=== PATIENT | female | born 2000 | race Caucasian/White ===

== ENCOUNTER 2024-10-01 16:51 | Outpatient (OUT) | payer OTHER, SELFPAY ==
--- NOTE | 2024-10-01 17:05 | US_ITS ---
The [address] [address] Patient Name: YEFRI CURRAN MRN: [id number] date: 2000 Sex: F Assigned Patient Location: Current Patient Location: Accession/Order Number: [id number] Exam Date: 10/01/2024 17:09 Report Date: 10/04/2024 08:05 At the request of: CHELO MYERS Procedure: US OB growth EXAMINATION: US OB growth HISTORY: O26.849 COMPARISON: No relevant comparison available. FINDINGS: Heart Rate: 139.18 bpm Amniotic Fluid Volume: 15.1 cm; normal range Number: 1 Position: BREECH BIOMETRY: BPD: 7.06 cm; 28 weeks 2 days; 3.30 % HC: 27.83 cm; 30 weeks 3 days; 23 % AC: 24.98 cm; 29 weeks 1 day; 18.80 % FL: 5.55 cm; 29 weeks 2 days; 13.90 % EFW: 1363.39 g; 13.50 % FL/AC: 22.21 FL/BPD: 78.58 HC/AC: 1.11 GESTATIONAL AGE: Age by EDC: 30 weeks 1 day MIHIR by EDC: 2024-12-09 Age by US: 29 weeks 2 days MIHIR by US: 2024-12-15 US/US OB growth IMPRESSION: 1. Single live intrauterine with growth detailed above. 2. Biparietal diameter is at the 3rd percentile. Electronically authenticated by: AMARJIT MARQUEZ Date: 10/04/2024 08:05
== END 2024-10-01 16:52 | disposition home or self-care (01) ==
PROVIDERS: PCP Family Medicine; Visit Provider Midwife
DX: O26.843 Uterine size-date discrepancy, third trimester (principal); Z3A.29 29 weeks gestation of pregnancy
CPT/HCPCS: 76816

== ENCOUNTER 2024-10-25 10:30 | Observation (INO) | payer OTHER, SELFPAY ==
[2024-10-25] VITALS (67 sets, daily range): BP systolic 116–142; BP diastolic 74–91; PULSE 73–134; TEMP 36.4
--- OUTSIDE RECORDS SUMMARY | 2024-10-25 10:39 | XMS_ITS | CCD ---
Author Organization [facility] Care Team Providers Care Subassembly Assembler Name Role Phone Johanne Meza MD Primary Care Provider Johanne Meza MD Unavailable HIWOT BRYANT Attending Unavailable JOHANNE MEZA Primary Care Unavailable Johanne Meza MD Unavailable JOHANNE MEZA Primary Care Unavailable CASANDRA KINCAID Attending Unavailable CASANDRA KINCAID Referring Unavailable CALLI OJHANNE A Primary Care Unavailable Johanne Meza MD Primary Care Provider [phone] Johanne Meza MD Primary Care Provider [phone] [place] Referring Unavailable CALLI JOHANNE A Primary Care Unavailable BESS GONZALEZ Attending Unavailable FLORO, CHELO Referring Unavailable MEZA, JOHANNE A Primary Care Unavailable FLORO, CHELO L Attending Unavailable TANYA ROCHE Attending Unavailable FLORO, CHELO L Attending Unavailable FLORO, CHELO L Attending Unavailable FLORO, CHELO L Referring Unavailable FLORO, CHELO L Attending Unavailable FLORO, CHELO L Attending Unavailable FLORO, CHELO L Attending Unavailable FLORO, CHELO L Attending Unavailable FLORO, CHELO L Attending Unavailable FELICIANO CHAPA Attending Unavailable FLORO, CHELO L Attending Unavailable Allergies Allergy Classification Reported Allergen(s) Allergy Type Date of Onset Reaction(s) Facility (4 sources) Wheat gluten extract; Translations: [GLUTEN] Drug Allergy 0 Other: See Comments [facility] (20 sources) Ketamine; Translations: [KETAMINE] Drug Allergy 1 Seizures [facility] Medications Current Medications Medication Drug Class(es) Dates Sig (Normalized) Sig (Original) acetaminophen 325 mg / butalbital 50 mg / caffeine 40 mg oral tablet (10 sources) Barbiturate, Central Nervous System Stimulant, Methylxanthine Start: 06-14-2024 End: 07-14-2024 take 1 tablet by mouth every six hours as needed for headache and headache and headache butalbital-aceta minophen-caffein e 50-325-40 MG tablet Indications: headache in second trimester Take 1 tablet by mouth every 6 (six) hours if needed for headaches 20 tablet 06/14/2024 07/14/2024 Active folic acid 0.8 mg oral tablet (20 sources) Start: 05-14-2024 End: 08-12-2024 take 1 tablet by mouth once daily folic acid (Folvite) 800 MCG tablet Indications: Seizure disorder (CMS/HCC) Take 1 tablet (0.8 mg) by mouth Daily 90 tablet 3 05/14/2024 08/12/2024 Active Start: 06-01-2023 End: 05-08-2025 take 1 tablet by mouth once daily folic acid (Folvite) 1 MG tablet Indications: 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 180 tablet 3 06/07/2022 Active Comment on above: Take 1 tablet by jacquelyn once daily. 24 hr levETIRAcetam 500 mg extended release oral tablet (20 sources) Start: 4 End: 4 take 4 tablets by mouth once daily at bedtime levETIRAcetam XR (Keppra XR) 500 MG 24 hr tablet Indications: Seizure disorder (CMS/HCC) TAKE FOUR TABLETS BY MOUTH EVERY NIGHT AT BEDTIME 120 tablet 3 09/13/2024 Active Start: 05-14-2024 End: 10-03-2024 take 1 tablet by mouth once daily levETIRAcetam XR (Keppra XR) 500 MG 24 hr tablet Indications: Seizure disorder (CMS/HCC) Take 1 tablet (500 mg) by mouth Daily 90 tablet 3 07/05/2024 07/05/2024 Discontinued (Reorder) Start: 07-29-2023 End: 05-14-2024 take 4 tablets by mouth every twenty-four hours at bedtime levETIRAcetam XR (Keppra XR) 500 MG 24 hr tablet Indications: Seizure disorder (CMS/HCC) Take 4 tablets (2,000 mg) by mouth at bedtime. 120 tablet 11 07/29/2023 05/14/2024 Discontinued Start: 10-08-2021 End: 06-06-2023 take 1 tablet by mouth once daily at bedtime levETIRAcetam XR (KEPPRA XR) 500 mg 24 hr tablet Indications: Generalized convulsive epilepsy without intractable epilepsy (HCC) Take (4) tablets by mouth once daily at bedtime (=2000mg/day). 360 tablet 3 06/07/2022 06/06/2023 Active take 1 tablet by jacquelyn th in the morning levETIRAcetam (KEPPRA) 250 mg tablet Take 1 tablet (250 mg total) by mouth in the morning. Active Comment on above: Take (4) tablets by mouth once daily at bedtime (=2000mg/day). Magnesium Oxide (5 sources) magnesium oxide (Mag-Ox) 400 mg tablet 400 mg Daily Active ondansetron 8 mg disintegrating oral tablet (10 sources) Serotonin-3 Receptor Antagonist Start: End: take 1 tablet by mouth every eight hours as needed for nausea and vomiting and headache and headache ondansetron ODT (Zofran-ODT) 8 MG disintegrating tablet Indications: headache in second trimester Take 1 tablet (8 mg) by mouth every 8 (eight) hours if needed for nausea or vomiting 20 tablet 1 06/14/2024 07/14/2024 Active es960-pcym-zblrk acid ( 19) 29 mg iron- 1 mg tablet,chewable (1 source) yp752-apkm-crfbs acid ( 19) 29 mg iron- 1 mg tablet,chewable Chew 1 tablet and swallow in the morning. Active sucralfate 1000 mg oral tablet (1 source) Aluminum Complex Start: End: take 1 tablet by mouth at bedtime sucralfate (CARAFATE) 1 gram tablet Take 1 tablet (1 g total) by mouth in the morning and 1 tablet (1 g total) at noon and 1 tablet (1 g total) in the evening and 1 tablet (1 g total) before bedtime. Do all this for 14 days. 56 tablet 0 12/20/2023 01/03/2024 Active terbinafine hydrochloride 10 mg/ml topical cream (10 sources) Allylamine Antifungal Start: terbinafine (LamISIL AT) 1 % cream Indications: Skin rash Apply topically 2 (two) times a day 28 g 1 09/04/2024 Active Problems Active Problems Problem Classification Problem Date Documented Da te Episodic/Chronic Abdominal pain (2 sources) Epigastric pain; Translations: [Abdominal pain] Onset: 12-20-2023 Episodic Epilepsy; convulsions (20 sources) Generalized convulsive epilepsy; Translations: [Generalized idiopathic epilepsy and epileptic syndromes, not intractable, without status epilepticus] Onset: 06-18-2015 Chronic Menstrual disorders (2 sources) Amenorrhea; Translations: [Amenorrhea, unspecified] 05-03-2024 Chronic Other complications of (2 sources) Seizure disorder; Translations: [Diseases of the nervous system complicating , second trimester] Onset: 07-25-2024 07-25-2024 Episodic Other complications of (1 source) Diseases of the nervous system complicating , second trimester; Translations: [Diseases of the nervous system complicating , second trimester] Onset: 07-25-2024 Episodic Other complications of (4 sources) Headache; Translations: [Other specified related conditions, second trimester] 08-07-2024 Episodic Other complications of (4 sources) Finding related to ; Translations: [ related conditions, unspecified, third trimester] 09-04-2024 Episodic Other connective tissue disease (2 sources) Pain in left foot; Translations: [Pain in left foot] 09-21-2024 Episodic Other and delivery including normal (12 sources) Second trimester ; Translations: [Encounter for supervision of normal first , second trimester] 08-07-2024 Episodic Other screening for suspected conditions (not mental disorders or infectious disease) (5 sources) Encounter for other specified screening; Translations: [Patient encounter status] Onset: 07-25-2024 09-04-2024 Episodic Other skin disorders (2 sources) Eruption; Translations: [Rash and other nonspecific skin eruption] 09-04-2024 Episodic Other skin disorders (2 sources) Ingrowing toenail; Translations: [Ingrowing nail] 09-21-2024 Episodic Unclassified (1 source) HIGH STOMACH PAINS, Onset: 12-20-2023 Unclassified (20 sources) OB Reminders Onset: 05-19-2024 05-19-2024 Unclassified (1 source) stable seizure disordor . Onset: 07-25-2024 Past or Other Problems Problem Classification Problem Date Documented Da te Episodic/Chronic Other complications of (2 sources) Hyperemesis gravidarum; Translations: [Vomiting of , unspecified] 06-14-2024 Episodic NEGATED: Highlighted row has been ruled out!Unclassified (1 source) No known active problems 02-06-2021 Results Test Name Value Interpretation Reference Range Facility Bacteria identified Cx Nom ( U)on 05-06-2024 Appearance (U) Adequate [facility] Internal identifier for Provider [id number] [facility] Specimen source Nom (Unsp spec) URINE [facility] STATUS FINAL formerly [facility] Laboratory - Drug toxicology on 05-06-2024 4-Ralarfowmg-4,5-Dimethy l-3,3-Diphenylpyrrolidin e (EDDP) Ql (U) Negative NINF - 100 ng/mL [facility] Amphetamines Ql (U) Negative NINF - 5 00 ng/mL [facility] Barbiturates Ql (U) Negative NINF - 3 00 ng/mL [facility] Benzodiazepines Ql (U) Negative NINF - 100 ng/mL [facility] Benzoylecgonine Ql (U) Negative NINF - 150 ng/mL [facility] Opiates Ql (U) Negative NINF - 100 ng/mL [facility] oxyCODONE Ql (U) Negative NINF - 100 ng/mL [facility] Phencyclidine Ql (U) Negative NINF - 25 ng/mL [facility] Tetrahydrocannabinol Screen method >20 ng/mL Ql (U) Negative NINF - 20 ng/mL [facility] Laboratory - Microbiology an d Antimicrobial susceptibilityon 05-06-2024 Bacteria identified Cx Nom (U) SEE NOTE [facility] Comment on above: Mixed genital oma isolated. These superficial bacteria are not indicative of a urinary tract infection. No further organism identification is warranted on this specimen. If clinically indicated, recollect clean-catch, mid-stream urine and transfer immediately to Urine Culture Transport Tube. Laboratory - Miscellaneous t estson 05-06-2024 Service comment (Unsp spec) [Interp] [facility] Comment on above: This urine was carol zed for the presence of WBC, RBC, bacteria, casts, and other formed elements. Only those elements seen were reported. Laboratory - Urinalysison Bacteria LM.HPF (Urine sed) [#/Area] FEW Abnormal NONE SEEN /HPF [facility] N. gonorrhoeae DNA SADIE+probe Ql (Cervical mucus)on 05-06-2024 C. trachomatis rRNA SADIE+probe Ql (Unsp spec) Not detected NOT DETECTED [facility] N. gonorrhoeae rRNA SADIE+probe Ql (Unsp spec) Not detected NOT DETECTED [facility] No Panel Informationon 05-06 (ALWAYS MESSAGE) [facility] Comment on above: See Note 1 Note 1 This drug testing is for medical treatment only. Analysis was performed as non-forensic testing and these results should be used only by healthcare providers to render diagnosis or treatment, or to monitor progress of medical conditions. For assistance with interpreting these drug results, please contact a [facility] Toxicology Specialist: [phone] ( ), M-F, 8am-6pm EST. The analytical perfo rmance characteristics of this assay, when used to test SurePath(TM) specimens have been determined by [facility]. The modifications have not been cleared or approved by the FDA. This assay has been validated pursuant to the CLIA regulations and is used for clinical purposes. For additional information, please refer to https://education.Toldo/faq/CJX465 (This link is being provided for information/ educational purposes only.) Interpretation and review of laboratory results Abnormal [facility] SPLIT 05/03/2024 FROM [id number] [employer] [facility] Organization Information Site ID: QPT Name: [facility] Address: [address] [place] [address], [address] [place] [id number] Director: Jd Crystal MD formerly [facility] Performing Organization Information Site ID: QTW Name: [facility] Address: [address] [place] [id number] Director: Verna Regan [facility] CBC panel Auto (Bld)on 05-04 Erythrocyte distribution width (RBC) [Ratio] 11.7 % 11.0 - 15.0 % [facility] Hematocrit (Bld) [Volume fraction] 40.2 % 35.0 - 45.0 % [facility] Hemoglobin (Bld) [Mass/Vol] 14.0 g/dL 11.7 - 15.5 g/dL [facility] MCH (RBC) [Entitic mass] 32.0 pg 27. 0 - 33.0 pg [facility] MCHC (RBC) [Mass/Vol] 34.8 g/dL 32.0 - 36.0 g/dL [facility] MCV (RBC) [Entitic vol] 92.0 fL 80.0 - 100.0 fL [facility] Platelet mean volume (Bld) [Entitic vol] 10.8 fL 7.5 - 12.5 fL [facility] Platelets (Bld) [#/Vol] 255 10*3/uL [facility] RBC (Bld) [#/Vol] 4.37 10*6/uL [facility] WBC (Bld) [#/Vol] 9.6 10*3/uL [facility] Laboratory - Blood bankon ABO group Nom (Bld) AB [facility] Blood group antibody screen Ql Detected [facility] Comment on above: Reference range No antibodies detected This assay is a screening test for the detection of red blood cell antibodies. The test is not to be used for pretransfusion screening or for the medical management of an alloimmunized . Rh Nom (Bld) Positive [facility] Comment on above: For additional information, please refer to http://education.Stadius/faq/KZP930 (This link is being provided for informational/ educational purposes only.) Laboratory - Chemistry and C hemistry - challengeon 05-04-2024 TSH Qn 1.33 m[IU]/L mIU/L [facility] Comment on above: Reference Range > or = 20 Years 0.40-4.50 Ranges First trimester 0.26-2.66 Second trimester 0.55-2.73 Third trimester 0.43-2.91 Laboratory - Hematology and Cell countson 05-04-2024 HbA1c (Bld) [Mass fraction] 5.1 % [facility] Comment on above: For the purpose of s creening for the presence of diabetes: <5.7% Consistent with the absence of diabetes 5.7-6.4% Consistent with increased risk for diabetes (prediabetes) > or =6.5% Consistent with diabetes This assay result is consistent with a decreased risk of diabetes. Currently, no consensus exists regarding use of hemoglobin A1c for diagnosis of diabetes in children. According to [place] Diabetes Association (ADA) guidelines, hemoglobin A1c <7.0% represents optimal control in non- diabetic patients. Different metrics may apply to specific patient populations. Standards of Medical Care in Diabetes(ADA). This test was performed on the Jason lani c503 platform. Effective 09/26/23, a change in test platforms from the Cerna Dryer Operator to the Jason lani c503 may have shifted HbA1c results compared to historical results. Based on laboratory validation testing conducted at [facility], the Jason platform relative to the Cerna platform had an average increase in HbA1c value of < or = 0.3%. This difference is within accepted variability established by the National Glycohemoglobin Standardization Program. Note that not all individuals will have had a shift in their results and direct comparisons between historical and current results for testing conducted on different platforms is not recommended. Laboratory - Microbiology an d Antimicrobial susceptibilityon 05-04-2024 HBV surface Ag IA Ql Non-Reactive NON-REACTIVE [facility] Comment on above: For additional information, please refer to http://[employer].Toldo/faq/NMU299 (This link is being provided for informational/ educational purposes only.) HCV Ab IA Ql Non-Reactive NON-REACTIVE [facility] Comment on above: HCV antibody was non-reactive. There is no laboratory evidence of HCV infection. In most cases, no further action is required. However, if recent HCV exposure is suspected, a test for HCV RNA (test code 95893) is suggested. For additional information please refer to http://education.Toldo/faq/YHN65h6 (This link is being provided for informational/ educational purposes only.) HIV 1+2 Ab+HIV1 p24 Ag IA Ql Non-Reactive NON-REACTIVE [facility] Comment on above: HIV-1 antigen and HI V-1/HIV-2 antibodies were not detected. There is no laboratory evidence of HIV infection. PLEASE NOTE: This information has been disclosed to you from records whose confidentiality may be protected by state law. If your state requires such protection, then the state law prohibits you from making any further disclosure of the information without the specific written consent of the person to whom it pertains, or as otherwise permitted by law. A general authorization for the release of medical or other information is NOT sufficient for this purpose. For additional information please refer to http://education.Toldo/faq/UTW033 (This link is being provided for informational/ educational purposes only.) The performance of this assay has not been clinically validated in patients less than 2 years old. Reagin Ab RPR Ql (S) Non-Reactive NON-REACTIVE [facility] Rubella virus IgG Qn (S) 1.80 [IU]/mL Index [facility] Comment on above: Index Interpretation ----- <0.90 Not consistent with immunity 0.90-0.99 Equivocal > or = 1.00 Consistent with immunity The presence of rubella IgG antibody suggests immunization or past or current infection with rubella virus. No Panel Informationon 05-04 COLLECTION KIT GIVEN TO PATIENT. PATIENT ADVISED TO RETURN. [employer] Organization Information Site ID: QPT Name: [facility] Address: [address] [place] [address], [address] [place] [phone] Director: Jd Crystal MD formerly [facility] HCG ( test) Ql (U)o n 05-03-2024 Interpretation and review of laboratory results Abnormal [facility] Preg Test, Ur Positive formerly [facility] US OB < 14 WEEKS EARLYon US OB < 14 WEEKS EARLY TITLE OF EXAM: OB Ultrasound: REASON FOR EXAM: Dating TECHNIQUE: Grayscale imaging is performed. Measurements: heart rate: 163 bpm Sac: 3.0 cm CRL: 1.7 cm GA for sonogram: 8.1 wk (07.5-08.8) MIHIR: 12/09/2024 Clinical Summary: Early intrauterine is seen with positive cardiac activity. Yolk sac is identified and within normal limits. heart is observed with a heart rate of 163 bpm. Uterus and adnexae: No abnormalities seen. Dictated and transcribed 05/04/24/dpd This report has been electronically signed and approved by the interpreting radiologist. Electronically Signed Vijay Jasmine M.D. 2024-05-04 15:47:45 Normal Not Available CBC AND AUTO DIFFon 12-20-19 24 ABSOLUTE BASOPHIL 0.1 X10E9/L Normal 0.0-0.[address] [facility] Comment on above: Performed By: #### C QAMAR CMP, 3040-3 #### [facility] ([id number]) [address] [place] [address] ABSOLUTE NEUTROPHIL 5.8 X10E9/L Normal 1.5-6.6 [facility] Comment on above: Performed By: #### C BCA, CMP, 3040-3 #### [facility] ([id number]) [address] [place] [address] Basophils/100 WBC (Bld) 0.6 % Normal [facility] Comment on above: Performed By: #### C BCA, CMP, 3040-3 #### [facility] ([id number]) [address] [place] [address]661 Eosinophils (Bld) [#/Vol] 1.1 10*3/uL High 0.0-0.4 [facility] Comment on above: Performed By: #### C BCA, CMP, 3040-3 #### [facility] ([id number]) [address] [place] [address] 20384 Eosinophils/100 WBC (Bld) 11.4 % Normal [facility] Comment on above: Performed By: #### C BCA, CMP, 3040-3 #### [facility] ([id number]) [address] [place] [address] Erythrocyte distribution width (RBC) [Ratio] 12.3 % Normal 11.5-15.0 [facility] Comment on above: Performed By: #### C QAMAR [facility], 3039-12 #### [facility] ([id number]) [address] [place] [address] 89300 Hematocrit (Bld) [Volume fraction] 42.4 % Normal 35-47 [facility] Comment on above: Performed By: #### Lang FOOTE [facility], 3039-12 #### [facility] ([id number]) [address] [place] [address] 09611 Hemoglobin (Bld) [Mass/Vol] 14.9 g/dL Normal 11.7-15.5 [facility] Comment on above: Performed By: #### Lang FOOTE [facility], 3039-12 #### [facility] ([id number]) [address] [place] [address] 15883 Lymphocytes (Bld) [#/Vol] 1.8 10*3/uL Normal 1.0-3.5 [facility] Comment on above: Performed By: #### Lang FOOTE [facility], 3039-12 #### [facility] ([id number]) [address] [place] [address] 30296 Lymphocytes/100 WBC (Bld) 19.0 % Normal [facility] Comment on above: Performed By: #### Lang FOOTE [facility], 3039-12 #### [facility] ([id number]) [address] [place] [address] 99631 MCH (RBC) [Entitic mass] 31.3 pg Normal 27-34 [facility] Comment on above: Performed By: #### Lang FOOTE CMP, 3039-12 #### [facility] ([id number]) [address] [place] [address] 65856 MCHC (RBC) [Mass/Vol] 35.2 g/dL Normal 32-36 [facility] Comment on above: Performed By: #### Lang FOOTE CMP, 3039-12 #### [facility] ([id number]) [address] [place] [address] 24252 MCV (RBC) [Entitic vol] 89 fL Normal 80-100 [facility] Comment on above: Performed By: #### Lang FOOTE CMP, 3039-12 #### [facility] ([id number]) [address] [place] [address] 26809 Monocytes (Bld) [#/Vol] 0.8 10*3/uL Normal 0-0.9 [facility] Comment on above: Performed By: #### Lang FOOTE CMP, 3039-12 #### [facility] ([id number]) [address] [place] [address] 77538 Monocytes/100 WBC (Bld) 8.7 % Normal [facility] Comment on above: Performed By: #### Lang FOOTE CMP, 3039-12 #### [facility] ([id number]) [address] [place] [address] 86188 Neutrophils/100 WBC (Bld) 60.3 % Normal [facility] Comment on above: Performed By: #### Lang FOOTE CMP, 3039-12 #### [facility] ([id number]) [address] [place] [address] 42276 Platelet mean volume (Bld) [Entitic vol] 8.3 fL Normal 7-12 [facility] Comment on above: Performed By: #### Lang FOOTE CMP, 3039-12 #### [facility] ([id number]) [address] [place] [address] 71047 Platelets (Bld) [#/Vol] 231 10*3/uL Normal 150-450 [facility] Comment on above: Performed By: #### C BCA, CMP, 3040-3 #### [facility] ([id number]) [address] [place] [address] 39568 RBC COUNT 4.76 X10E12/L Normal 3.80-5.20 [facility] Comment on above: Performed By: #### C BCA, CMP, 0-3 #### [facility] ([id number]) [address] [place] [address] 83300 WBC (Bld) [#/Vol] 9.7 10*3/uL Normal 4.0-11.[address] [facility] Comment on above: Performed By: #### C BCA, CMP, 3039-3 #### [facility] ([id number]) [address] [place] [address] 33011 COMPREHENSIVE METABOLIC PANE Manny 12-20-2023 Albumin [Mass/Vol] 4.6 g/dL Normal 3.2-5.[address] [facility] Comment on above: Performed By: #### C BCA, CMP, 3039-3 #### [facility] ([id number]) [address] [place] [address] 52565 ALP [Catalytic activity/Vol] 61 U/L Normal 39-130 [facility] Comment on above: Performed By: #### C BCA, CMP, 3039-3 #### [facility] ([id number]) [address] [place] [address] 52185 ALT [Catalytic activity/Vol] 18 U/L Normal 0-31 [facility] Comment on above: Performed By: #### C BCA, CMP, 0-3 #### [facility] ([id number]) [address] [place] [address] 68178 Anion gap [Moles/Vol] 11 mmol/L Normal 5-15 [facility] Comment on above: Performed By: #### C BCA, CMP, 0-3 #### [facility] ([id number]) [address] [place] [address] 75432 AST [Catalytic activity/Vol] 18 U/L Normal 0-41 [facility] Comment on above: Performed By: #### C SIDDHARTHA FOOET, 3039-3 #### [facility] ([id number]) [address] [place] [address]20 Bilirubin [Mass/Vol] 0.5 mg/dL Normal 0.3-1.2 [facility] Comment on above: Performed By: #### C QAMAR CMP, 3 #### [facility] ([id number]) [address] [place] [address] 80221 Calcium [Mass/Vol] 9.7 mg/dL Normal 8.5-10.[address] [facility] Comment on above: Performed By: #### C QAMAR CMP, 3 #### [facility] ([id number]) [address] [place] [address] 22657 Chloride [Moles/Vol] 101 mmol/L Normal 98-109 [facility] Comment on above: Performed By: #### C QAMAR, [facility], 3 #### [facility] ([id number]) [address] [place] [address] 49403 CO2 [Moles/Vol] 26 mmol/L Normal 22-32 [facility] Comment on above: Performed By: #### C BCA, CMP, 3 #### [facility] ([id number]) [address] [place] [address] 11671 Creatinine [Mass/Vol] 0.89 mg/dL Normal 0.40-1.00 [facility] Comment on above: Result Comment: METH OD TRACEABLE TO IDMS STANDARD Performed By: #### C QAMAR CMP, 3039-3 #### [facility] ([id number]) [address] [place] [address] 60526 eGFR (CKD-EPI) NON-RACE DEPENDENT >90 Normal >59 [facility] Comment on above: Result Comment: Reported eGFR is based on the CKD-EPI 2020 equation that does not use a race coefficient. Performed By: #### C SDIDHARTHA FOOTE, 3040-3 #### [facility] ([id number]) [address] [place] [address] 87687 Glucose [Mass/Vol] 97 mg/dL Normal 65-[address] [facility] Comment on above: Performed By: #### Lang FOOTE CMP, 3040-3 #### [facility] ([id number]) [address] [place] [address] 69207 Potassium [Moles/Vol] 3.7 mmol/L Normal 3.5-5.0 [facility] Comment on above: Performed By: #### Lang FOOTE CMP, 3040-3 #### [facility] ([id number]) [address] [place] [address] 82706 Protein [Mass/Vol] 7.8 g/dL Normal 6.0-8.[address] [facility] Comment on above: Performed By: #### Lang FOOTE CMP, 3040-3 #### [facility] ([id number]) [address] [place] [address] 59243 Sodium [Moles/Vol] 138 mmol/L Normal 134-[address] [facility] Comment on above: Performed By: #### Lang FOOTE CMP, 3040-3 #### [facility] ([id number]) [address] [place] [address] 81317 Urea nitrogen [Mass/Vol] 22 mg/dL Normal 5-23 [facility] Comment on above: Performed By: #### Lang FOOTE CMP, 3040-3 #### [facility] ([id number]) [address] [place] [address] ABDOMEN AND PELVIS W CONT on 12-20-2023 CT ABDOMEN AND PELVIS W CONT CT ABDOMEN AND PELVIS W CONT CLINICAL INFORMATION: Epigastric pain TECHNIQUE: CT ABDOMEN AND PELVIS W CONT CT images of the abdomen and pelvis are obtained. Intravenous contrast was administered. Images are reformatted in the sagittal and coronal planes. Trace free pelvic fluid is likely physiologic. No pneumoperitoneum. Bowel is nondistended. Moderate colonic stool noted. What appears to be retrocecal appendix is normal in caliber, although difficult to visualize. Kidneys enhance homogeneously without hydronephrosis. Liver and spleen are unremarkable. No CT evidence of gallstones or gallbladder distention. No obvious biliary dilatation. Portal and mesenteric vessels enhance normally. Osseous structures are intact. No gastric distention. IMPRESSION: No acute abdominal findings. Moderate colonic stool burden. All CT scans at this facility use dose modulation, iterative reconstruction, and/or weight based dosing when appropriate to reduce radiation dose to as low as reasonably achievable. 4 Finalized by Beck Dodd MD on 12/20/2023 6:36 PM Normal [facility] HCG ( test) Ql (U)o n 12-20-2023 Beta HCG ( test) Ql (U) Negative Normal NEG [facility] Comment on above: Performed By: #### 2 106-3 #### [facility] ([id number]) [address] [place] [address] 57155 LIPASEon 12-20-2023 Lipase [Catalytic activity/Vol] 28 U/L Normal 17-40 [facility] Comment on above: Performed By: #### C BCA, CMP, 3040-3 #### [facility] ([id number]) [address] [place] [address] 16171 URN MACROSCOPIC NURon 2023 BILIRUBIN ALISON Negative Normal NEG [facility] Comment on above: Performed By: #### N UM #### [facility] ([id number]) [address] [place] [address] 59008 BLOOD/HGB ALISON Negative Normal NEG [facility] Comment on above: Performed By: #### N UM #### [facility] ([id number]) [address] [place] [address] 08740 GLUCOSE ALISON Negative Normal NEG [facility] Comment on above: Performed By: #### N UM #### [facility] ([id number]) [address] [place] [address] 42701 KETONES ALISON Negative Normal NEG [facility] Comment on above: Performed By: #### N UM #### [facility] ([id number]) [address] [place] [address] 22298 LEUKOCYTE ESTERASE ALISON Negative Normal NEG [facility] Comment on above: Performed By: #### N UM #### [facility] ([id number]) [address] [place] [address] 19801 NITRITE ALISON Negative Normal NEG [facility] Comment on above: Performed By: #### N UM #### [facility] ([id number]) [address] [place] [address] 80898 PH ALISON 7.0 Normal 5.0-8.5 [facility] Comment on above: Performed By: #### N UM #### [facility] ([id number]) [address] [place] [address] 67485 PROTEIN ALISON Negative Normal NEG [facility] Comment on above: Performed By: #### N UM #### [facility] ([id number]) [address] [place] [address] [place] [address] SPECIFIC GRAVITY ALISON 1.020 Normal 1.003-1.035 [facility] Comment on above: Performed By: #### N UM #### [facility] ([id number]) [address] [place] [address] 11330 UROBILINOGEN ALISON 0.2 eu/dL Normal <1.1 [facility] Comment on above: Performed By: #### N UM #### [facility] ([id number]) [address] [place] [address], [place] [address] TONIAYari 06-23[birth year]2022 CNPN Telephone (NE50MN) ---- YEFRI XIONG ([id number]) 4 F Date Time Provider Department 06/23/22 HIWOT BRYANT NE50MN During your visit today, we recorded the following information about you: Gi Ndiaye Sec 06/23/2022 10:42 AM Signed General call : Full name of person calling: eNhal Xiong Relationship to patient: mom Phone # : [phone] Reason for call: Please mail another copy of lab order to family. Mom has not received it. Patient of Dr. Annette Mckeon RN 06/23/2022 10:48 AM Signed Lab order mailed. Liz Mckeon RN Allergies As of Date: 06/23/2022 Noted Allergy Reaction GLUTEN 2019 14 - Other: See Comments Comments: Headaches Date Reviewed: 2019 Reviewed by: Sharmaine Jackson Ma - Fully Assessed Reason for Visit: Other [Other] Cmt: Please mail another copy of lab order to family. Prescriptions as of 06/23/2022 - levETIRAcetam XR (KEPPRA XR) 500 mg 24 hr tablet Take (4) tablets by mouth once daily at bedtime (=2000mg/day). - folic acid 1 mg tablet Take 1 tablet by mouth once daily. 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 No worrisome mass lesions are seen. Endometrium appears unremarkable. No fluid is seen within the cul-de-sac. Both ovaries appear normal for this age. 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 Last seen by Dr. Bryant on 05/05/[address] Bryant from telephone encounter on 06/01/21. Yefri has had no seizures since 12/2019 on levetiracetam 1500 mg/d - but level on this dose in 05/2021 was lower - 13.6 mg/l (usual range 12-45 mg/l) - than at the time of the prior seizure on a lower dose (1000 mg/d). ? I recommend to again discuss adherence, increase the levetiracetam dose to 2000 mg/d, and recheck a level in 1 month. To maintain driving privileges, we will look for a protective serum level Received outside lab results Yes Current AEDs ( mg/kg/d/) / recent drug levels : Levetiracetam 2000 mg/day / Level on 07/08/21was 20.9 mg/L (range 12-46 mg/L) Results routed to HOLLEY Li MD 07/15/2021 4:29 PM Signed Result is normal. Plan remains as discussed previously. I agree to maintaining driving privileges. MD Liz Hill RN 07/15/2021 4:34 PM Signed Results shared via [employer] message. Liz Mckeon RN Allergies As of Date: 07/13/2021 Noted Allergy Reaction GLUTEN 2019 14 - Other: See Comments Comments: Headaches Date Reviewed: 2019 Reviewed by: Sharmaine Jackson Ma - Fully Assessed Reason for Visit: Outside Lab Results [753] Cmt: [facility] Prescriptions as of 07/15/2021 - levETIRAcetam XR (KEPPRA XR) 500 mg 24 hr tablet Take (4) tablets by mouth once daily at bedtime (=2000mg/day). - folic acid 1 mg tablet Take 1 tablet by mouth once daily. 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 Encounter Status:Closed by LIZ MCKEON on 07/15/21 Normal [facility] Vital Signs Date Time Vital Sign Value Performing Clinician Faci lity 10-08-2024 16:05-0500 Body mass index (BMI) [Ratio] 27.73 kg/m2 Chelo Briscoe CNM Work Phone: [facility] 10-08-2024 16:05-0500 Body weight 64.41 kg Chelo Floro CNM Work Phone: [facility] 10-08-2024 16:05-0500 Diastolic blood pressure 78 mm[Hg] Chelo Floro CNM Work Phone: [facility] 10-08-2024 16:05-0500 Systolic blood pressure 120 mm[Hg] Chelo Floro CNM Work Phone: [facility] 09-21-2024 08:52-0500 Body height 152.4 cm Feliciano Chapa DPM Work Phone: [facility] 09-21-2024 08:52-0500 Body mass index (BMI) [Ratio] 27.15 kg/m2 Feliciano Chapa DPM Work Phone: [facility] 09-21-2024 08:52-0500 Body weight 63.05 kg Feliciano Chapa DPM Work Phone: [facility] 09-04-2024 14:25-0500 Body mass index (BMI) [Ratio] 27.15 kg/m2 Chelo Floro CNM Work Phone: [facility] 09-04-2024 14:25-0500 Body weight 63.05 kg Chelo Floro CNM Work Phone: [facility] 09-04-2024 14:25-0500 Diastolic blood pressure 80 mm[Hg] Chelo Floro CNM Work Phone: [facility] 09-04-2024 14:25-0500 Systolic blood pressure 118 mm[Hg] Chelo Floro CNM Work Phone: [facility] 08-07-2024 14:33-0400 Body mass index (BMI) [Ratio] 26.95 kg/m2 Chelo Floro CNM Work Phone: [facility] 08-07-2024 14:33-0400 Body weight 62.6 kg Chelo Floro CNM Work Phone: [facility] 08-07-2024 14:33-0400 Diastolic blood pressure 74 mm[Hg] Chelo Floro CNM Work Phone: [facility] 08-07-2024 14:33-0400 Systolic blood pressure 118 mm[Hg] Chelo Floro CNM Work Phone: [facility] 07-25-2024 11:40-0400 Body height 152.4 cm Bess Gonzalez MD Work Phone: [facility] 07-25-2024 11:40-0400 Body mass index (BMI) [Ratio] 25.62 kg/m2 Bess Gonzalez MD Work Phone: [facility] 07-25-2024 11:40-0400 Body weight 59.51 kg Bess Gonzalez MD Work Phone: [facility] 07-25-2024 11:40-0400 Diastolic blood pressure 77 mm[Hg] Bess Gonzalez MD Work Phone: [facility] 07-25-2024 11:40-0400 Heart rate 78 /min Bess Gonzalez MD Work Phone: [facility] 07-25-2024 11:40-0400 Systolic blood pressure 132 mm[Hg] Bess Gonzalez MD Work Phone: [facility] 07-02-2024 16:35-0400 Body mass index (BMI) [Ratio] 24.8 kg/m2 Chelo Floro CNM Work Phone: [facility] 07-02-2024 16:35-0400 Body weight 57.61 kg Chelo Floro CNM Work Phone: [facility] 07-02-2024 16:35-0400 Diastolic blood pressure 70 mm[Hg] Chelo Floro CNM Work Phone: [facility] 07-02-2024 16:35-0400 Systolic blood pressure 120 mm[Hg] Chelo Floro CNM Work Phone: [facility] 06-14-2024 09:42-0400 Body mass index (BMI) [Ratio] 24.22 kg/m2 Chelo Floro CNM Work Phone: [facility] 06-14-2024 09:42-0400 Body weight 56.25 kg Chelo Floro CNM Work Phone: [facility] 06-14-2024 09:42-0400 Diastolic blood pressure 70 mm[Hg] Chelo Floro CNM Work Phone: [facility] 06-14-2024 09:42-0400 Systolic blood pressure 120 mm[Hg] Chelo Floro CNM Work Phone: [facility] 06-04-2024 15:43-0400 Body mass index (BMI) [Ratio] 23.83 kg/m2 Chelo Floro CNM Work Phone: [facility] 06-04-2024 15:43-0400 Body weight 55.34 kg Chelo Floro CNM Work Phone: [facility] 06-04-2024 15:43-0400 Diastolic blood pressure 80 mm[Hg] Chelo Floro CNM Work Phone: [facility] 06-04-2024 15:43-0400 Systolic blood pressure 118 mm[Hg] Chelo Floro CNM Work Phone: [facility] 05-03-2024 15:10-0400 Body mass index (BMI) [Ratio] 24.22 kg/m2 Chelo Floro CNM Work Phone: [facility] 05-03-2024 15:10-0400 Body weight 56.25 kg Chelo Floro CNM Work Phone: [facility] 11-18-2023 10:47-0500 Body height 152.4 cm Tanya Roche MD Work Phone: [facility] 11-18-2023 10:47-0500 Body mass index (BMI) [Ratio] 24.8 kg/m2 Tanya Roche MD Work Phone: [facility] 11-18-2023 10:47-0500 Body weight 57.61 kg Tanya Roche MD Work Phone: [facility] 11-18-2023 10:47-0500 Diastolic blood pressure 78 mm[Hg] Tanya Roche MD Work Phone: [facility] 11-18-2023 10:47-0500 Heart rate 68 /min Tanya Roche MD Work Phone: [facility] 11-18-2023 10:47-0500 Systolic blood pressure 122 mm[Hg] Tanya Roche MD Work Phone: [facility] Encounters Encounter Date Encounter Type Care Provider Facility Start: 10-08-2024 End: 10-08-2024 Subsequent care visit Chelo L Sheriarnaud CNM Work Phone: [facility] Comment on above: Encounter for prenat al care of first , third trimester (Primary Dx); Other epilepsy with status epilepticus, not intractable ([facility]) Start: 10-08-2024 End: 10-08-2024 ambulatory CHELO Arthur CARBAJALO Not Available Start: 10-08-2024 End: 10-08-2024 Bamboo flowsheet Chelo Arthur Carbajalo CNM Work Phone: [facility] Start: 10-08-2024 End: 10-08-2024 Bamboo flowsheet Chelo Arthur Carbajalo CNM Work Phone: [facility] Start: 09-21-2024 End: 09-21-2024 Bamboo flowsheet Feliciano Chapa DPM Work Phone: [facility] Start: 09-21-2024 End: 09-21-2024 Bamboo flowsheet Feliciano Chapa DPM Work Phone: [facility] Start: 09-21-2024 End: 09-21-2024 Office outpatient visit 15 minutes Feliciano Chapa DPM Work Phone: [facility] Comment on above: Ingrown toenail (Akila aster Dx); Left foot pain Start: 09-21-2024 End: 09-21-2024 ambulatory FELICIANO CHAPA Not Available Start: 09-10-2024 End: 09-10-2024 Telephone encounter Chelo Carbajalo CNM Work Phone: [facility] Start: 09-05-2024 End: 09-05-2024 Telephone encounter Chelo Arthur Floro CNM Work Phone: [facility] Start: 09-04-2024 End: 09-04-2024 Subsequent care visit Chelo Arthur Floro CNM Work Phone: [facility] Comment on above: Skin rash (Primary D x); Screening for diabetes mellitus (DM); Screening for iron deficiency anemia; related condition in third trimester Start: 09-04-2024 End: 09-04-2024 ambulatory CHELO L FLORO Not Available Start: 09-04-2024 End: 09-04-2024 Bamboo flowsheet Chelo L Floro CNM Work Phone: [facility] Start: 09-04-2024 End: 09-04-2024 Bamboo flowsheet Chelo L Floro CNM Work Phone: [facility] Start: 08-07-2024 End: 08-07-2024 ambulatory CHELO L FLORO Not Available Start: 08-07-2024 End: 08-07-2024 Subsequent care visit Chelo Arthur Floro CNM Work Phone: [facility] Comment on above: Encounter for prenat al care of first , second trimester (Primary Dx); headache in second trimester; Other epilepsy with status epilepticus, not intractable ([facility]) Start: 08-07-2024 End: 08-07-2024 Bamboo flowsheet Chelo L Floro CNM Work Phone: [facility] Start: 08-07-2024 End: 08-07-2024 Bamboo flowsheet Chelo Briscoe CNM Work Phone: [facility] Start: 07-30-2024 End: 07-30-2024 Orders Only Tanya Roche MD Work Phone: [facility] Start: 07-25-2024 End: 07-25-2024 Telephone encounter Chelo Briscoe CNM Work Phone: [facility] Start: 07-25-2024 End: 07-25-2024 Office consultation new/estab patient 60 min Bess Gonzalez MD Work Phone: [facility] Comment on above: Seizure disorder dur ing in second trimester ([facility]) (Primary Dx) Start: 07-25-2024 End: 07-25-2024 ambulatory [facility] Start: 07-10-2024 End: 07-10-2024 Chart abstracting Bess Gonzalez MD Work Phone: [facility] Start: 07-10-2024 End: 07-10-2024 Telephone encounter Chelo Briscoe CNM Work Phone: [facility] Start: 07-06-2024 End: 07-06-2024 Refill Tanya Roche MD Work Phone: [facility] Comment on above: Seizure disorder (CM S/HCC) Start: 07-05-2024 End: 07-05-2024 Refill Tanya Roche MD Work Phone: [facility] Comment on above: Seizure disorder (CM S/HCC) Start: 07-05-2024 End: 07-05-2024 Telephone encounter Tanya Roche MD Work Phone: [facility] Comment on above: Seizure disorder (CM S/HCC) Start: 07-02-2024 End: 07-02-2024 Subsequent care visit Chelo L Floro CNM Work Phone: [facility] Comment on above: Encounter for prenat al care of first , second trimester (Primary Dx); related condition in second trimester Start: 07-02-2024 End: 07-02-2024 ambulatory CHELO L FLORO Not Available Start: 07-02-2024 End: 07-02-2024 Bamboo flowsheet Chelo L Floro CNM Work Phone: [facility] Start: 07-02-2024 End: 07-02-2024 Bamboo flowsheet Chelo L Floro CNM Work Phone: [facility] Start: 06-14-2024 End: 06-14-2024 Telephone encounter Johanne Meza MD Work Phone: [facility] Start: 06-14-2024 End: 06-14-2024 Office outpatient visit 15 minutes Chelo L Floro CNM Work Phone: [facility] Comment on above: headache i n second trimester (Primary Dx); Excessive vomiting in Start: 06-14-2024 End: 06-14-2024 ambulatory CHELO L FLORO Not Available Start: 06-04-2024 End: 06-04-2024 Subsequent care visit Chelo L Floro CNM Work Phone: [facility] Comment on above: Encounter for prenat al care of first , first trimester (Primary Dx) Start: 06-04-2024 End: 06-04-2024 ambulatory CHELO L FLORO Not Available Start: 06-04-2024 End: 06-04-2024 Bamboo flowsheet Chelo L Floro CNM Work Phone: [facility] Start: 06-04-2024 End: 06-04-2024 Bamboo flowsheet Chelo L Floro CNM Work Phone: [facility] Start: 05-29-2024 End: 06-22-2024 Telephone encounter Chelo L Floro CNM Work Phone: [facility] Start: 05-03-2024 End: 05-03-2024 Initial care visit Chelo Briscoe CNM Work Phone: [facility] Comment on above: GA: 8w4d Start: 05-03-2024 End: 05-03-2024 ambulatory CHELO BRISCOE Not Available Start: 12-27-2023 End: 12-27-2023 ambulatory CHELO BRISCOE Not Available Start: 12-26-2023 Refill Casandra Jordin Abisai sarah 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 Work Phone: [facility] Start: 12-20-2023 End: 12-21-2023 Emergency department patient visit CASANDRA KINCAID [facility] Start: 11-18-2023 End: 11-18-2023 Office outpatient visit 15 minutes Tanya Roche MD Work Phone: [facility] Comment on above: 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 Start: 06-07-2022 End: 06-07-2022 ambulatory Hiwot Bryant MD Work Phone: Neurology Comment on above: Generalized convulsi ve epilepsy without intractable epilepsy (HCC) (Primary Dx) Start: 06-07-2022 End: 06-07-2022 Telemedicine consultation with patient Hiwot Bryant MD Work Phone: [facility] Start: 05-05-2022 Refill Hiwot Bryant MD Work Phone: Neurology Comment on above: Refill Request Procedures Date Procedure Procedure Detail Performing Clinician Start: 05-04-2024 Culture bacterial quanttative colony count urine Chelo L Floro CNM Work Phone: Start: 05-04-2024 DRUG TOX MONITORIGN 6 W/ CONF,URINE Chelo L Floro CNM Work Phone: Start: 05-04-2024 URINALYSIS MICROSCOPIC Chelo L Floro CNM Work Phone: Start: 05-03-2024 Antibody screen rbc each serum technique Chelo L Floro CNM Work Phone: Start: 05-03-2024 Hemoglobin glycosyla orly a1c Chelo L Floro CNM Work Phone: Start: 05-03-2024 Iaad ia hepatitis b surface antigen Chelo L Floro CNM Work Phone: Start: 05-03-2024 TSH W/REFLEX TO FT4 Lana april L Floro CNM Work Phone: Start: 05-03-2024 Urine test visual color cmprsn meths Cehlo L Floro CNM Work Phone: Start: 04-23-2021 Adult depression scr eening assessment Hiwot Bryant MD Work Phone: Plan of Treatment Date Care Activity Detail Author Start: 07-25-2025 Adult BMI Screening Adult BMI Screen ing [facility] Start: 07-25-2025 Tobacco Screening Tobacco Screening [facility] Start: 01-01-2025 DTaP,Tdap and Td Vaccines (7 - Td or Tdap) DTaP,Tdap and Td Vaccines (7 - Td or Tdap) [facility] Start: 12-27-2024 End: 12-27-2024 Patient encounter procedure 12/27/2024 2:00 PM EDT Office Visit [facility] [address] [facility] [place] [id number] Chelo Briscoe, CNM [address] [place] [address] [facility] Start: 12-19-2024 Adult BMI Screening Adult BMI Screen ing [facility] Start: 12-19-2024 Tobacco Screening Tobacco Screening [facility] Start: 10-23-2024 End: 10-23-2024 Patient encounter procedure 10/23/2024 3:30 PM EST Routine [facility] [address] [place] [id number] Chelo Briscoe, YESSENIAM [address] [place] [address] [facility] Start: 10-08-2024 End: 10-08-2024 Patient encounter procedure [facility] Comment on above: Arrived Start: 09-21-2024 End: 09-21-2024 Patient encounter procedure 09/21/2024 9:00 AM EST Office Visit [facility] [address] [facility] [id number] Feliciano Chapa, DPM [address] [place] [address] Arrived [facility] Comment on above: Arrived Start: 09-04-2024 End: 09-04-2024 Patient encounter procedure 09/04/2024 2:30 PM EST Routine [facility] [address] [place] [phone] Chelo Briscoe, CNM [address] [place] [address] [facility] Start: 09-04-2024 End: 09-04-2025 CBC panel - Blood by Automated count CBC Lab Routine Screening for iron deficiency anemia Expected: 09/04/2024 (Approximate), Expires: 09/04/2025 [facility] Comment on above: Expected: 09/04/2024 (Approximate), Expires: 09/04/2025 Start: 09-04-2024 End: 09-04-2025 GLUCOSE, GESTATIONAL SCREEN (50G)-135 CUTOFF GLUCOSE, GESTATIONAL SCREEN (50G)-135 CUTOFF Lab Routine Screening for diabetes mellitus (DM) Expected: 09/04/2024 (Approximate), Expires: 09/04/2025 [facility] Work Phone: Comment on above: Expected: 09/04/2024 (Approximate), Expires: 09/04/2025 Start: 09-04-2024 End: 09-04-2025 US for US OB follow up transabdominal approach Imaging Routine related condition in third trimester Expected: 09/04/2024, Expires: 09/04/2025 [facility] Comment on above: Expected: 09/04/2024 , Expires: 09/04/2025 Start: 08-07-2024 End: 08-07-2024 Patient encounter procedure 08/07/2024 2:30 PM EDT Routine [facility] [address] [place] [phone] Chelo Briscoe, YESSENIAM [address] [place] [address] [facility] Start: 07-30-2024 End: 07-30-2024 Professional / ancillary services management 07/30/2024 5:00 PM EDT Ancillary Procedure [facility] [address] [phone] [facility] Start: 07-30-2024 End: 07-30-2024 Patient encounter procedure 07/30/2024 4:30 PM EDT Routine [facility] [address] [place] [phone] Chelo Briscoe CNM [address] [place] [address] [facility] Start: 07-25-2024 End: 07-25-2024 Patient encounter procedure [facility] Start: 07-02-2024 End: 07-02-2024 Patient encounter procedure [facility] Comment on above: Arrived Start: 07-02-2024 End: 07-02-2025 US for US OB 14+ weeks anatomy scan Imaging Routine related condition in second trimester Expected: 07/02/2024, Expires: 07/02/2025 [facility] Work Phone: Comment on above: Expected: 07/02/2024 , Expires: 07/02/2025 Start: 06-10-2024 Influenza vaccination Influenza Vacc ine [facility] Start: 06-04-2024 End: 06-04-2024 Patient encounter procedure 06/04/2024 3:45 PM EDT Routine [facility] [address] [place] [phone] Chelo Briscoe, CNM [address] [place] [address] Arrived [facility] Comment on above: Arrived Start: 05-31-2024 End: 05-31-2024 Patient encounter procedure 05/31/2024 4:30 PM EDT Routine [facility] [address] [place] [phone] Chelo Briscoe, CNM [address] [place] [address] [facility] Start: 12-13-2023 End: 12-13-2023 Patient encounter procedure 12/13/2023 2:00 PM EST Office Visit [facility] [address] [place] [phone] Chelo Briscoe, CNM [address] [place] [address] [facility] Start: 11-18-2023 End: 11-18-2023 Patient encounter procedure 11/18/2023 10:50 AM EST Office Visit [facility] [address] [place] [address] Tanya Roche MD [address] [facility] [address] [place] [address] [facility] Start: 2023 Screening for malign ant neoplasm of cervix Pap Smear [facility] Start: 06-10-2023 Influenza vaccination Influenza Vacc ine [facility] Start: 06-10-2022 Influenza vaccination INFLUENZA (#1) [facility] Start: 06-07-2022 End: 08-07-2022 levETIRAcetam [Mass/volume] in Serum or Plasma LEVETIRACETAM Lab Routine Generalized convulsive epilepsy without intractable epilepsy (HCC) Expected: 06/07/2022, Expires: 08/07/2022 [facility] Work Phone: Comment on above: Expected: 06/07/2022 , Expires: 08/07/2022 Start: 04-23-2022 Adult depression screening assessment DEPRESSION SCREENING [facility] Start: 2021 Urine microalbumin profile DTAP,TDAP,TD (1 - Tdap) [facility] Start: 2020 Adult BMI Follow Up Plan Adult BMI Follow Up Plan [facility] Start: 2020 CHLAMYDIA SCREENING (18-24) CHLAMYDIA SCREENING (18-24) [facility] Start: 2020 GC (GONORRHEA) SCREENING (18-24) GC (GONORRHEA) SCREENING (18-24) [facility] Start: 2020 HEPATITIS C SCREENING HEPATITIS C SC REENING [facility] Start: 2020 HIV SCREENING HIV SCREENING [facility] Start: 2016 PEDS TO ADULT TRANSITION ANNUAL ASSESSMENT PEDS TO ADULT TRANSITION ANNUAL ASSESSMENT [facility] Start: 2014 Depression Screening Depression Scre ening [facility] Start: 2014 PEDS TO ADULT TRANSITION INITIAL DISCUSSION PEDS TO ADULT TRANSITION INITIAL DISCUSSION [facility] Start: 2013 HPV VACCINE (1 - 2-d ose series) HPV VACCINE (1 - 2-dose series) [facility] Start: 2012 MENINGOCOCCAL B: Consider based on risk (1 of 2 - Risk Bexsero 2-dose series) MENINGOCOCCAL B: Consider based on risk (1 of 2 - Risk Bexsero 2-dose series) [facility] Start: 05-09-2003 COVID-19 VACCINE (#1) COVID-19 VACCI NE (#1) [facility] Start: 2002 HEPATITIS B (1 of 3 - 3-dose series) HEPATITIS B (1 of 3 - 3-dose series) [facility] Immunizations Immunization Date Immunization Notes Care Provider Fa kacie 10-31-2020 influenza virus vaccine, unspecified formulation Casandra Kincaid APRN-[employer] Work Phone: [employer] Payers Date Payer Category Payer Commercial Managed C [facility] [employer] [place] [employer] [id number] 2023 Unknown [id number] 2023 Unknown [id number] 2022 Private Health Insurance [id number] 2022 Unknown [id number] 2018 Unknown [employer] [id number] 2018-Present [phone] [address] [address] [place] [address] PPO [id number] 2002 Unknown [id number] 2.16.840.1.092184.3.579.2 .1285 2002 Unknown [id number] 2.16.840.1.770836.3.579.2 .1285 2002 Unknown [id number] 2.16.840.1.608832.3.579.2 .1285 2002 Unknown [id number] 2.16.840.1.058419.3.579.2 .1285 2002 Unknown [id number] 2.16.840.1.291242.3.579.2 .1258 2002 Unknown [id number] 2.16.840.1.802015.3.579.2 .1258 2002 Unknown [id number] 2.16.840.1.181336.3.579.2 .1258 2002 Unknown [id number] 2.16.840.1.285416.3.579.2 .9 2002 Unknown [id number] 2.16.840.1.068096.3.579.2 .1258 2002 Unknown [id number] 2.16.840.1.200977.3.579.2 .1258 2002 Unknown [id number] 2.16.840.1.754185.3.579.2 .1258 2002 Unknown [id number] 2.16.840.1.186697.3.579.2 .1258 2002 Unknown [id number] 2.16.840.1.745872.3.579.2 .1258 2002 Unknown [id number] 2.16.840.1.884683.3.579.2 .1259 2002 Unknown [id number] 2.16.840.1.067598.3.579.2 .1259 2002 Unknown [id number] 2.16.840.1.511385.3.579.2 .1259 Social History Date Type Detail Facility Start: 10-09-2018 End: 11-08-2023 Tobacco smoking status NHIS Never smoked tobacco [facility] Start: 2019 [facility] Start: 2002 [facility] Start: 10-09-2018 End: 11-08-2023 Tobacco use and exposure Smokeless tobacco non-user [facility] Start: 05-21-2022 End: 05-31-2022 Exposure to SARS-CoV-2 (event) Unable to assess [facility] Work Phone: Start: 11-08-2023 End: 09-21-2024 Alcohol intake Lifetime non-drinker (finding) [facility] Start: 11-08-2023 End: 09-21-2024 History of Social function [facility] Start: 11-08-2023 End: 09-21-2024 Tobacco use panel [facility] Start: 2002 Sex Assigned At Not on file [facility] Childcare Unknown [facility] Start: 03-18-2024 [facility] Start: 05-24-2024 Gender identity Identifies as female gender (finding) [facility] Start: 05-13-2015 Sex Female (finding) [facility] Goals Date Patient Goal Desired Activity /State Personal health goal Clinical Notes 05-01-2014 to 10-08-2024 Chelo Briscoe CNM - 10/08/2024 4:15 PM Dottie Chapa DPM - 09/21/2024 9:00 AM ESTTelephone Encounter - Cheo Ying - 09/10/2024 10:16 AM Michelle Briscoe CNM - 09/04/2024 2:30 PM EST Note Date & Type Note Facility 10-08-2024 History of Present illness Narrative Subjective No chief complaint on file. Janki Persaud is a 23 y.o. at 31w1d with a working estimated date of delivery of 12/09/2024, by Last Menstrual Period who presents for a routine visit. She denies vaginal bleeding, leakage of fluid, decreased movements, or contractions. OB History Para Term AB Living 1 0 0 0 0 0 SAB IAB Ectopic Multiple Live Births 0 0 0 0 0 # Outcome Date GA Lbr Meliton/2nd Weight Sex Type Anes PTL Lv 1 Current Her is complicated by: seizure disorder/ epilepsy last seizure was 2019 almost 5 years ago. She sees neurology and did see MFM also Objective Physical Exam weight: 142 lb Expected Total Weight Gain: 25 lb-35 lb Pregravid BMI: 24.22 BP: 120/78 Urine protein-negative Urine glucose-negative Assessment/Plan Continue vitamin. Labs reviewed. GBS taken. Expected mode of delivery Follow up in 1 week for a routine visit. documented in this encounter [facility] 09-21-2024 History of Present illness Narrative Images from the original note were not included. Subjective Patient ID: Yefri Persaud is a 23 y.o. female who presents for Ingrown Toenail (23 yo OP presents today with possible ingrown on left 3rd digit, pt states she thinks all her nails are ingrown and would like looked over, pt denies infection.). HPI Established patient presents to clinic with concern of ingrowing toenails. Patient states that all of her lesser toenails feel like they are rubbing against her skin. She has noticed this for a couple of years. No treatment tried. She does try and trim her toenails regularly. Review of Systems Constitutional: Negative for activity change and fatigue. Respiratory: Negative for chest tightness and shortness of breath. Cardiovascular: Negative for chest pain and leg swelling. Musculoskeletal: Negative for arthralgias and joint swelling. Skin: Negative for color change and wound. Neurological: Negative for weakness and numbness. Psychiatric/Behavioral: Negative for agitation and behavioral problems. Hematological: Does not bruise/bleed easily. Allergic/Immunologic: Negative for immunocompromised state. Past medical History Past Medical History: Diagnosis Date Epilepsy ([facility]) 11/21/2023 ETD (eustachian tube dysfunction) History of being hospitalized 2009 Strep Seizure disorder ([facility]) Medications Current Outpatient Medications: folic acid (Folvite) 1 MG tablet, Take 1 tablet (1 mg) by mouth Daily, Disp: 30 tablet, Rfl: 11 levETIRAcetam XR (Keppra XR) 500 MG 24 hr tablet, TAKE FOUR TABLETS BY MOUTH EVERY NIGHT AT BEDTIME, Disp: 120 tablet, Rfl: 3 magnesium oxide (Mag-Ox) 400 mg tablet, 400 mg Daily, Disp: , Rfl: folic acid (Folvite) 1 MG tablet, Take 1,000 mcg by mouth in the morning. (Patient not taking: Reported on 09/21/2024), Disp: , Rfl: terbinafine (LamISIL AT) 1 % cream, Apply topically 2 (two) times a day (Patient not taking: Reported on 09/21/2024), Disp: 28 g, Rfl: 1 Allergies Ketamine Past Surgical History Past Surgical History: Procedure Laterality Date MOUTH SURGERY 08/2020 [place] teeth implant OTHER SURGICAL HISTORY 2002 Pyloric stenosis TONSILECTOMY, ADENOIDECTOMY, BILATERAL MYRINGOTOMY AND TUBES BMT and r/o retained L tube 06/21/2006; Tonsillectomy 11/18/2009 Family History Family History Problem Relation Name Age of Onset Hypertension Father Breast cancer Maternal Grandmother Hypertension Maternal Grandfather ALS Paternal Grandfather Objective Physical Exam Constitutional: General: She is not in acute distress. HENT: Head: Atraumatic. Cardiovascular: Pulses: Normal pulses. Musculoskeletal: Cervical back: No tenderness. Skin: Capillary Refill: Capillary refill takes less than 2 seconds. Comments: Left foot: There is some mild tenderness along the medial border of the 3rd toe. Mild impingement without drainage or cellulitis. No other tenderness to palpation. No drainage or cellulitis from any toe currently. Neurological: General: No focal deficit present. Mental Status: She is alert. Psychiatric: Mood and Affect: Mood normal. Behavior: Behavior normal. Assessment/Plan ICD-10-CM 1. Ingrown toenail L60.0 2. Left foot pain M79.672 Patient examined and evaluated. Left 3rd toe debrided in length to reduce impingement along the medial border of the toe. Patient noted mild improvement in symptoms after debridement. Discussed treatment options including temporary versus permanent nail avulsion. Recommend against temporary nail avulsion due to possibility of thickened toenail growing back. She has no infection currently and so I do not see the need for incision and drainage procedure. Discussed trimming the toenails short to reduce rubbing and impingement when wearing shoes and socks. Follow up as needed. If symptoms persist we could consider phenol matricectomy. This note was created with the assistance of a speech recognition program. While intending to generate a timely document that accurately reflects the content of the visit, no guarantee can be provided that every grammatical or spelling mistake has been or will be identified or corrected. Thank you for your understanding. Feliciano Chapa DPM documented in this encounter [facility] 09-10-2024 Telephone encounter Note Pt called again regarding message concerning discontinue of her cream [facility] 09-10-2024 Miscellaneous Notes Pt called again regarding message concerning discontinue of her cream documented in this encounter [facility] 09-05-2024 Telephone encounter Note Patient called in today stating the terbinafine cream you prescribed her yesterday is discontinued and she needs something else called in. Ty [facility] 09-05-2024 Miscellaneous Notes Patient called in today stating the terbinafine cream you prescribed her yesterday is discontinued and she needs something else called in. Ty documented in this encounter [facility] 09-04-2024 History of Present illness Narrative Subjective No chief complaint on file. Yefri Persaud is a 23 y.o. at 26w2d with a working estimated date of delivery of 12/09/2024, by Last Menstrual Period who presents for a routine visit. She denies vaginal bleeding, leakage of fluid, decreased movements, or contractions. OB History Para Term AB Living 1 0 0 0 0 0 SAB IAB Ectopic Multiple Live Births 0 0 0 0 0 # Outcome Date GA Lbr Meliton/2nd Weight Sex Type Anes PTL Lv 1 Current Her is complicated by: The following portions of the chart were reviewed this encounter and updated as appropriate: Objective Physical Exam weight: 139 lb Expected Total Weight Gain: 25 lb-35 lb Pregravid BMI: 24.22 BP: 118/80 Urine protein-negative Urine glucose-negative Labs: reviewed Imaging Assessment/Plan Patient has a rash between her legs on bilateral inner thighs in perfect ring shaped. Dry and itchy. Patient states its been there since April and not going away. Spots are about the size of a nickel and a few of them quarter size. There are about 5-6 of them noted bilaterally. She has been using OTC athletes foot cream. New Rx sent to pharmacy and if no help she can have a referral to dermatology. Continue vitamin. Labs reviewed. Rhogam GTT at 28 weeks Follow up in 2 weeks for glucose testing and then 4 weeks for a a routine visit. documented in this encounter [facility] 08-07-2024 History of Present illness Narrative Subjective No chief complaint on file. Yefri Persaud is a 23 y.o. at 22w2d with a working estimated date of delivery of 12/09/2024, by Last Menstrual Period who presents for a routine visit. She denies vaginal bleeding, leakage of fluid, decreased movements, or contractions. OB History Para Term AB Living 1 0 0 0 0 0 SAB IAB Ectopic Multiple Live Births 0 0 0 0 0 # Outcome Date GA Lbr Meliton/2nd Weight Sex Type Anes PTL Lv 1 Current Her is complicated by: epilepsy, saw MFM The following portions of the chart were reviewed this encounter and updated as appropriate: Objective Physical Exam weight: 138 lb Expected Total Weight Gain: 25 lb-35 lb Pregravid BMI: 24.22 BP: 118/74 Urine protein-negative Urine glucose-negative Labs: reviewed Imaging Assessment/Plan Diagnoses and all orders for this visit: Encounter for care of first , second trimester headache in second trimester Other epilepsy with status epilepticus, not intractable (CMS/HCC) Continue vitamin. Labs reviewed Rhogam not needed GTT at 28 weeks Follow up in 2 weeks for a routine visit. documented in this encounter [facility] 07-25-2024 Telephone encounter Note Patient called and wants to know if she can reschedule her appt to 24 weeks, instead of coming in on Tuesday. Please call her at [phone]. Ty [facility] 07-25-2024 Miscellaneous Notes Patient called and wants to know if she can reschedule her appt to 24 weeks, instead of coming in on Tuesday. Please call her at [phone]. Ty documented in this encounter [facility] 07-25-2024 History of Present illness Narrative Headache/epigastric pain/blurry vision/swelling? Headaches Cramping/contractions? No Abnormal vaginal discharge? No Spotting/vaginal bleeding? No Loss or gush of fluid like your water may have broken? No Do you have cats at home? No Do you change the litter box (reason: risk of toxoplasmosis)? N/a Genetic testing done this here or other office? not yet Have you been seen here at [facility] in a previous ? No Recent ER visits or hospitalizations? No Bring blood sugar log or meter with you today? (Please bring them with you for every visit at [facility]) n/a Flu vaccine (Aug-December)? No Any concerns that you would like me to mention to the provider today? Ast seizure about 5 years ago . REASON FOR CONSULTATION: Maternal seizure disorder. HISTORY OF PRESENT ILLNESS: Yefri Persaud is a pleasant 23 y.o. G one P0. at 20w3d due on Estimated Date of Delivery: 12/09/24 . Patient was seen today due to the following 1. Maternal seizure disorder since . Patient has febrile seizures along with generalized epilepsy. Patient has been seizure-free for past 5 years. Patient taking 2000 mg of Keppra every day. Currently the patient has no complaints. The patient denies nausea, vomiting, abdominal pain, vaginal bleeding, SOB or chest pain. Patient's PMH/PSH,SH,PSYCH Hx, MEDs, ALLERGIES, and ROS were all reviewed and updated in the appropriate sections. Patient Active Problem List Diagnosis Seizure disorder during ([facility]) Past Medical History: Diagnosis Date Eustachian tube dysfunction Seizures ([facility]) Visual impairment glasses PAST OBSTETRICAL HISTORY: OB History 1 Para Term AB Living SAB IAB Ectopic Multiple Live Births SURGICAL HISTORY: Past Surgical History: Procedure Laterality Date DENTAL SURGERY wisdom teeth EXCISION LESION LOWER EXTREMITY Left 02/06/2021 Performed by Feliciano Chapa DPM at [facility] TONSILLECTOMY ALLERGIES: Allergies Allergen Reactions Ketamine Strange behavior waking up, not sure if it was the Ketamine CURRENT MEDICATIONS: Current Outpatient Medications: folic acid (FOLVITE) 1 mg tablet, Take 1 tablet (1 mg total) by mouth in the morning., Disp: , Rfl: levETIRAcetam (KEPPRA) 250 mg tablet, Take 1 tablet (250 mg total) by mouth in the morning., Disp: , Rfl: ox023-fmfh-flsmo acid ( 19) 29 mg iron- 1 mg tablet,chewable, Chew 1 tablet and swallow in the morning., Disp: , Rfl: FAMILY/GENETIC HISTORY: No family history of VTE, cardiac defects and mental retardation . SOCIAL HISTORY:Patient denies tobacco use, alcohol use, or drug use. RECENT HOSPITALIZATION: none I did review all the labs results available in addition to labs which were ordered by the primary care physician, and the other consultants, we search on [employer] and all the available care everywhere epic I did review all the imaging studies of the patient available on EMR, ordered by the primary care physician and the other construction consultant HABITS: Patient activity no restrictions, diet no restrictions REVIEW OF SYSTEM: Head and Neck: Negative for any dizziness and headaches. Cardiovascular and Respiratory System: Denies any chest pain, shortness of breath, and coughing. Abdominal and System: Denies any abdominal pain, nausea, vomiting, vaginal bleeding, and vaginal discharge Social Determinants of Health Financial Resource Strain: n Food Insecurity: n Transportation Needs: n Physical Activity: y Social Connections: y Intimate Partner Violence: n Housing Stability: y PHYSICAL EXAMINATION: BP 132/77 Pulse 78 Ht 152.4 cm (5') Wt 59.5 kg (131 lb 3.2 oz) LMP 03/04/2024 BMI 25.62 kg/m . Gravid abdomen, Respirations not labored. Well oriented time place person, normal gait MEDICAL DECISION MAKING DISCUSSION: I informed the patient that she should continue her Keppra therapy for the remainder of the and . Serial Keppra levels every trimester need to be obtained to make sure the patient is in therapeutic levels. should be continue with serial growth ultrasounds every 4 weeks at her OB office. Term spontaneous vaginal delivery at [facility] is anticipated with C section reserve for routine obstetrical indications. Patient already has an established neurologist and therefore we will suggest that Keppra levels are drawn through her neurology office so that appropriate changes can be made at her local office. Patient understands that due to physiological changes in Keppra levels can be sub therapeutic. RECOMMENDATION: 1. Normal targeted anatomy seen on today's ultrasound. 2. Serial Keppra levels at least every trimester to be kept in therapeutic levels 3. Term spontaneous vaginal delivery at [facility] is anticipated with C section reserve for routine obstetrical indications. DISPOSITION: At this point the patient is in complete care of her measuring clerk. Patient does have ultrasound office visit scheduled with us. Thank you for allowing me to participate in Yefri Silvaroxanne . If there any questions please do not hesitate to contact us. Sincerely, BESS GONZALEZ MD [facility] Telephone encounter Note Patient called lvm @ 10:55am saying she had received a call last wk from Lana's nurse Jazmine saying she would be receiving a call from maternal medicine. Pt would like to know why she was referred to them and she has not received a call yet from maternal medicine yet. [facility] 07-10-2024 Miscellaneous Notes Patient called lvm @ 10:55am saying she had received a call last wk from Lana's nurse Jazmine saying she would be receiving a call from maternal medicine. Pt would like to know why she was referred to them and she has not received a call yet from maternal medicine yet. documented in this encounter [facility] 07-05-2024 Telephone encounter Note Pt left message questioning dosage of her medication, as well as saying the specialty pharmacy sent a request and they have yet to receive anything back from us. Please advise. [facility] 07-05-2024 Miscellaneous Notes Pt left message questioning dosage of her medication, as well as saying the specialty pharmacy sent a request and they have yet to receive anything back from us. Please advise. documented in this encounter [facility] 07-02-2024 History of Present illness Narrative Subjective No chief complaint on file. Yefri Persaud is a 23 y.o. at 17w1d with a working estimated date of delivery of 12/09/2024, by Last Menstrual Period who presents for a routine visit. She denies vaginal bleeding, leakage of fluid, decreased movements, or contractions. OB History Para Term AB Living 1 0 0 0 0 0 SAB IAB Ectopic Multiple Live Births 0 0 0 0 0 # Outcome Date GA Lbr Meliton/2nd Weight Sex Type Anes PTL Lv 1 Current Her is complicated by: epilepsy The following portions of the chart were reviewed this encounter and updated as appropriate: Objective Physical Exam weight: 127 lb Expected Total Weight Gain: 25 lb-35 lb Pregravid BMI: 24.22 BP: 120/70 Urine protein-negative Urine glucose-negative Labs: reviewed Imaging Assessment/Plan Diagnoses and all orders for this visit: Encounter for care of first , second trimester related condition in second trimester - US OB 14+ weeks anatomy scan; Future Continue vitamin. Labs reviewed. Rhogam not needed GTT at 28 weeks Will refer to M for consultation related to epilepsy/seizure disorder Follow up in 2 weeks for a routine visit. documented in this encounter [facility] 06-14-2024 History of Present illness Narrative Subjective No chief complaint on file. Yefri Persaud is a 23 y.o. at 14w4d with a working estimated date of delivery of 12/09/2024, by Last Menstrual Period who presents for a routine visit. She denies vaginal bleeding, leakage of fluid, decreased movements, or contractions. OB History Para Term AB Living 1 0 0 0 0 0 SAB IAB Ectopic Multiple Live Births 0 0 0 0 0 # Outcome Date GA Lbr Meliton/2nd Weight Sex Type Anes PTL Lv 1 Current Her is complicated by: headache x1 week. Pt states she doesn't typically get headaches. She has been taking tylenol and it dulls it. She has vomited a few times due to the pain The following portions of the chart were reviewed this encounter and updated as appropriate: Objective Physical Exam weight: 124 lb Expected Total Weight Gain: 25 lb-35 lb Pregravid BMI: 24.22 Urine protein-negative Urine glucose-negative Labs: reviewed Imaging Assessment/Plan Diagnoses and all orders for this visit: headache in second trimester - nnolrqwvko-rsuaxhcohfmyu-xsiejvg e 50-325-40 MG tablet; Take 1 tablet by mouth every 6 (six) hours if needed for headaches - ondansetron ODT (Zofran-ODT) 8 MG disintegrating tablet; Take 1 tablet (8 mg) by mouth every 8 (eight) hours if needed for nausea or vomiting Patient states she has had a headache for several days and has taken Tylenol and it does help but I don't like taking stuff while I'm . We did discuss what is safe in and that we like tylenol for headaches so we know if it relieves the headache. She calls them Migraines but she has never been diagnosed with migraines. She sees her neurologist for epilepsy and he did increase her medication during . She states she vomited 8 times this morning, but that she has no nausea. If the headaches continue with the vomiting I want her to follow up and get an appt with her neurologist. PVU We did discuss her headaches and vomiting and that in we like to treat the symptoms so she doesn't become dehydrated and lose weight. As of today patient has not lost any weight. Continue vitamin. Follow up in 2 weeks for a routine visit. documented in this encounter [facility] 06-14-2024 Telephone encounter Note Patient left a voicemail- she has had a consistent migraine x 1 week all day long. She is staying hydrated and eating well. Tylenol is not helping. She vomited 8 times this morning. She was tearful on the voicemail. Thank you. [facility] 06-14-2024 Miscellaneous Notes Patient left a voicemail- she has had a consistent migraine x 1 week all day long. She is staying hydrated and eating well. Tylenol is not helping. She vomited 8 times this morning. She was tearful on the voicemail. Thank you. documented in this encounter [facility] 06-04-2024 History of Present illness Narrative Subjective No chief complaint on file. Hung Persaud is a 23 y.o. at 13w1d with a working estimated date of delivery of 12/09/2024, by Last Menstrual Period who presents for a routine visit. She denies vaginal bleeding, leakage of fluid, decreased movements, or contractions. OB History Para Term AB Living 1 0 0 0 0 0 SAB IAB Ectopic Multiple Live Births 0 0 0 0 0 # Outcome Date GA Lbr Meliton/2nd Weight Sex Type Anes PTL Lv 1 Current Her is complicated by: epilepsy and seizure disorder The following portions of the chart were reviewed this encounter and updated as appropriate: Objective Physical Exam weight: 122 lb Expected Total Weight Gain: 25 lb-35 lb Pregravid BMI: 24.22 BP: 118/80 Urine protein Urine glucose Labs: reviewed Imaging Assessment/Plan Continue vitamin. Labs reviewed. Rhogam GTT . Follow up in 2 weeks for a routine visit. documented in this encounter [facility] 05-31-2024 Telephone encounter Note My MA called and spoke with patient and went over the safe meds list. Patient does not want anything for headaches at this time [facility] 05-31-2024 Miscellaneous Notes My MA called and spoke with patient and went over the safe meds list. Patient does not want anything for headaches at this time Pt cb to see if someone had read her my chart message. She still isnt feeling well and doesn't know what to do documented in this encounter [facility] 05-29-2024 Telephone encounter Note Pt cb to see if someone had read her my chart message. She still isnt feeling well and doesn't know what to do [facility] 05-03-2024 History of Present illness Narrative Subjective Yefri Persaud is a 23 y.o. at 8w4d with a working estimated date of delivery of 12/09/2024, by Last Menstrual Period who presents for an initial visit. This is planned. Patient Care Team: Johanne Meza MD as PCP - External PCP (Family Medicine) OB History Para Term AB Living 1 0 0 0 0 0 SAB IAB Ectopic Multiple Live Births 0 0 0 0 0 # Outcome Date GA Lbr Meliton/2nd Weight Sex Type Anes PTL Lv 1 Current Her is complicated by: epilepsy and seizure disorder Patient referred by Gynecology History Last Pap 12/27/23 The following portions of the chart were reviewed this encounter and updated as appropriate: Review of Systems Objective Physical Exam weight: 124 lb Expected Total Weight Gain: 25 lb-35 lb Pregravid BMI: 24.22 Urine protein-negative Urine glucose-negative Labs Assessment/Plan Diagnoses and all orders for this visit: Encounter for care of first , first trimester - Hepatitis B surface antigen - Rubella antibody, IgG - CBC - Antibody screen - RPR - Hemoglobin A1c - TSH W/REFLEX TO FT4; Future - HIV-1 and HIV-2 antibodies - ABO/Rh - DRUG TOX MONITORIGN 6 W/ CONF,URINE; Future - Hepatitis C antibody - Urine culture; Future - URINALYSIS MICROSCOPIC; Future - C. trachomatis / N. gonorrhoeae, DNA probe; Future Amenorrhea - POCT , urine - Hepatitis B surface antigen - Rubella antibody, IgG - CBC - Antibody screen - RPR - Hemoglobin A1c - TSH W/REFLEX TO FT4; Future - HIV-1 and HIV-2 antibodies - ABO/Rh - DRUG TOX MONITORIGN 6 W/ CONF,URINE; Future - Hepatitis C antibody - Urine culture; Future - URINALYSIS MICROSCOPIC; Future - C. trachomatis / N. gonorrhoeae, DNA probe; Future examination or test, positive result - Hepatitis B surface antigen - Rubella antibody, IgG - CBC - Antibody screen - RPR - Hemoglobin A1c - TSH W/REFLEX TO FT4; Future - HIV-1 and HIV-2 antibodies - ABO/Rh - DRUG TOX MONITORIGN 6 W/ CONF,URINE; Future - Hepatitis C antibody - Urine culture; Future - URINALYSIS MICROSCOPIC; Future - C. trachomatis / N. gonorrhoeae, DNA probe; Future Patient states she has a history of epilepsy and seizure disorder. She needs to have follow up with her neurologist and I will also refer her to [facility] for baseline consultation., Blue education folder given. Patient educated on safe medication list. Genetic testing information given. Discussed the do's and don'ts in the blue folder. We discussed labs and what we draw and what we are testing for. Patient is also informed that we do a urine drug test. Patient also given office phone number and [facility] number to call in case of an emergency or after hours needs. PVU and all questions answered. We did discuss place of delivery. Patient should plan to go to [facility] for all services unless an emergency and they need to go to the closest ER. We can make other arrangements possibly if patient would like to deliver at another facility but I did explain I am now at [place] 100% of the time and would like to do all deliveries there. documented in this encounter [facility] 11-18-2023 History of Present illness Narrative Subjective Yefri Persaud is a 23 y.o. female. HPI The patient is here for yearly follow up for epilepsy. The patient denies any seizure activity. Last one almost 4 years ago. BP 122/78 (BP Location: Left arm) Pulse 68 Ht 5' Wt 127 lb LMP 10/26/2023 (Exact Date) BMI 24.80 kg/m Allergies Allergen Reactions Ketamine Seizures Current Outpatient Medications: folic acid (Folvite) 1 MG tablet, Take 1,000 mcg by mouth in the morning., Disp: , Rfl: levETIRAcetam XR (Keppra XR) 500 MG 24 hr tablet, Take 4 tablets (2,000 mg) by mouth at bedtime., Disp: 120 tablet, Rfl: 11 Past Medical History: Diagnosis Date Epilepsy (CMS/HCC) ETD (eustachian tube dysfunction) History of being hospitalized 2009 Strep Seizure disorder (CMS/HCC) Past Surgical History: Procedure Laterality Date MOUTH SURGERY 08/2020 [place] teeth implant OTHER SURGICAL HISTORY 2002 Pyloric stenosis TONSILECTOMY, ADENOIDECTOMY, BILATERAL MYRINGOTOMY AND TUBES BMT and r/o retained L tube 06/21/2006; Tonsillectomy 11/18/2009 Family History Problem Relation Name Age of Onset Hypertension Father Breast cancer Maternal Grandmother Hypertension Maternal Grandfather ALS Paternal Grandfather reports that she has never smoked. She has never used smokeless tobacco. She reports that she does not drink alcohol and does not use drugs. Review of Systems Constitutional: Negative for chills, diaphoresis, fatigue and fever. HENT: Negative for ear pain, tinnitus and trouble swallowing. Eyes: Negative for photophobia and visual disturbance. Respiratory: Negative for cough and shortness of breath. Cardiovascular: Negative for palpitations and leg swelling. Gastrointestinal: Negative for abdominal pain and nausea. Genitourinary: Negative for difficulty urinating and urgency. Musculoskeletal: Negative for arthralgias, back pain, myalgias, neck pain and neck stiffness. Neurological: Negative for tremors, weakness, light-headedness and numbness. Psychiatric/Behavioral: Negative for agitation, confusion and suicidal ideas. Objective Neurological Exam Mental Status Awake, alert and oriented to person, place and time. Oriented to person, place and time. Recent and remote memory are intact. Speech is normal. Language is fluent with no aphasia. Attention and concentration are normal. Cranial Nerves CN II: Visual acuity is normal. Visual hernández full to confrontation. CN III, IV, : Extraocular movements intact bilaterally. Normal lids and orbits bilaterally. Pupils equal round and reactive to light bilaterally. CN V: Facial sensation is normal. CN VII: Full and symmetric facial movement. CN VIII: Hearing is normal. CN XII: Tongue midline without atrophy or fasciculations. Motor Normal muscle bulk throughout. Normal muscle tone. Right Left Wrist flexion 5 5 Wrist extension 5 5 Right Left Deltoid 5 5 Biceps 5 5 Triceps 5 5 Wrist flexor 5 5 Wrist extensor 5 5 Glutei 5 5 Iliopsoas 5 5 Quadriceps 5 5 Gastrocnemius 5 5 Anterior tibialis 5 5 Posterior tibialis 5 5 Sensory Light touch is normal in upper and lower extremities. Pinprick is normal in upper and lower extremities. Vibration is normal in upper and lower extremities. Reflexes Right Left Brachioradialis 2+ 2+ Biceps 2+ 2+ Patellar 2+ 2+ Achilles 2+ 2+ Right Plantar: downgoing Left Plantar: downgoing Right pathological reflexes: Paolo's absent. Ankle clonus absent. Left pathological reflexes: Paolo's absent. Ankle clonus absent. Coordination Rzahdr-ml-poda, rapid alternating movements and xeht-mx-aeyl normal bilaterally without dysmetria. Gait Normal casual, toe, heel and tandem gait. Romberg is absent. 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 year old female who presents with episodes of altered levels of consciousness possibly due to seizure, syncope or cerebral hypoperfusion secondary to intracranial or extracranial stenosis. I will obtain an EEG to assess for seizure or epileptiform activity which may explain the patient episodes and symptoms. documented in this encounter [facility] 06-23-2022 Miscellaneous Notes Lab order mailed. Liz Mckeon RN General call : Full name of person calling: Nehal Xiong Relationship to patient: mom Phone # : [phone] Reason for call: Please mail another copy of lab order to family. Mom has not received it. Patient of Dr. Bryant documented in this encounter [facility] 06-07-2022 Note HNO ID: [id number] Author: Hiwot Bryant MD Service: ? Author Type: Physician Type: Progress Notes Filed: 06/07/2022 1:42 PM Note Text: Neurological Echo, Epilepsy Center Pediatric Epilepsy Date of Service: 06/07/2022 EPILEPSY CENTER - RETURN VISIT Last Epilepsy Visit: 04/30/2021 AGE: Yefri is now 21 year old. The patient was accompanied during the visit by the: mother We had a visit using: Hittahem I received consent from the patient/parent/guardian to perform the visit using this platform. REASON(S) FOR VISIT: Follow up HISTORY AND CLINICAL COURSE Handedness: right-handed Age at onset of symptoms / seizures: 10 months EPILEPSY CLASSIFICATION: Febrile seizures and generalized epilepsy SEIZURES: Generalized motor seizures MRI: Normal ETIOLOGY: Presumed genetic EEG: Normal ASSOCIATED CONDITIONS: Positive family history for febrile (not afebrile) seizures (mother and sister). Weight by report: 54 kg Yefri has generalized epilepsy as well as history of febrile seizures (onset at 10 months of age). She has a positive family history for febrile (not afebrile) seizures (mother and sister). EEGs were normal in 2004, 2005, and 2013. Levetiracetam was started at 7 years of age (2007), and at 11 years of age (2011), after 4 years with no seizures, the medication was discontinued. After another seizure-free interval, she had 2 brief nocturnal generalized tonic clonic seizures in 09/2013 and 04/2014. Levetiracetam was restarted with no further seizures for 2.5 years. At 16 years of age (10/2016), Yefri had a brief generalized tonic clonic seizure while awake, after missing a day's dose of levetiracetam XR 750 mg/d (36 hours after the previous nightly dose). Medication was restarted at 1000 mg/d with an adherence plan in place. At 19 years of age (12/2019), Yefri had a brief generalized tonic seizure during a febrile illness. Levetiracetam level on the day of the seizure was 19.1 mg/l (usual range 12-45 mg/l) on 1000 mg/d. Dose was increased to 1500 mg/d. IN SUMMARY Yefri has generalized epilepsy as well as history of febrile seizures (onset at 10 months of age). She has a positive family history for febrile (not afebrile) seizures (mother and sister). EEGs were normal in 2004, 2005, and 2013. Yefri has had no seizures since 12/2019 on levetiracetam 1500 mg/d - but level on this dose in 05/2021 was lower - 13.6 mg/l (usual range 12-45 mg/l) - than at the time of the prior seizure on a lower dose (1000 mg/d). Dose was increased to 2000 mg/d with appropriate level (20.9 mg/l) in 06/2021. I recommend to continue the current regimen with good adherence. Maintaining a protective serum level will be important for maintaining driving privileges. REVIEW OF SYSTEMS: The patient / family did not report additional concerns. There were no symptoms suggestive of cardiac, gastrointestinal, or endocrinal dysfunction. No abnormal skin findings. No symptoms suggestive of respiratory, genitourinary or musculoskeletal dysfunction. SEIZURE / EPISODE TYPE(S) Seizure Type 1 Generalized motor seizures Description: She falls, shakes all over for about 20 seconds to 2 minutes, and then sleeps, with no memory for ictal events ASSOCIATED CONDITIONS, DEVELOPMENTAL HISTORY, AND SCHOOL She is on the honor roll in school. She enjoys track and band (flute). She is considering a career in occupational therapy. ANTISEIZURE THERAPIES CURRENT ANTISEIZURE THERAPIES - Levetiracetam 2000 mg/d (XR, once a day in pm) - level 20.9 mg/l in 06/2021 (usual range 12-45 mg/l) Also takes - Folic acid ANTISEIZURE MEDICATION LEVELS (LAST 3) Antiseizure Med Levels Latest Ref Rng AND Units 12/01/2016 LEVETIRACETAM 5.0 - 45.0 ug/mL 22.6 PRIOR/CURRENT ANTISEIZURE THERAPIES Levetiracetam ALLERGIES Allergen Reactions Gluten Other: See Comments Headaches PATIENT-ENTERED DATA: No Data Recorded No flowsheet data found. PREVIOUS EPILEPSY EVALUATIONS: MRI - performed at 4 or 5 years of age Normal per mother EEGs 2004, 2005, 2013 Normal Objective PHYSICAL EXAMINATION The examination during the virtual visit was observational. The following features were noted. GENERAL EXAMINATION: Yefri was alert and in no apparent distress. Respiration was regular and unlabored. NEUROLOGICAL EXAMINATION: Mental status: Alert and interactive, conversational, friendly, and cooperative Cranial nerves: Eye movements appear full and no facial asymmetry Motor: Movements of all four limbs appear symmetrical. Cerebellar: No nystagmus, dysmetria, or tremor IMPRESSION Yefri has generalized epilepsy as well as history of febrile seizures (onset at 10 months of age). She has a positive family history for febrile (not afebrile) seizures (mother and sister). EEGs were normal in 2004, 2005, and 2013. Yefri has had no seizures since 12/2019 on levetiracetam 1500 mg/d - but level on this dose in 05/2021 (more content not included)... [facility] 06-07-2022 History of Present illness Narrative Images from the original note were not included. Neurological Echo, Epilepsy Center Pediatric Epilepsy Date of Service: 06/07/2022 EPILEPSY CENTER - RETURN VISIT Last Epilepsy Visit: 04/30/2021 AGE: Yefri is now 21 year old. The patient was accompanied during the visit by the: mother We had a visit using: Hittahem I received consent from the patient/parent/guardian to perform the visit using this platform. REASON(S) FOR VISIT: Follow up HISTORY AND CLINICAL COURSE Handedness: right-handed Age at onset of symptoms / seizures: 10 months EPILEPSY CLASSIFICATION: Febrile seizures and generalized epilepsy SEIZURES: Generalized motor seizures MRI: Normal ETIOLOGY: Presumed genetic EEG: Normal ASSOCIATED CONDITIONS: Positive family history for febrile (not afebrile) seizures (mother and sister). Weight by report: 54 kg Yefri has generalized epilepsy as well as history of febrile seizures (onset at 10 months of age). She has a positive family history for febrile (not afebrile) seizures (mother and sister). EEGs were normal in 2004, 2005, and 2013. Levetiracetam was started at 7 years of age (2007), and at 11 years of age (2011), after 4 years with no seizures, the medication was discontinued. After another seizure-free interval, she had 2 brief nocturnal generalized tonic clonic seizures in 09/2013 and 04/2014. Levetiracetam was restarted with no further seizures for 2.5 years. At 16 years of age (10/2016), Yefri had a brief generalized tonic clonic seizure while awake, after missing a day's dose of levetiracetam XR 750 mg/d (36 hours after the previous nightly dose). Medication was restarted at 1000 mg/d with an adherence plan in place. At 19 years of age (12/2019), Yefri had a brief generalized tonic seizure during a febrile illness. Levetiracetam level on the day of the seizure was 19.1 mg/l (usual range 12-45 mg/l) on 1000 mg/d. Dose was increased to 1500 mg/d. IN SUMMARY Yefri has generalized epilepsy as well as history of febrile seizures (onset at 10 months of age). She has a positive family history for febrile (not afebrile) seizures (mother and sister). EEGs were normal in 2004, 2005, and 2013. Yefri has had no seizures since 12/2019 on levetiracetam 1500 mg/d - but level on this dose in 05/2021 was lower - 13.6 mg/l (usual range 12-45 mg/l) - than at the time of the prior seizure on a lower dose (1000 mg/d). Dose was increased to 2000 mg/d with appropriate level (20.9 mg/l) in 06/2021. I recommend to continue the current regimen with good adherence. Maintaining a protective serum level will be important for maintaining driving privileges. REVIEW OF SYSTEMS: The patient / family did not report additional concerns. There were no symptoms suggestive of cardiac, gastrointestinal, or endocrinal dysfunction. No abnormal skin findings. No symptoms suggestive of respiratory, genitourinary or musculoskeletal dysfunction. SEIZURE / EPISODE TYPE(S) Seizure Type 1 Generalized motor seizures Description: She falls, shakes all over for about 20 seconds to 2 minutes, and then sleeps, with no memory for ictal events ASSOCIATED CONDITIONS, DEVELOPMENTAL HISTORY, AND SCHOOL She is on the [employer] roll in school. She enjoys track and [employer] She is considering a career in occupational therapy. ANTISEIZURE THERAPIES CURRENT ANTISEIZURE THERAPIES - Levetiracetam 2000 mg/d (XR, once a day in pm) - level 20.9 mg/l in 06/2021 (usual range 12-45 mg/l) Also takes - Folic acid ANTISEIZURE MEDICATION LEVELS (LAST 3) Antiseizure Med Levels Latest Ref Rng & Units 12/01/2016 LEVETIRACETAM 5.0 - 45.0 ug/mL 22.6 PRIOR/CURRENT ANTISEIZURE THERAPIES Levetiracetam ALLERGIES Allergen Reactions Gluten Other: See Comments Headaches PATIENT-ENTERED DATA: No Data Recorded No flowsheet data found. PREVIOUS EPILEPSY EVALUATIONS: MRI - performed at 4 or 5 years of age Normal per mother EEGs 2004, 2005, 2013 Normal Objective PHYSICAL EXAMINATION The examination during the virtual visit was observational. The following features were noted. GENERAL EXAMINATION: Yefri was alert and in no apparent distress. Respiration was regular and unlabored. NEUROLOGICAL EXAMINATION: Mental status: Alert and interactive, conversational, friendly, and cooperative Cranial nerves: Eye movements appear full and no facial asymmetry Motor: Movements of all four limbs appear symmetrical. Cerebellar: No nystagmus, dysmetria, or tremor IMPRESSION Yefri has generalized epilepsy as well as history of febrile seizures (onset at 10 months of age). She has a positive family history for febrile (not afebrile) seizures (mother and sister). EEGs were normal in 2004, 2005, and 2013. Yefri has had no seizures since 12/2019 on levetiracetam 1500 mg/d - but level on this dose in 05/2021 was lower - 13.6 mg/l (usual range 12-45 mg/l) - than at the time of the prior seizure on a lower dose (1000 mg/d). Dose was increased to 2000 mg/d with appropriate level (20.9 mg/l) in 06/2021. I recommend to continue the current regimen with good adherence. Maintaining a protective serum level will be important for maintaining driving privileges. RECOMMENDATIONS - Continue the current dose of levetiracetam with good adherence - Main continue with driving privileges - Yearly follow up The possible risks, benefits, and alternatives to this plan were discussed. I again went over general epilepsy education points and seizure precautions with the family. Ongoing virtual visits are recommended for this patient, as travel is not advisable due to the COVID-19 pandemic. I spent a total of 25 minutes on the date of the service which included preparing to see the patient, [id number] patient care, completing clinical documentation, counseling and educating the patient/family/caregiver, and ordering medications, tests, or procedures. Hiwot Bryant M.D. Professor of Neurology, [facility] Staff Physician, [facility] Epilepsy Center Neurological Echo [place] [id number] CC: Neurological Echo Referring Team Johanne Meza MD Referring Team, [facility] [phone] [id number] [facility] [id number] Johanne Meza ([facility]) [address] [place] [address] The family of: Yefri Xiong [address] [facility] [address] documented in this encounter [facility] 05-06-2022 Miscellaneous Notes The following approved medication requests have been transmitted electronically. Pending Prescriptions: Disp Refills levETIRAcetam XR (KEPPRA XR) 500 mg 24 hr 360 tablet0 tablet Sig: Take (4) tablets by mouth once daily at bedtime (=2000mg/day). JEROD: No Hiwot Bryant MD Date of service: May 06, 2022 Yefri Xiong is a 21 year old. Last seen by Dr. Bryant on 04/2021 Now requesting levetiracetam refill -Prescription appropriate, please file and document electronically. Thank you. -Routed to Dr. Annette Mckeon RN Prescription Refill: Requested by: pharmacy Please Fax Caller Contact Number: [phone] (home) [facility] Pharmacy Number: [id number] Generic/ brand: generic 30 or 90 day supply requested: 90 Last appointment: 04/30/21 Next Appointment: none Patient of Dr. miller documented in this encounter [facility] 07-15-2021 Note HNO ID: [id number] Author: Hiwot Bryant MD Service: ? Author Type: Physician Type: Progress Notes Filed: 07/15/2021 4:28 PM Note Text: Neurological Echo, Epilepsy Center Pediatric Epilepsy Date of Service: 07/15/2021 EPILEPSY CENTER - CLINICAL UPDATE Last Epilepsy Visit: 04/30/2021 AGE: Yefri is now 20 year old. HISTORY AND CLINICAL COURSE Handedness: right-handed Age at onset of symptoms / seizures: 10 months EPILEPSY CLASSIFICATION: Febrile seizures and generalized epilepsy SEIZURES: Generalized motor seizures MRI: Normal ETIOLOGY: Presumed genetic EEG: Normal ASSOCIATED CONDITIONS: Positive family history for febrile (not afebrile) seizures (mother and sister). Weight by report: 46.7 kg in 10/2019 Yefri has generalized epilepsy as well as history of febrile seizures (onset at 10 months of age). She has a positive family history for febrile (not afebrile) seizures (mother and sister). EEGs were normal in 2004, 2005, and 2013. ? Levetiracetam was started at 7 years of age (2007), and at 11 years of age (2011), after 4 years with no seizures, the medication was discontinued. ? After another seizure-free interval, she had 2 brief nocturnal generalized tonic clonic seizures in 09/2013 and 04/2014. Levetiracetam was restarted with no further seizures for 2.5 years. ? At 16 years of age (10/2016), Yefri had a brief generalized tonic clonic seizure while awake, after missing a day's dose of levetiracetam XR 750 mg/d (36 hours after the previous nightly dose). Medication was restarted at 1000 mg/d with an adherence plan in place. ? At 19 years of age (12/2019), Yefri had a brief generalized tonic seizure during a febrile illness. Levetiracetam level on the day of the seizure was 19.1 mg/l (usual range 12-45 mg/l) on 1000 mg/d. Dose was increased to 1500 mg/d. IN SUMMARY - Three previous EEGs and an MRI were normal. She has a strongly positive family history for febrile seizures. Yefri's most recent generalized tonic clonic seizure was at 19 years of age. INTERVAL HISTORY Yefri has had no seizures since 12/2019 on levetiracetam 1500 mg/d - but level on this dose in 05/2021 was lower - 13.6 mg/l (usual range 12-45 mg/l) - than at the time of the prior seizure on a lower dose (1000 mg/d). Dose was increased to 2000 mg/d with appropriate level (20.9 mg/l) in 06/2021. I recommend to continue the current regimen with good adherence. Maintaining a protective serum level will be important for driving privileges. SEIZURE / EPISODE TYPE(S) Seizure Type 1 Generalized motor seizures Description: She falls, shakes all over for about 20 seconds to 2 minutes, and then sleeps, with no memory for ictal events ASSOCIATED CONDITIONS, DEVELOPMENTAL HISTORY, AND SCHOOL She is on the honor roll in school. She enjoys track and band (flute). She is considering a career in occupational therapy. ANTISEIZURE THERAPIES CURRENT ANTISEIZURE THERAPIES - Levetiracetam 2000 mg/d (XR, once a day in pm) - level 20.9 mg/l in 06/2021 (usual range 12-45 mg/l) Also takes - Folic acid ANTISEIZURE MEDICATION LEVELS (LAST 3) Antiseizure Med Levels Latest Ref Rng AND Units 12/01/2016 LEVETIRACETAM 5.0 - 45.0 ug/mL 22.6 PRIOR/CURRENT ANTISEIZURE THERAPIES Levetiracetam ALLERGIES Allergen Reactions - Gluten Other: See Comments Headaches PREVIOUS EPILEPSY EVALUATIONS: MRI - performed at 4 or 5 years of age Normal per mother ? EEGs 2004, 2005, 2013 Normal IMPRESSION Yefri has had no seizures since 12/2019 on levetiracetam 1500 mg/d - but level on this dose in 05/2021 was lower - 13.6 mg/l (usual range 12-45 mg/l) - than at the time of the prior seizure on a lower dose (1000 mg/d). Dose was increased to 2000 mg/d with appropriate level (20.9 mg/l) in 06/2021. I recommend to continue the current regimen with good adherence. Maintaining a protective serum level will be important for driving privileges. RECOMMENDATIONS - Continue the current dose of levetiracetam with good adherence - Main continue with driving privileges - Yearly follow up Ongoing virtual visits are recommended for this patient, as travel is not advisable due to the COVID-19 pandemic. Hiwot Bryant M.D. 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 Diagnosis 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 Generalized convulsive 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 [facility] Diagnosis 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)- Primary [facility] Diagnosis Seizure disorder during in second trimester (CMS-HCC)- Primary [facility]* Diagnosis Encounter for care of first , second trimester- Primary headache in second trimester Other epilepsy with status epilepticus, not intractable (CMS/HCC) [facility]* Diagnosis Skin rash- Primary Rash and other nonspecific skin eruption Screening for diabetes mellitus (DM) Screening for diabetes mellitus Screening for iron deficiency anemia related condition in third trimester documented [facility]* Diagnosis Encounter for care of first , first trimester- Primary [facility]* Diagnosis Ingrown toenail- Primary Ingrowing nail Left foot pain Pain in soft tissues of limb [facility]* Diagnosis Encounter for care of first , first trimester- Primary Amenorrhea Absence of menstruation examination or test, positive result Other epilepsy with status epilepticus, not intractable (CMS/HCC) [facility]* Diagnosis headache in second trimester- Primary Excessive vomiting in [facility]* Diagnosis Encounter for care of first , second trimester- Primary related condition in second trimester [facility]* Diagnosis Seizure disorder (CMS/HCC) Unspecified 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 [facility]* Diagnosis Seizure disorder (CMS/HCC) Unspecified 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 [facility]* Diagnosis Seizure disorder (CMS/HCC) Unspecified 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 [facility]* Diagnosis Encounter for care of first , third trimester- Primary Other epilepsy with status epilepticus, not intractable (CMS/HCC) documented in this encounter [facility]ructionsNot on filedocumented in this encounterPro[facility]ica [facility] SystemInstructionsNot on filedocumented in this encounterProMedica Health SystemInstructionsNot on filedocumented in this encounterProMedica Health System Summary Purpose Family History No Family History Records FoundNo Family History Records FoundNo Family History Records FoundNo Family History Records FoundNo Family History Records Found Advance Directives No Advanced Directives Records FoundNo Advanced Directives Records FoundNo Advanced Directives Records FoundNo Advanced Directives Records FoundNo Advanced Directives Records Found Reason for Referral Specialty Diagnoses / Procedures Referred By Peter roberts Referred To Contact Obstetrics and Gynecology Diagnoses Encounter for care of first , first trimester Procedures [place] OFFICE/OUTPATIENT NEW HIGH MDM 60 MINUTES Chelo Briscoe CNM [address] [place] [address] Chelo Briscoe CNM [address] [place] [address] Referral ID Status Reason Start Date Expiration Date Visits Requested Visits Authorized [id number] Pending Review Specialty Services Required 05/29/2024 11/25/2024 1 1 Additional Source Comments INFORMATION SOURCE (unrecogn ized section and content) DATE CREATED AUTHOR 09/18/2021 [facility] dical Specialist DATE CREATED AUTHOR AUTHOR'S ORGANIZ ATION 07/07/2022 [facility] DATE CREATED AUTHOR AUTHOR'S ORGANIZ ATION 12/22/2023 [facility] DATE CREATED AUTHOR AUTHOR'S ORGANIZ ATION 07/27/2024 [facility] DATE CREATED AUTHOR AUTHOR'S ORGANIZ ATION 10/19/2024 [facility] dical Specialists EPIC Source Comments (unrecognize d section and content) In the event this informatio n is protected by the Federal Confidentiality of Alcohol and Drug Abuse Patient Records regulations: The Federal rules restrict any use of the information to criminally investigate or prosecute any alcohol or drug abuse patient.[facility] the event this information is protected by the Federal Confidentiality of Alcohol and Drug Abuse Patient Records regulations: The Federal rules restrict any use of the information to criminally investigate or prosecute any alcohol or drug abuse patient.[facility] Center[facility] the event this information is protected by the Federal Confidentiality of Alcohol and Drug Abuse Patient Records regulations: The Federal rules restrict any use of the information to criminally investigate or prosecute any alcohol or drug abuse patient.[facility] Reason for Visit (unrecogniz ed section and content) Reason Onset Date Comments Refill Request 05/05/2022 Reason Comments Follow Up Reason Comments Other Please mail another copy of lab order to family. Reason Comments Seizures Reason Comments Med Refill Reason Comments stable seizure disordor . Reason Comments Ingrown Toenail 23 yo OP presents to day with possible ingrown on left 3rd digit, pt states she thinks all her nails are ingrown and would like looked over, pt denies infection. Reason Comments New Med Request Reason Onset Date Comments Med Refill 07/06/2024 Care Teams (unrecognized sec tion and content) Subassembly Assembler Relationship Specialty Start Date End Date Johanne Meza MD [address] [place] [address] PCP - General Family Practice 04/29/14 Johanne Meza MD [address] [place] [address] [place] Referring Team Family Practice 04/29/21 Subassembly Assembler Relationship Specialty Start Date End Date Johanne Meza MD [address] [place] [address] PCP - General Family Practice 04/29/14 Johanne Meza MD [address] [place] [address] NI Referring Team Family Practice 04/29/21 Subassembly Assembler Relationship Specialty Start Date End Date Johanne Meza MD [address] [place] [address] PCP - General Family Practice 04/29/14 Johanne Meza MD [address] [place] [address] NI Referring Team Family Practice 04/29/21 Subassembly Assembler Relationship Specialty Start Date End Date Johanne Meza MD [address] [place] [address] PCP - External PCP Family Medicine 03/19/23 Subassembly Assembler Relationship Specialty Start Date End Date Johanne Meza MD [address] [place] [address] PCP - External PCP Family Medicine 03/19/23 Subassembly Assembler Relationship Specialty Start Date End Date Johanne Meza MD [address] [place] [address] PCP - General Family Medicine 10/21/17 Subassembly Assembler Relationship Specialty Start Date End Date Johanne Meza MD [address] [place] [address] PCP - External PCP Family Medicine 03/19/23 Subassembly Assembler Relationship Specialty Start Date End Date Johanne Meza MD [address] [place] [address] PCP - General Family Medicine 10/21/17 Subassembly Assembler Relationship Specialty Start Date End Date Johanne Meza MD [address] [place] [address] PCP - General Family Medicine 10/21/17 Subassembly Assembler Relationship Specialty Start Date End Date Johanne Meza MD [address] [place] [address] PCP - External PCP Family Medicine 03/19/23 Subassembly Assembler Relationship Specialty Start Date End Date Johanne Meza MD [address] [place] [address] PCP - External PCP Family Medicine 03/19/23 Subassembly Assembler Relationship Specialty Start Date End Date Johanne Meza MD [address] [place] [address] PCP - External PCP Family Medicine 03/19/23 Subassembly Assembler Relationship Specialty Start Date End Date Johanne Meza MD [address] [place] [address] PCP - External PCP Family Medicine 03/19/23 Subassembly Assembler Relationship Specialty Start Date End Date Johanne Meza MD [address] [place] [address] PCP - External PCP Family Medicine 03/19/23 Subassembly Assembler Relationship Specialty Start Date End Date Johanne Meza MD [address] [place] [address] PCP - External PCP Family Medicine 03/19/23 Subassembly Assembler Relationship Specialty Start Date End Date Johanne Meza MD [address] [place] [address] PCP - External PCP Family Medicine 03/19/23 Subassembly Assembler Relationship Specialty Start Date End Date Johanne Meza MD [address] [place] [address] PCP - External PCP Family Medicine 03/19/23 Subassembly Assembler Relationship Specialty Start Date End Date Johanne Meza MD [address] [place] [address] PCP - External PCP Family Medicine 03/19/23 Subassembly Assembler Relationship Specialty Start Date End Date Johanne Meza MD [address] [place] [address] PCP - External PCP Family Medicine 03/19/23 Subassembly Assembler Relationship Specialty Start Date End Date Johanne Meza MD [address] [place] [phone] PCP - External PCP Family Medicine 03/19/23 Subassembly Assembler Relationship Specialty Start Date End Date Johanne Meza MD [address] [place] [address] PCP - External PCP Family Medicine 03/19/23 FOR RECORDS PERTAINING TO PATIENTS WHO ARE OR HAVE BEEN ENROLLED IN A CHEMICAL DEPENDENCY/SUBSTANCEABUSE PROGRAM, SOME INFORMATION MAY BE OMITTED. This clinical summary was aggregated from multiple sources. Caution should be exercised in using it in the provision of clinical care. This summary normalizes information from multiple sources, and as a consequence, information in this document may materially change the coding, format and clinical context of patient data. In addition, data may be omitted in some cases. CLINICAL DECISIONS SHOULD BE BASED ON THE PRIMARY CLINICAL RECORDS. [facility] [employer] provides no warranty or guarantee of the accuracy or completeness of information in this document.
--- NOTE | 2024-10-25 11:28 | ECG_ITS ---
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
--- NOTE | 2024-10-25 11:31 | US_ITS ---
[address] [address] Patient Name: YEFRI CURRAN MRN: [id number] date: 2000 Sex: F Assigned Patient Location: [facility] Current Patient Location: [facility] Accession/Order Number: [id number] Exam Date: 10/25/2024 12:15 Report Date: 10/25/2024 12:52 At the request of: JULIO CÉSAR PRAKASH Procedure: US OB BPP w non-stress EXAMINATION: US OB BPP w non-stress HISTORY: maternal tachycardia COMPARISON: No relevant comparison available. TECHNIQUE: Ultrasound biophysical profile was performed in the radiology department. non-reactive stress testing was performed by nursing staff in the birthing center. FINDINGS: BREATHING MOVEMENTS: 2 GROSS BODY MOVEMENTS: 2 TONE: 2 QUALITATIVE AMNIOTIC FLUID VOLUME: 2 PRESENTATION: CEPHALIC HEART RATE: 137.06 bpm AMNIOTIC FLUID VOLUME: 11.7 cm GESTATIONAL AGE: 33w4d US/US OB BPP w non-stress IMPRESSION: Total biophysical profile score: 8 Electronically authenticated by: OBINNA PARRISH Date: 10/25/2024 12:52
--- NOTE | 2024-10-25 11:33 | US_ITS ---
[address] [address] Patient Name: YEFRI CURRAN MRN: [id number] date: 2000 Sex: F Assigned Patient Location: [facility] Current Patient Location: [facility] Accession/Order Number: [id number] Exam Date: 10/25/2024 12:15 Report Date: 10/25/2024 12:58 At the request of: JULIO CÉSAR PRAKASH Procedure: US OB growth EXAMINATION: US OB growth HISTORY: repeat for BPD in 3rd percentile on 10/04/24 COMPARISON: 10/01/2024 FINDINGS: Heart Rate: 137.06 bpm Amniotic Fluid Volume: 11.7 cm, largest fluid pocket 4.4 cm Number: 1 Position: Cephalic presentation, longitudinal lie BIOMETRY: BPD: 7.89 cm; 31w5d; 5.30 % HC: 30.17 cm; 33w3d; 13.90 % AC: 28.76 cm; 32w5d; 28.90 % FL: 6.09 cm; 31w4d; 4.80 % EFW: 1969.24 g; 13.90 %, 4lb 5 oz FL/AC: 21.19 FL/BPD: 77.20 HC/AC: 1.05 GESTATIONAL AGE: Age by EDC: 33w4d MIHIR by EDC: 2024-12-09 Age by US: 32w3d MIHIR by US: 2024-12-17 US/US OB growth IMPRESSION: BPD and femur length at the 5th percentile Electronically authenticated by: OBINNA PARRISH Date: 10/25/2024 12:58
[2024-10-25 11:56] LABS: Basophils Percent Auto 0.3 % (0.2-2.0); Eosinophils Absolute Auto 0.1 10^3/uL (0.0-0.7); Eosinophils Percent Auto 0.5 % (0.9-7.0); Hematocrit 31.3 % (36.0-48.0); Hemoglobin 10.9 g/dL (12.0-16.0); Immature Granulocytes Abs Auto 0.06 10^3/uL (0.00-0.03); Immature Granulocytes Pct Auto 0.6 % (0.0-0.5); Lymphocytes Absolute Auto 1.5 10^3/uL (1.2-3.8); Lymphocytes Percent Auto 16.1 % (20.5-60.0); Mean Corpuscular HGB Conc 34.8 g/dL (29.9-35.2); Mean Corpuscular Hemoglobin 30.8 pg (26.7-34.0); Mean Corpuscular Volume 88.4 fL (81.0-99.0); Mean Platelet Volume 10.2 fL (9.5-13.5); Monocytes Absolute Auto 1.1 10^3/uL (0.3-0.8); Monocytes Percent Auto 11.2 % (1.7-12.0); Neutrophils Absolute Auto 6.8 10^3/uL (1.4-6.5); Neutrophils Percent Auto 71.3 % (43.0-75.0); Platelet Count 220 10^3/uL (150-450); Red Blood Count 3.54 10^6/uL (4.20-5.40); Red Cell Distribution Width 12.1 % (11.0-15.0); White Blood Count 9.6 10^3/uL (4.0-11.0)
[2024-10-25 12:04] LABS: Creatinine Urine Random 38.81 mg/dL (20.00-300.00); Protein Creatinine Ratio Urine 0.17; Total Protein Urine Random 6.5 mg/dL (<=11.9)
[2024-10-25 12:06] LABS: Alanine Aminotransferase 19 U/L (14-59); Aspartate Amino Transferase 13 U/L (15-37); Estimated GFR (African America >60 (>=60 mL/min/1.73m^2); Estimated GFR (Non-African Ame >60 (>=60 mL/min/1.73m^2); Uric Acid 3.8 mg/dL (2.6-6.0)
--- NOTE | 2024-10-25 12:12 | PC.NURSE ---
1050 pt presents from office to dept. Lana Briscoe CNM called over with pt hx prior. At office today had a spell of feeling lightheaded and having palpitations, shortness of breath and heart racing. bps in office were 140/90,160/100, and 140/84. Pt states feels better now but still a little chest pounding and a headache. States this has been happening throughout but more often and severe in third trimester. Appears pink with no resp distress, lungs clear, heart sounds s1 and s2. No swelling noted, reflexes 2+ upper and lower, denies visual disturbances or epigastric pain. Obtains urine sample and then into bed where EFM is applied. Resp rate 18, no acute distress noted.
[2024-10-25 12:24] LABS: Prothrombin Time 9.7 sec (9.0-11.6)
[2024-10-25 12:25] LABS: Fibrinogen 387 mg/dL (200-400); INR <0.93
--- NOTE | 2024-10-25 12:37 | PC.NURSE ---
us at bedside and does bpp and growth ultrasounds
--- NOTE | 2024-10-25 13:47 | CA_ITS ---
Patient Name: YEFRI UCRRAN MR#: [id number] : 2000 Exam Date: 10/25/2024 Ordering Doctor: JULIO CÉSAR PRAKASH ECHOCARDIOGRAM REPORT PROCEDURE: CA ECHO DOPPLER COMPLETE INDICATIONS: periods of tachycardia, palpitations, 33 weeks COMPARISON: None. DESCRIPTION: COMPLETE ECHOCARDIOGRAM Real-time transthoracic echocardiography with 2D, M-mode, spectral and color flow Doppler performed. QUALITY: Technical quality was good. LEFT VENTRICLE: Normal chamber size. Normal left ventricular wall thickness. Systolic function is normal. LV EF: Normal left ventricular ejection fraction, (>55%). DIASTOLIC: Normal diastolic function. ATRIAL SEPTUM: Visually appears intact. LEFT ATRIUM: Normal chamber size. RIGHT ATRIUM: Normal chamber size. RIGHT VENTRICLE: Normal chamber size. Normal right ventricular systolic function. TRICUSPID VALVE: Normal mobility and thickness. No stenosis with no regurgitation. MITRAL VALVE: Normal mobility and thickness. No evidence of mitral valve stenosis. Trivial mitral regurgitation. AORTIC VALVE: Normal trileaflet appearance. No visible sclerosis. Normal leaflet mobility. No evidence of aortic valve stenosis. No aortic regurgitation. AORTIC ROOT: Normal diameter and appearance. PULMONIC VALVE: Normal thickness and mobility. No stenosis. No regurgitation. PERICARDIUM: No evidence of pericardial effusion. IVC: Collapses with inspirations. IVC is normal in size. PLEURA: CONCLUSION: 1. Normal ventricular size and function. LVEF is estimated at 65%. 2. No significant valvular dysfunction. 3. No pericardial effusion. 4. Unable to assess right-sided pressures due to lack of measurable tricuspid regurgitation. Adult Echocardiography Procedure Report Left Ventricle LVEDD (3.7 - 5.6 cm): 3.97 cm LVESD (2.2 - 4.0 cm): 2.91 cm LVIVS thickness (0.6 - 1.2 cm): 0.82 cm LVPW thickness (0.5 - 1.0 cm): 0.81 cm e': 0.11 m/s E - e': 6.66 LVOT Max Gradient: 4.30 mm[Hg] LVOT Area (cm2): 1.04 m/s Peak Velocity (LVOT): 1.04 m/s Mean Velocity (LVOT): 0.69 m/s LVOT Diameter 1.89 cm Left Atrium LA Volume Index (2D A2C): 18.64 ml/m2 Left Atrium Systolic Dimension: 2.38 cm Mitral Valve MV E to A Ratio: 1.31 Mitral Valve A-Wave Peak Velocity: 0.55 m/s Mitral Valve E-Wave Peak Velocity: 0.72 m/s Right Ventricle Aorta AO Root Diam: 2.86 cm Aortic Valve AoV Area (Peak Bonifacio): 1.82 cm2, 1.82 cm2 AoV Area (VTI): 2.14 cm2, 2.14 cm2 Peak Velocity(Antegrade Flow): 1.60 m/s Peak Gradient(Antegrade Flow): 10.18 mm[Hg] Mean Velocity(Antegrade Flow): 0.99 m/s Mean Gradient(Antegrade Flow): 4.58 mm[Hg] Velocity Time Integral: 23.62 cm Tricuspid Valve Pulmonic Valve Mean Gradient: 2.89 mm[Hg] Mean Velocity: 0.79 m/s Peak Velocity: 1.20 m/s, 1.14 m/s Peak Gradient: 5.15 mm[Hg], 5.71 mm[Hg] Right Atrium Right Atrium Systolic Pressure: 21.02 ml, 21.02 ml Dictated by: Guicho Suresh M.D. on 10/26/2024 at 11:16 Approved by: Guicho Suresh M.D. on 10/26/2024 at 11:18
--- NOTE | 2024-10-25 14:21 | P.HP_ITS ---
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 HEART RATE AT THE TIME REPORTED 140 PER PATIENTS SMART WATCH. UPON QUESTIONING PATIENT STATES THESE EPISODES HAPPEN DAILY. EPISODES OCCUR WEATHER STANDING OR SITTING UPRIGHT. SHE BELIEVES EPISODES ARE DECREASED WHEN ON LEFT SIDE AND ARE MORE SEVERE WHEN LYING FLAT OR ON RIGHT SIDE. wHILE ON MATERNITY SHE IS OBSERVED TO REPETITIVELY GO INTO A SUPRAVENTRICULAR TACHYCARDIA WHICH ARE SELF LIMITING TYPICALLY WITHIN TEN SECONDS. P WAVES ARE VISIBLE BEFORE EACH QRS. SAO2 IS MAINTAINED AT OR ABOVE 95 PERCENT. TODAY THE BABY HAD A 10 OUT OF 10 ON A BIOPHYSICAL PROFILE AND THERE HAS BEEN INTERIM GROWTH SINCE LAST OBSTETRIC US. AMNIOTIC FLUID LEVEL IS NORMAL. THE HEART TRACING IS CATEGORY I. THERE IS NO HISTORY OF ILLICIT DRUG USE OR MARIJUANA USE OR CIGARETTE USE/VAPING. AT TWENTY WEEKS THE PATIENT STOPPED HER CARDIO- FIT AEROBICS PROGRAM. Opioid HPI Opioid Management Most Recent Pain and Opioid Data: No Data to Display Review of Systems ROS0 Status of ROS 10 or more systems reviewed and unremark able except as noted in history and below Cardiovascular Reports: palpitations (WHEN HEART RATE ABOVE 120, FEELS CHEST PRESSURE) [facility] Medical History (Updated 10/25/24 @ 15:06 by Angela Lindo MD) ?Z34.90 - Encounter for supervision of normal , unspecified, unspecified trimester (ICD-10) Epilepsy ?G40.909 - Epilepsy, unspecified, not intractable, without status epilepticus (ICD-10) Meds Home Medications and Allergies Home Medications ?Medication ?Instructions ?Recorded ?Confirmed ?Type folic acid 800 mcg tablet 10/25/24 History levetiracetam 500 mg mg PO 10/25/24 History tablet,extended release 24 hr Allergies Allergy/AdvReac Type Severity Reaction Status Date / Time No Known Drug Allergies Allergy Verified 10/25/24 11:57 Exam Narrative Exam Narrative: IN NO ACUTE DISTRESS, VISITING WITH MOM, ON TELEMETRY BUT ABLE TO EASILY MAINTAIN CONVERSATION WHEN HEART RATE ELEVATES TO 130'S TO 140'S. Constitutional Vital Signs, click to edit/add: Last Vital Signs Pulse 100 H 10/25/24 11:56 BP 116/74 10/25/24 11:56 Documenting provider has reviewed patient's vital signs: yes Common normals: no apparent distress, average body habitus, oriented x3, no limitations, healthy appearing, alert and well nourished General appearance: cooperative, comfortable, well kempt and well developed Nutritional appearance: thin Orientation/consciousness: Yes awake, Yes oriented to person, Yes oriented to place and Yes oriented to time HENMT Common normals: normocephalic, head/scalp atraumatic and hearing grossly normal bilaterally Eye Common normals: PERRL and conjunctivae normal Visual acuity: acuity normal Pupil: accommodation reflex normal Neck & C-Spine Common normals: full ROM, supple, no JVD and thyroid normal Respiratory Common normals: normal respiratory effort, no retractions, no use of accessory muscles and clear to auscultation bilaterally Effort & inspection: able to speak in complete sentences Auscultation: clear to auscultation bilaterally Cardio Common normals: no JVD, regular rate, regular rhythm and no murmurs Rate: other (RATE REGULAR WHETHER IN NORMAL SINUS RYTHM OR SVT) GI Common normals: Normal to inspection, nondistended, normoactive bowel sounds present, soft to palpation and non-tender Common normals: no CVA tenderness OB/external & speculum: deferred Back & Pelvis Common normals: no thoracic nor lumbar tenderness Extremity Common normals: normal to inspection, full ROM, normal capillary refill, no clubbing, cyanosis or edema and no calf tenderness Neuro Common normals: oriented x3, CN's II-XII intact bilaterally, moves all extremities, no focal motor deficits and no sensory deficits noted Motor exam: strength 5/5 throughout Psych Common normals: mental status grossly normal, thought process normal, cooperative, affect normal, speech normal and activity/motor behavior normal Results Labs Labs: Short CBC 10/25/24 Range/Units 11:45 WBC 9.6 (4.0-11.0) 10^3/uL Hgb 10.9 L (12.0-16.0) g/dL Hct 31.3 L (36.0-48.0) % Plt Count 220 (150-450) 10^3/uL BMP 10/25/24 11:45 BUN 5.0 L Creatinine 0.45 L Liver Function 10/25/24 Range/Units 11:45 AST 13 L (15-37) U/L ALT 19 (14-59) U/L Assessment and Plan Assessment and Plan (1) Supraventricular tachycardia: Assessment and Plan: DESCRIBED IN HPI. NOT SUSTAINED, IS SYMPTOMATIC FROM IN TERMS OF EXPERIENCING DIZZINESS AND SOB. OCCASIONALLY SHE FEELS CHEST PRESSURE (2) : Assessment and Plan: BPP 10/10, NO JEOPARDY. NO OBSTETRIC CONCERNS AT THIS POINT IN TIME. GOOD CARE. 33.5 WEEKS. NO OBSTETRIC INDICATORS PRESENTLY FOR EARLY DELIVERY. DISCUSSED POTENTIAL THOUGH NOT EXPECTING NEED FOR TRANSFER TO A [facility] WITH NICU ([facility]). Qualifiers: Weeks of gestation: 33 weeks Qualified Code(s): Z3A.33 - 33 weeks gestation of (3) Epilepsy: Assessment and Plan: WELL CONTROLLED ON KEPPRA Qualifiers: Epilepsy type: unspecified Intractability: not intractable Status epilepticus: without status epilepticus Qualified Code(s): G40.909 - Epilepsy, unspecified, not intractable, without status epilepticus Plan OBSERVATION ADMIT, ON TELEMETRY, ECHOCARDIOGRAM AND ECG DONE, CARDIOLOGY CONSULT ORDERED, BPP DONE AND NORMAL. EXPLAINED TO PATIENT AND HER MOM THE PURPOSE FOR HER ADMISSION AND NEED TO RULE OUT STRUCTURAL CARDIAC ANOMALIES CAUSE FOR PAROXYSMAL SVT. AT THIS POINT THERE ARE NO OBSTETRIC INDICATORS FOR EARLY DELIVERY OR TRANSFER TO NICU FACILITY FOR DELIVERY. IF HEART RATE INCREASES TO 130 TO 14O AND IS SUSTAINED, WILL TRANSFER TO [facility] TO [facility] PERFUSION OF PLACENTA AND EVALUATE FOR NEED FOR EARLY DELIVERY WHICH IS NOT ANTICIPATED AT THIS POINT. SPOKE WITH LAZARO IN CARDIOLOGY OFFICE AND HERE OFFICE CAN ACCESS THIS RECORD FOR REVIEW BY MASON LINER.
--- NOTE | 2024-10-25 14:52 | PC.NURSE ---
Dr Lindo at bedside and talks with pt and her mom at length, cardiac monitors applied and set up for telemetry observation through hospital. pt admits has interrmittent chest pressure and palpitations which increase if lying flat or on right side. Lungs remain clear, spo2 spot checked. Dr Lindo talks with Martiza Gurrola from cardiology and ascertains that cardiology consult is in and that he will be able to see pt tomorrow
--- NOTE | 2024-10-25 15:01 | PC.NURSE ---
echocardiogram ongoing
--- NOTE | 2024-10-25 17:10 | PC.NURSE ---
assessed as noted, lungs clear throughout, HR s1s2 apical strong, color pink, no swelling noted. States still has a slight headache and some intermittent discomfort to suprapubic area, nothing different from earlier. Encouraged to ivis if has a spell with palpitations and chest racing. States usually only had the spells once a day at home then would not feel that way throughout day. Telemetry continues, states does feel heart racing when it traces above 120 on the monitor
--- NOTE | 2024-10-25 19:01 | PC.NURSE ---
calls out with symptoms of chest pounding and sweating, maternal heart rate 130s-140s, HR returns to low 100s without intervention and while pt recovers from episode she says she feels sweaty and her chest has a dull ache in it
[2024-10-25 22:56] LABS: Alanine Aminotransferase 21 U/L (14-59); Albumin Globulin Ratio 0.7; Albumin Level 2.7 g/dL (3.4-5.0); Alkaline Phosphatase 120 U/L (46-116); Anion Gap 13.1; Aspartate Amino Transferase 11 U/L (15-37); Bilirubin Total 0.3 mg/dL (0.2-1.0); Calcium 9.2 mg/dL (8.5-10.1); Carbon Dioxide 23.8 mmol/L (21.0-32.0); Chloride 103 mmol/L (98-107); Estimated GFR (African America >60 (>=60 mL/min/1.73m^2); Estimated GFR (Non-African Ame >60 (>=60 mL/min/1.73m^2); Globulin 4.1 g/dL; Glucose 86 mg/dL (74-106); Potassium 3.9 mmol/L (3.5-5.1); Sodium 136 mmol/L (136-145); Total Protein 6.8 g/dL (6.4-8.2)
[2024-10-26] VITALS (106 sets, daily range): BP systolic 115–149; BP diastolic 72–94; PULSE 79–132; TEMP 36.2; O2SAT 95–97
--- NOTE | 2024-10-26 12:03 | PC.NURSE ---
Addendum entered by Mary Jane Motley 10/26/24 13:53: Consult for episodes of tachycardia. Original Note: 1145: Speech Therapist Early Intervention at bedside for consult of SVT. DR Lindo at bedside as well.
--- NOTE | 2024-10-26 12:09 | PC.NURSE ---
1200: Dr Lindo consults [facility]. 1210: Dr Lindo at patient bedside.
--- NOTE | 2024-10-26 12:19 | P.CACN_ITS ---
<Statement entered by DWAIN SURESH - 10/26/24 16:59> I saw and examined the patient with JOINERY MACHINIST Denton Hart. I also discussed with OB physician Dr iLndo. This documentation has been reviewed and approved. History of Present Illness History of Present Illness Consult date: 10/26/24 Requesting physician: Angela Lindo Chief complaint: SOB,33.5 dizzy a/w fast heart rate Narrative: This is a 23 yo female , 33.5 weeks gestation with PMH of epilepsy for which she is on Keppra for. States she hasn't had a seizure in 5 years. Otherwise, she has no other significant medical history. Denies family hx of heart disease. Rashaad illicit drug use. She developed symptoms of SOB and palpitations about 6 weeks ago, first noticing them while she was sitting down in mandaeism. She states it was difficult for her to catch her breath, she also felt chest pressure at the time. Endorses dizziness but denies LOC. The frequency of SOB and palpitations have increased over the last few weeks and occur daily now. She endorses her smart watch has b een alarming, which showed recent HR range from 56-136 over the last few days. She was at her office visit appt with her production estimator and then admitted to maternity for evaluation and observation of tachycardia, SOB, and dizziness. Today, our services are consulted for tachycardia. She is seen at the bedside today and appears in no acute distress. Of note, her heart rate did increase from 105 to 130-140 on the heart monitor as I began speaking with her and she admitted being anxious. All telemetry alarms were reviewed, and 12 lead ECG, which have all shown sinus tachycardia, no evidence of arrhythmia. Currently, she denies any chest pain or dizziness. Denies lower extremity swelling. Review of Systems ROS Status of ROS 10 or more systems reviewed and unremark able except as noted in history and below Cardiovascular Reports: palpitations Psychiatric Reports: anxiety [facility] Medical History (Updated 10/26/24 @ 13:34 by Denton Hart, OSCAR) ?Z34.90 - Encounter for supervision of normal , unspecified, unspecified trimester (ICD-10) Epilepsy ?G40.909 - Epilepsy, unspecified, not intractable, without status epilepticus (ICD-10) Meds Home Medications and Allergies Home Medications ?Medication ?Instructions ?Recorded ?Confirmed ?Type folic acid 800 mcg tablet 10/25/24 History levetiracetam 500 mg mg PO 10/25/24 History tablet,extended release 24 hr Allergies Allergy/AdvReac Type Severity Reaction Status Date / Time No Known Drug Allergies Allergy Verified 10/25/24 11:57 Exam Constitutional Vital Signs, click to edit/add: Last Vital Signs Temp 97.5 F L 10/25/24 16:55 Pulse 115 H 10/26/24 10:40 Resp 20 10/26/24 10:40 BP 115/86 10/26/24 09:10 Pulse Ox 95 10/26/24 09:10 Common normals: no apparent distress General appearance: cooperative, comfortable, well kempt, well developed and anxious Orientation/consciousness: Yes awake, Yes oriented to person, Yes oriented to place and Yes oriented to time HENMT Common normals: normocephalic Neck & C-Spine Common normals: full ROM, no lymphadenopathy, supple, no JVD, thyroid normal and no carotid bruits Thyroid: thyroid normal Chest Common normals: inspection of chest normal Respiratory Common normals: normal respiratory effort and no use of accessory muscles Effort & inspection: able to speak in complete sentences and symmetric chest movement Auscultation: clear to auscultation bilaterally Cardio Common normals: no JVD, regular rate, regular rhythm, S1 normal heart sound, S2 normal heart sound and peripheral pulses 2+ throughout Rate: tachycardic Rhythm: regular rhythm Heart sounds: S1 normal and S2 normal Peripheral pulses: pulses 2+ throughout Extremity Common normals: normal capillary refill, no clubbing, cyanosis or edema and no pedal edema Neuro Speech: speech normal Psych Mood and affect: anxious Thought process: normal thought process Results Labs and Meds Lab results: Cardiac Enzymes 10/25/24 10/25/24 Range/Units 11:45 11:45 AST 13 L 11 L (15-37) U/L Coagulation 10/25/24 Range/Units 11:45 PT 9.7 (9.0-11.6) sec APTT 23.0 (22.3-36.2) sec Comprehensive Metabolic Panel 10/25/24 10/25/24 10/25/24 Range/Units 11:45 11:45 11:45 Sodium 136 (136-145) mmol/L Potassium 3.9 (3.5-5.1) mmol/L Chloride 103 (98-107) mmol/L Carbon Dioxide 23.8 (21.0-32.0) mmol/L BUN 5.0 L 5.0 L (7.0-18.0) mg/dL Creatinine 0.45 L 0.50 L (0.55-1.02) mg/dL Glucose 86 (74-106) mg/dL Calcium 9.2 (8.5-10.1) mg/dL AST 13 L (15-37) U/L ALT (14-59) U/L Alkaline Phosphatase (46-116) U/L Total Protein (6.4-8.2) g/dL Albumin (3.4-5.0) g/dL 10/25/24 10/25/24 Range/Units 11:45 11:45 Sodium (136-145) mmol/L Potassium (3.5-5.1) mmol/L Chloride (98-107) mmol/L Carbon Dioxide (21.0-32.0) mmol/L BUN (7.0-18.0) mg/dL Creatinine (0.55-1.02) mg/dL Glucose (74-106) mg/dL Calcium (8.5-10.1) mg/dL AST 11 L (15-37) U/L ALT 19 21 (14-59) U/L Alkaline Phosphatase 120 H (46-116) U/L Total Protein 6.8 (6.4-8.2) g/dL Albumin 2.7 L (3.4-5.0) g/dL Imaging and Cardiology Echo: report reviewed and image reviewed EKG Interpretation EKG: normal ST/T ECG shows: tachycardia and sinus rhythm Assessment and Plan Assessment and Plan (1) Tachycardia: Assessment and Plan: 12 lead ECG reviewed, sinus tachycardia. TTE reviewed no abnormal findings; normal LVEF, no valvular abnormalities. No evidence of structural heard disease or arrhythmia. All telemetry strips and alarms reviewed and all show sinus tachycardia, no e vidence of any arrhythmias. Of note, her heart rate did increase from 105 to 130-140 as I started speaking with her. She stated she was feeling anxious. Denies SOB or dizziness currently. She is normotensive. Labs reviewed, electrolytes normal, no anemia. Tachycardia is likely secondary to her advanced , she is 33.5 weeks gestation. -In the absence of an arrhythmia, no interventions are needed at this time. -Recommend sending home with cardiac event monitor (2) Palpitations: Assessment and Plan: 12 lead ECG reviewed, sinus tachycardia, TTE reviewed no abnormal findings; normal LVEF, no valvular abnormalities. Denies palpitations during her hospitalization. -Recommend sending home with cardiac event monitor (3) : Assessment and Plan: , 33.5 weeks gestation. -Continue care per AUTOMOTIVE TECHNICIAN INSTRUCTOR Qualifiers: Weeks of gestation: 33 weeks Qualified Code(s): Z3A.33 - 33 weeks gestation of (4) Epilepsy: Assessment and Plan: Hx of Epilepsy, well controlled, last seizure pt reports was five years ago. She is on Keppra. -Continue Keppra Qualifiers: Epilepsy type: unspecified Intractability: not intractable Status epilepticus: without status epilepticus Qualified Code(s): G40.909 - Epilepsy, unspecified, not intractable, without status epilepticus Plan Plan: Dr. Suresh and I personally saw the patient together, and discussed the patient and plan in great detail with Dr. Angela Lindo, as well as with the patient. In the absence of an arrhythmia, no interventions are needed at this time. Pt can be sent home with a 30d cardiac event monitor at discharge. The rest of care regarding delivery and discharge per AUTOMOTIVE TECHNICIAN INSTRUCTOR. Denton Hart [facility] Cardiovascular Medicine
--- NOTE | 2024-10-26 13:26 | PC.NURSE ---
1313: Episode of SVT noted with symptoms. Patient sitting up in bed talking with mother and sister when episode occurred and resolved without intervention. RN at bedside. Color pink, lungs clear. Denies issues at present.
--- NOTE | 2024-10-26 13:50 | P.DS_ITS ---
DS: Providers Provider Date of admission: 10/25/24 10:30 Primary care physician: ESCOBAR MCCURDY Admitting clinician: Angela Lindo Consults: 10/25/24 13:55 Consult to Cardiology Routine Reason for consultation: SVT in 23YO 33wks, a/w SOB/dizziness, occurs qd Has provider been notified: Yes Attending physician on discharge: Angela Lindo Anticipated date of discharge: 10/26/24 DS: Diagnosis Discharge Diagnosis (1) Tachycardia: Assessment and plan: normal echo, sinus tachycardia, cardiology has seen, plan to have patient wear holter monitor to capture enough hours of heart rate to rule out ectopic foci of atrial contraction. patient has been monitored for two days on unit thus far and no arrythmia has been seen, it is sinus tachycardia. the [facility] will have the patient wear a holter monitore to confirm no arrythmia. then, if need be the heart rate can be controlled with medication. (2) : Assessment and plan: G1 33.6 weeks, 07/19 BPP yesterday, good care, history of epilipsy but well controlled on keppra Qualifiers: Weeks of gestation: 33 weeks Qualified Code(s): Z3A.33 - 33 weeks gestation of (3) Epilepsy: Assessment and plan: no seizure for 5 years on keppra Qualifiers: Epilepsy type: unspecified Intractability: not intractable Status epilepticus: without status epilepticus Qualified Code(s): G40.909 - Epilepsy, unspecified, not intractable, without status epilepticus OB - DS: Summary Hospital Course Hospital Course: uncomplicated Time spent discussing smoking cessation with patient: more than 10 minutes Status at Discharge Cognitive/behavioral status at discharge: wnl Functional status at discharge: independent ambulation Overall status at discharge: other (antepartum admission) Time Spent with Patient Time attestation: Total time spent providing and/or coordinating discharge services: Time spent: greater than 30 minutes Specific discharge activities: will wear holter monitor to record heart rate to confirm sinus tachycardia which can be controlled if need be with medication Exam Narrative Exam Narrative: voicing no complaints Constitutional Vital Signs, click to edit/add: Last Vital Signs Temp 97.5 F L 10/25/24 16:55 Pulse 115 H 10/26/24 10:40 Resp 20 10/26/24 10:40 BP 115/86 10/26/24 09:10 Pulse Ox 95 10/26/24 09:10 Documenting provider has reviewed patient's vital signs: yes Common normals: no apparent distress, oriented x3, no limitations, healthy appearing, alert and well nourished General appearance: cooperative and comfortable HENMT Common normals: normocephalic and head/scalp atraumatic Eye Common normals: PERRL Pupil: accommodation reflex normal Neck & C-Spine Common normals: full ROM and supple Respiratory Common normals: normal respiratory effort Auscultation: clear to auscultation bilaterally Cardio Common normals: regular rate and regular rhythm GI Common normals: Normal to inspection, nondistended, normoactive bowel sounds present, soft to palpation and non-tender Common normals: no CVA tenderness Back & Pelvis Common normals: no thoracic nor lumbar tenderness Extremity Common normals: normal to inspection, full ROM and no calf tenderness Neuro Common normals: CN's II-XII intact bilaterally, moves all extremities, no focal motor deficits and no sensory deficits noted Motor exam: strength 5/5 throughout Psych Common normals: mental status grossly normal, thought process normal, cooperative, affect normal and activity/motor behavior normal DS: Data Data Completed and Pending Labs on day of discharge: Labs from last 24 hours 10/25/24 11:45 Sodium 136 Potassium 3.9 Chloride 103 Carbon Dioxide 23.8 Anion Gap 13.1 BUN 5.0 L Creatinine 0.50 L Est GFR ( Amer) >60 Est GFR (Non-Af Amer) >60 BUN/Creatinine Ratio 10.0 Glucose 86 Calcium 9.2 Total Bilirubin 0.3 AST 11 L ALT 21 Alkaline Phosphatase 120 H Total Protein 6.8 Albumin 2.7 L Globulin 4.1 Albumin/Globulin Ratio 0.7 Discharge Plan Discharge Disposition: (FBC OBS) Home, Self-Care Condition: Good Assessment: hemodynamically stable with sinus tachycardia, being evaluated right now per [facility], after holter information gathered may consider medication, baby not pressently in jeopardy Discharge Medications: Continued folic acid 800 mcg tablet levetiracetam 500 mg tablet extended release 24 hr PO Activity: resume usual activities as tolerated Activity Detail: live normal life while being monitored Diet: regular diet Print Language: Portuguese Patient Instructions: Tachycardia (ED) Activity Restrictions/Additional Instructions: continue activities of normal daily living Follow Up Appointments: will follow up with [facility] per their direction, will follow up with OB provider weekly, will discuss case with Lana Briscoe
--- NOTE | 2024-10-26 13:50 | PC.NURSE ---
1313: Episode of tachycardia noted on monitor. Patient sitting up in bed talking with mother and sister. Resolves without intervention. Color pink, lungs clear and denies shortness of breath currently.
--- NOTE | 2024-10-26 17:16 | PC.NURSE ---
Addendum entered by Mary Jane Motley 10/26/24 17:21: 1535: Library Information Technician talks with Dr Lindo Original Note: 1530: Library Information Technician at bedside talking with patient. Physician to review cardiac monitoring. 1545: Library Information Technician at bedside and reviews plan of care with patient. 1620: Event monitor placed per cardiology.
--- NOTE | 2024-10-26 17:18 | PC.NURSE ---
1536: Dr Lindo calls and order received for discharge.
== END 2024-10-26 16:50 | disposition home or self-care (01) ==
PROVIDERS: Admitting Provider Midwife; PCP Family Medicine; Visit Provider Obstetrics & Gynecology
DX: O99.891 Other specified diseases and conditions complicating pregnancy (principal); R00.0 Tachycardia, unspecified; Z3A.33 33 weeks gestation of pregnancy; R00.2 Palpitations; O99.353 Diseases of the nervous system complicating pregnancy, third trimester; G40.909 Epilepsy, unspecified, not intractable, without status epilepticus; Z79.899 Other long term (current) drug therapy
CPT/HCPCS: 36415; 59050; 76816; 76818; 80053; 82565; 82570; 84156; 84450; 84460; 84520; 84550; 85025; 85384; 85610; 85730; 93005; 93306; G0378; G0379

== ENCOUNTER 2024-10-29 11:53 | Observation (INO) | payer OTHER, SELFPAY ==
--- OUTSIDE RECORDS SUMMARY | 2024-10-29 12:10 | XMS_ITS | CCD ---
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 Name Role Phone Johanne Meza MD Primary Care Provider [phone] Johanne Meza MD Unavailable HIWOT BRYANT Attending Unavailable JOHANNE MEZA Primary Care Unavailable Johanne Meza MD Unavailable JOHANNE MEZA Primary Care Unavailable CASANDRA KINCAID Attending Unavailable CASANDRA KINCAID Referring Unavailable JOHANNE MEZA Primary Care Unavailable Johanne Meza MD Primary Care Provider Johanne Meza MD Primary Care Provider [phone] AMBER BRISCOEERIE Referring Unavailable MEZA, JOHANNE A Primary Care Unavailable BESS GONZALEZ Attending Unavailable FLORO, CHELO Referring Unavailable MEZA, JOHANNE A Primary Care Unavailable SHERIO, CHELO L Attending Unavailable TANYA ROCHE Attending Unavailable FLORO, CHELO L Attending Unavailable FLORO, CHELO L Attending Unavailable FLORO, CHELO L Referring Unavailable FLORO, CHELO L Attending Unavailable FLORO, CHELO L Attending Unavailable FLORO, CHELO L Attending Unavailable FLORO, CHELO L Attending Unavailable FLORO, CHELO L Attending Unavailable FELICIANO CHAPA Attending Unavailable FLORO, CHELO L Attending Unavailable FLORO, HCELO L Attending Unavailable Allergies Allergy Classification Reported Allergen(s) Allergy Type Date of Onset Reaction(s) Facility (4 sources) Wheat gluten extract; Translations: [GLUTEN] Drug Allergy 0 Other: See Comments [facility] (20 sources) Ketamine; Translations: [KETAMINE] Drug Allergy [...] extended release oral tablet (20 sources) Start: End: take 4 tablets by mouth once daily [...] once daily at bedtime (=2000mg/day). Magnesium Oxide (8 sources) magnesium oxide (Mag-Ox) 400 mg tablet [...] vomiting 20 tablet 1 06/14/2024 07/14/2024 Active qs646-jmab-tccyl acid ( 19) 29 mg iron- 1 mg tablet,chewable (1 source) hz820-svoh-kisgy acid ( 19) 29 mg iron- 1 mg tablet,chewable Chew 1 tablet and swallow in the morning. Active sucralfate 1000 mg oral tablet (1 source) Aluminum Complex Start: End: 03-26-2 024 take 1 tablet by mouth at bedtime [...] Active terbinafine hydrochloride 10 mg/ml topical cream (13 sources) Allylamine Antifungal Start: 024 terbinafine (LamISIL AT) 1 % cream Indications: [...] intractable, without status epilepticus] Onset: 06-18-2015 Chronic Hypertension complicating ; childbirth and the puerperium (2 sources) Elevated blood pressure; Translations: [Unspecified maternal hypertension, third trimester] 10-25-2024 Chronic Menstrual disorders (2 sources) Amenorrhea; Translations: [...] 09-21-2024 Episodic Other and delivery including normal (14 sources) Second trimester ; Translations: [Encounter for [...] Nom ( U)on 05-06-2024 Appearance (U) Adequate [facility] Healthcare Internal identifier for Provider [id number] [facility] Healthcare Specimen source Nom (Unsp spec) URINE NOM Healthcare STATUS FINAL [facility] Laboratory - Drug toxicology on 05-06-2024 4-Xdowrnxxvm-0,5-Dimethy l-3,3-Diphenylpyrrolidin e (EDDP) Ql (U) Negative NINF - 100 ng/mL [facility] Healthcare Amphetamines Ql (U) Negative NINF - 5 00 ng/mL [facility] Barbiturates Ql (U) Negative NINF - 3 00 ng/mL [facility] Benzodiazepines Ql (U) Negative NINF - 100 ng/mL [facility] Healthcare Benzoylecgonine Ql (U) Negative NINF - 150 ng/mL [facility] Opiates Ql (U) Negative NINF - 100 ng/mL [facility] oxyCODONE Ql (U) Negative NINF - 100 ng/mL [facility] Phencyclidine Ql (U) Negative NINF - 25 ng/mL [facility] Tetrahydrocannabinol Screen method >20 ng/mL Ql (U) Negative NINF - 20 ng/mL [facility] Laboratory - Microbiology an d Antimicrobial susceptibilityon 05-06-2024 Bacteria identified Cx Nom (U) SEE NOTE [facility] Comment on above: Mixed genital oma isolated. These superficial bacteria are not indicative of a urinary tract infection. No further organism identification is warranted on this specimen. If clinically indicated, recollect clean-catch, mid-stream urine and transfer immediately to Urine Culture Transport Tube. Laboratory - Miscellaneous t estson 05-06-2024 Service comment (Unsp spec) [Interp] [facility] Comment on above: This urine was carol zed for the presence of WBC, RBC, bacteria, casts, and other formed elements. Only those elements seen were reported. Laboratory - Urinalysison Bacteria LM.HPF (Urine sed) [#/Area] FEW Abnormal NONE SEEN /HPF [facility] N. gonorrhoeae DNA SADIE+probe Ql (Cervical mucus)on 05-06-2024 C. trachomatis rRNA SADIE+probe Ql (Unsp spec) Not detected NOT DETECTED [facility] N. gonorrhoeae rRNA SADIE+probe Ql (Unsp spec) Not detected NOT DETECTED [facility] No Panel Informationon 05-06 (ALWAYS MESSAGE) [facility] Comment on above: See Note 1 Note 1 This drug testing is for medical treatment only. Analysis was performed as non-forensic testing and these results should be used only by healthcare providers to render diagnosis or treatment, or to monitor progress of medical conditions. For assistance with interpreting these drug results, please contact a [facility] Toxicology Specialist: [phone] ( ), M-F, 8am-6pm EST. The analytical perfo rmance characteristics of this assay, when used to test SurePath(TM) specimens have been determined by [facility]. The modifications have not been cleared or approved by the FDA. This assay has been validated pursuant to the CLIA regulations and is used for clinical purposes. For additional information, please refer to https://education.InEdge/faq/MPX313 (This link is being provided for information/ educational purposes only.) Interpretation and review of laboratory results Abnormal [facility] SPLIT 05/03/2024 FROM [id number] QUEST Performing Organization Information Site ID: QPT Name: [facility] Address: [address] [facility], [address] [place] [phone] Director: Jd Crystal MD [facility] Information Site ID: QTW Name: [facility] Address: [address] [place] [phone] Director: Verna Regan [facility] CBC panel Auto (Bld)on 05-04 Erythrocyte distribution width (RBC) [Ratio] 11.7 % 11.0 - 15.0 % [facility] Hematocrit (Bld) [Volume fraction] 40.2 % 35.0 - 45.0 % [facility] Hemoglobin (Bld) [Mass/Vol] 14.0 g/dL 11.7 - 15.5 g/dL [facility] MCH (RBC) [Entitic mass] 32.0 pg 27. 0 - 33.0 pg [facility] MCHC (RBC) [Mass/Vol] 34.8 g/dL 32.0 - 36.0 g/dL [facility] MCV (RBC) [Entitic vol] 92.0 fL 80.0 - 100.0 fL [facility] Platelet mean volume (Bld) [Entitic vol] 10.8 fL 7.5 - 12.5 fL [facility] Platelets (Bld) [#/Vol] 255 10*3/uL [facility] RBC (Bld) [#/Vol] 4.37 10*6/uL [facility] WBC (Bld) [#/Vol] 9.6 10*3/uL [facility] Laboratory - Blood bankon ABO group Nom (Bld) AB [facility] Blood group antibody screen Ql Detected [facility] Comment on above: Reference range No antibodies detected This assay is a screening test for the detection of red blood cell antibodies. The test is not to be used for pretransfusion screening or for the medical management of an alloimmunized . Rh Nom (Bld) Positive [facility] Comment on above: For additional information, please refer to http://education.[employer]/faq/MBB382 (This link is being provided for informational/ educational purposes only.) Laboratory - Chemistry and C hemistry - challengeon 05-04-2024 TSH Qn 1.33 m[IU]/L mIU/L [facility] Comment on above: Reference Range > or = 20 Years 0.40-4.50 Ranges First trimester 0.26-2.66 Second trimester 0.55-2.73 Third trimester 0.43-2.91 Laboratory - Hematology and Cell countson 05-04-2024 HbA1c (Bld) [Mass fraction] 5.1 % NINF [facility] Comment on above: For the purpose of s creening for the presence of diabetes: <5.7% Consistent with the absence of diabetes 5.7-6.4% Consistent with increased risk for diabetes (prediabetes) > or =6.5% Consistent with diabetes This assay result is consistent with a decreased risk of diabetes. Currently, no consensus exists regarding use of hemoglobin A1c for diagnosis of diabetes in children. According to [place] Diabetes Association (ADA) guidelines, hemoglobin A1c <7.0% represents optimal control in non- diabetic patients. Different metrics may apply to specific patient populations. Standards of Medical Care in Diabetes(ADA). This test was performed on the Jason lani c503 platform. Effective 09/26/23, a change in test platforms from the [employer] to the Jason lani c503 may have shifted HbA1c results compared to historical results. Based on laboratory validation testing conducted at [facility], the Jason platform relative to the Cerna [...] HBV surface Ag IA Ql Non-Reactive NON-REACTIVE [facility] Comment on above: For additional information, please refer to http://education.3 [employer].DeepField/faq/MNL363 (This link is being provided for informational/ educational purposes only.) HCV Ab IA Ql Non-Reactive NON-REACTIVE [facility] Comment on above: HCV antibody was non-reactive. There is no laboratory evidence of HCV infection. In most cases, no further action is required. However, if recent HCV exposure is suspected, a test for HCV RNA (test code 67041) is suggested. For additional information please refer to http://education.InEdge/faq/MVI34m7 (This link is being provided for informational/ educational purposes only.) HIV 1+2 Ab+HIV1 p24 Ag IA Ql Non-Reactive NON-REACTIVE [facility] Comment on above: HIV-1 antigen and HI [...] purpose. For additional information please refer to http://LATTO.InEdge/faq/BXF369 (This link is being provided for informational/ educational purposes only.) The performance of this assay has not been clinically validated in patients less than 2 years old. Reagin Ab RPR Ql (S) Non-Reactive NON-REACTIVE [facility] Rubella virus IgG Qn (S) 1.80 [IU]/mL Index [facility] Comment on above: Index Interpretation ----- <0.90 Not consistent with immunity 0.90-0.99 Equivocal > or = 1.00 Consistent with immunity The presence of rubella IgG antibody suggests immunization or past or current infection with rubella virus. No Panel Informationon 05-04 COLLECTION KIT GIVEN TO PATIENT. PATIENT ADVISED TO RETURN. Insportant Organization Information Site ID: QPT Name: [facility] Address: [address] [place] [address], [address] [place] [phone] Director: Jd Crystal MD [facility] HCG ( test) Ql (U)o n 05-03-2024 Interpretation and review of laboratory results Abnormal [facility] Preg Test, Ur Positive [facility] US OB < 14 WEEKS EARLYon US [...] 24 ABSOLUTE BASOPHIL 0.1 X10E9/L Normal 0.0-0.2 [facility] Comment on above: Performed By: #### C QAMAR CMP, 3040-3 #### [facility] ([id number]) [address] [place] [address] ABSOLUTE NEUTROPHIL 5.8 X10E9/L Normal 1.5-6.6 [facility] Comment on above: Performed By: #### Lang FOOTE CMP, 3040-3 #### [facility] ([id number]) [address] [place] [address]3593 Basophils/100 WBC (Bld) 0.6 % Normal [facility] Comment on above: Performed By: #### Lang FOOTE CMP, 3040-3 #### [facility] ([id number]) [address] [place] [address] 21138 Eosinophils (Bld) [#/Vol] 1.1 10*3/uL High 0.0-0.[address] [facility] Comment on above: Performed By: #### Lang FOOTE CMP, 3040-3 #### [facility] ([id number]) [address] [place] [address] 18397 Eosinophils/100 WBC (Bld) 11.4 % Normal [facility] Comment on above: Performed By: #### C BCA CMP, 3039-3 #### [facility] ([id number]) [address] [place] [address] Erythrocyte distribution width (RBC) [Ratio] 12.3 % Normal 11.5-15.[address] [facility] Comment on above: Performed By: #### Lang FOOTE CMP, 3039-3 #### [facility] ([id number]) [address] [place] [address] 11770 Hematocrit (Bld) [Volume fraction] 42.4 % Normal 35-[address] [facility] Comment on above: Performed By: #### Lang FOOTE CMP, 3039-12 #### [facility] ([id number]) [address] [place] [address] 86001 Hemoglobin (Bld) [Mass/Vol] 14.9 g/dL Normal 11.7-15.[address] [facility] Comment on above: Performed By: #### Lang FOOTE CMP, 3 #### [facility] ([id number]) [address] [place] [address] 88466 Lymphocytes (Bld) [#/Vol] 1.8 10*3/uL Normal 1.0-3.[address] [facility] Comment on above: Performed By: #### Lang FOOTE CMP, 3039-12 #### [facility] ([id number]) [address] [place] [address]000 Lymphocytes/100 WBC (Bld) 19.0 % Normal [facility] Comment on above: Performed By: #### Lang FOOTE, CMP, 3 #### [facility] ([id number]) [address] [place] [address]31 MCH (RBC) [Entitic mass] 31.3 pg Normal 27-[address] [facility] Comment on above: Performed By: #### Lang FOOTE, CMP, 3 #### [facility] ([id number]) [address] [place] [address]642 MCHC (RBC) [Mass/Vol] 35.2 g/dL Normal 32-36 [facility] Comment on above: Performed By: #### Lang FOOTE CMP, 0-3 #### [facility] ([id number]) [address] [place] [address] 02756 MCV (RBC) [Entitic vol] 89 fL Normal 80-100 [facility] Comment on above: Performed By: #### Lang FOOTE CMP, 3 #### [facility] ([id number]) [address] [place] [address] 22175 Monocytes (Bld) [#/Vol] 0.8 10*3/uL Normal 0-0.[address] [facility] Comment on above: Performed By: #### Lang FOOTE CMP, 3 #### [facility] ([id number]) [address] [place] [address] 78469 Monocytes/100 WBC (Bld) 8.7 % Normal [facility] Comment on above: Performed By: #### Lang FOOTE [facility], 3 #### [facility] ([id number]) [address] [place] [address] 55334 Neutrophils/100 WBC (Bld) 60.3 % Normal [facility] Comment on above: Performed By: #### Lang FOOTE CMP, 3 #### [facility] ([id number]) [address] [place] [address] 92476 Platelet mean volume (Bld) [Entitic vol] 8.3 fL Normal 7-[address] [facility] Comment on above: Performed By: #### Lang FOOTE CMP, 3039-3 #### [facility] ([id number]) [address] [place] [address] 07002 Platelets (Bld) [#/Vol] 231 10*3/uL Normal 150-[address] [facility] Comment on above: Performed By: #### C BCA, CMP, 3039-3 #### [facility] ([id number]) [address] [place] [address] 85736 RBC COUNT 4.76 X10E12/L Normal 3.80-5.[address] [facility] Comment on above: Performed By: #### C BCA, CMP, 3039-3 #### [facility] ([id number]) [address] [place] [address] 18348 WBC (Bld) [#/Vol] 9.7 10*3/uL Normal 4.0-11.0 [facility] Comment on above: Performed By: #### C BCA, CMP, 3 #### [facility] ([id number]) [address] [place] [address] 56377 COMPREHENSIVE METABOLIC PANE Manny 12-20-2023 Albumin [Mass/Vol] 4.6 g/dL Normal 3.2-5.3 [facility] Comment on above: Performed By: #### C QAMAR, CMP, 3039-3 #### [facility] ([id number]) [address] [place] [address] 33409 ALP [Catalytic activity/Vol] 61 U/L Normal 39-[address] [facility] Comment on above: Performed By: #### C BCA, CMP, 3039-3 #### [facility] ([id number]) [address] [place] [address] 11306 ALT [Catalytic activity/Vol] 18 U/L Normal 0-[address] [facility] Comment on above: Performed By: #### C BCA, CMP, 3039-3 #### [facility] ([id number]) [address] [place] [address] 85824 Anion gap [Moles/Vol] 11 mmol/L Normal 5-15 [facility] Comment on above: Performed By: #### C BCA, CMP, 3039-3 #### [facility] ([id number]) [address] [place] [address] 29410 AST [Catalytic activity/Vol] 18 U/L Normal 0-[address] [facility] Comment on above: Performed By: #### C BCA, CMP, 3039-3 #### [facility] ([id number]) [address] [place] [address] 40803 Bilirubin [Mass/Vol] 0.5 mg/dL Normal 0.3-1.2 [facility] Comment on above: Performed By: #### C BCA, CMP, 3039-3 #### [facility] ([id number]) [address] [place] [address] 06112 Calcium [Mass/Vol] 9.7 mg/dL Normal 8.5-10.5 [facility] Comment on above: Performed By: #### C BCA, CMP, 3039-3 #### [facility] ([id number]) [address] [place] [address] 90345 Chloride [Moles/Vol] 101 mmol/L Normal 98-109 [facility] Comment on above: Performed By: #### C BCA, CMP, 3039-3 #### [facility] ([id number]) [address] [place] [address] 54639 CO2 [Moles/Vol] 26 mmol/L Normal 22-[address] [facility] Comment on above: Performed By: #### C BCA, CMP, 3039-3 #### [facility] ([id number]) [address] [place] [address] 79064 Creatinine [Mass/Vol] 0.89 mg/dL Normal 0.40-1.00 [facility] Comment on above: Result Comment: METH OD TRACEABLE TO IDMS STANDARD Performed By: #### C BCA, CMP, 3039-3 #### [facility] ([id number]) [address] [place] [address] 14971 eGFR (CKD-EPI) NON-RACE DEPENDENT >90 Normal >[address] [facility] Comment on above: Result Comment: Reported eGFR is based on the CKD-EPI 2020 equation that does not use a race coefficient. Performed By: #### C SIDDHARTHA FOOTE, 3040-3 #### [facility] ([id number]) [address] [place] [address] 21778 Glucose [Mass/Vol] 97 mg/dL Normal 65-99 [facility] Comment on above: Performed By: #### Lang FOOTE CMP, 3040-3 #### [facility] ([id number]) [address] [place] [address] 82066 Potassium [Moles/Vol] 3.7 mmol/L Normal 3.5-5.0 [facility] Comment on above: Performed By: #### Lang FOOTE CMP, 3039-3 #### [facility] ([id number]) [address] [place] [address] 20015 Protein [Mass/Vol] 7.8 g/dL Normal 6.0-8.0 [facility] Comment on above: Performed By: #### Lang FOOTE CMP, 3040-3 #### [facility] ([id number]) [address] [place] [address] 51659 Sodium [Moles/Vol] 138 mmol/L Normal 134-146 [facility] Comment on above: Performed By: #### C QAMAR CMP, 3040-3 #### [facility] ([id number]) [address] [place] [address] 29469 Urea nitrogen [Mass/Vol] 22 mg/dL Normal 5-[address] [facility] Comment on above: Performed By: #### Lang FOOTE CMP, 3040-3 #### [facility] ([id number]) [address] [place] [address] [place] [address] [address] ABDOMEN AND PELVIS W CONT on [...] Dodd MD on 12/20/2023 6:36 PM Normal [facility] HCG ( test) Ql (U)o n 12-20-2023 Beta HCG ( test) Ql (U) Negative Normal NEG [facility] Comment on above: Performed By: #### 2 106-3 #### [facility] ([id number]) [address] [place] [address] 12104 LIPASEon 12-20-2023 Lipase [Catalytic activity/Vol] 28 U/L Normal 17-[address] [facility] Comment on above: Performed By: #### C BCA, CMP, 3040-3 #### [facility] ([id number]) [address] [place] [address] 30226 URN MACROSCOPIC NURon 2023 BILIRUBIN ALISON Negative Normal NEG [facility] Comment on above: Performed By: #### N UM #### [facility] ([id number]) [address] [place] [address] 46417 BLOOD/HGB ALISON Negative Normal NEG [facility] Comment on above: Performed By: #### N UM #### [facility] ([id number]) [address] [place] [address] 57497 GLUCOSE ALISON Negative Normal NEG [facility] Comment on above: Performed By: #### N UM #### [facility] ([id number]) [address] [place] [address] 63457 KETONES ALISON Negative Normal NEG [facility] Comment on above: Performed By: #### N UM #### [facility] ([id number]) [address] [place] [address] 64826 LEUKOCYTE ESTERASE ALISON Negative Normal NEG [facility] Comment on above: Performed By: #### N UM #### [facility] ([id number]) [address] [place] [address] 80615 NITRITE ALISON Negative Normal NEG [facility] Comment on above: Performed By: #### N UM #### [facility] ([id number]) [address] [place] [address]3843 PH ALISON 7.0 Normal 5.0-8.[address] [facility] Comment on above: Performed By: #### N UM #### [facility] ([id number]) [address] [place] [address] 01329 PROTEIN ALISON Negative Normal NEG [facility] Comment on above: Performed By: #### N UM #### [facility] ([id number]) [address] [place] [address] [place] [address] SPECIFIC GRAVITY ALISON 1.020 Normal 1.003-1.035 [facility] Comment on above: Performed By: #### N UM #### [facility] ([id number]) [address] [place] [address] [place] [address] UROBILINOGEN ALISON 0.2 eu/dL Normal <1.1 [facility] Comment on above: Performed By: #### N UM #### [facility] ([id number]) [address] [place] [address], [place] [address] Veena 06-23-2022 CNPN Telephone (NE50MN) ---- YEFRI XIONG ([id number]) 4 F Date Time Provider Department 06/23/22 HIWOT BRYANT NE50MN During your visit today, we recorded the following information about you: Gi Ndiaye Sec 06/23/2022 10:42 AM Signed General call : Full name of person calling: Nehal Xiong Relationship to patient: mom Phone # : [phone] Reason for call: Please mail another copy [...] Status:Closed by LIZ MCKEON on 06/23/22 Normal [facility] US Pelvic, Transabdominalon 09-17-2021 US Pelvic, [...] by Danilo Wren on 09/17/2021 1435 Normal [facility] Lasting Room Supervisor CNPNon 07-13-2021 CNPN Telephone (NE50MN) ---- YEFRI XIONG ([id number]) 4 F Date Time Provider Department 07/13/21 HIWOT BRYANT NE50MN During your visit today, we recorded the following information about you: ANASTACIA Baltazar 07/13/2021 10:25 AM Signed OUTSIDE LAB REPORT FACILITY NAME [facility] PHONE/FAX [phone] / [phone] COLLECTION DATE AND TIME: 07/08/21 4:12pm Uploaded to [facility] Liz Mckeon RN 07/15/2021 4:06 PM Signed [...] 07/15/2021 4:34 PM Signed Results shared via [employer] message. Liz Mckeon RN Allergies As of [...] Status:Closed by LIZ MCKEON on 07/15/21 Normal [facility] Vital Signs Date Time Vital Sign Value Performing Clinician Faci lity 10-25-2024 08:59-0500 Body mass index (BMI) [Ratio] 28.32 kg/m2 Chelo Floro CNM Work Phone: [facility] 10-25-2024 08:59-0500 Body weight 65.77 kg Chelo Floro CNM Work Phone: [facility] 10-25-2024 08:59-0500 Diastolic blood pressure 90 mm[Hg] Chelo Floro CNM Work Phone: [facility] 10-25-2024 08:59-0500 Systolic blood pressure 140 mm[Hg] Chelo Floro CNM Work Phone: [facility] 10-08-2024 16:05-0500 Body mass index (BMI) [Ratio] 27.73 kg/m2 Chelo Floro CNM Work Phone: [facility] 10-08-2024 16:05-0500 Body weight 64.41 kg Chelo Sherio CNM Work Phone: [facility] 10-08-2024 16:05-0500 Diastolic blood pressure 78 mm[Hg] Chelo Floro CNM Work Phone: [facility] 10-08-2024 16:05-0500 Systolic blood pressure 120 mm[Hg] Chelo Floro CNM Work Phone: [facility] 09-21-2024 08:52-0500 Body height 152.4 cm Feliciano Rusher DPM Work Phone: [facility] 09-21-2024 08:52-0500 Body mass index (BMI) [Ratio] 27.15 kg/m2 Feliciano Rusher DPM Work Phone: [facility] 09-21-2024 08:52-0500 Body weight 63.05 kg Feliciano Rusher DPM Work Phone: [facility] 09-04-2024 14:25-0500 Body mass index (BMI) [Ratio] 27.15 kg/m2 Chelo Floro CNM Work Phone: [facility] 09-04-2024 14:25-0500 Body weight 63.05 kg Chelo Floro CNM Work Phone: [facility] 09-04-2024 14:25-0500 Diastolic blood pressure 80 mm[Hg] Chelo Floro CNM Work Phone: [facility] 09-04-2024 14:25-0500 Systolic blood pressure 118 mm[Hg] Chelo Floro CNM Work Phone: [facility] 08-07-2024 14:33-0400 Body mass index (BMI) [Ratio] 26.95 kg/m2 Chelo Floro CNM Work Phone: [facility] 08-07-2024 14:33-0400 Body weight 62.6 kg Chelo Floro CNM Work Phone: [facility] 08-07-2024 14:33-0400 Diastolic blood pressure 74 mm[Hg] Chelo Floro CNM Work Phone: [facility] 08-07-2024 14:33-0400 Systolic blood pressure 118 mm[Hg] Chelo Floro CNM Work Phone: [facility] 07-25-2024 11:40-0400 Body height 152.4 cm Bess Gonzalez MD Work Phone: [facility] 07-25-2024 11:40-0400 Body mass index (BMI) [Ratio] 25.62 kg/m2 Bess Gonzalez MD Work Phone: [facility] 07-25-2024 11:40-0400 Body weight 59.51 kg Bess Gonzalez MD Work Phone: [facility] 07-25-2024 11:40-0400 Diastolic blood pressure 77 mm[Hg] Bess Gonzalez MD Work Phone: [facility] 07-25-2024 11:40-0400 Heart rate 78 /min Bess Gonzalez MD Work Phone: [facility] 07-25-2024 11:40-0400 Systolic blood pressure 132 mm[Hg] Bess Gonzalez MD Work Phone: [facility] 07-02-2024 16:35-0400 Body mass index (BMI) [Ratio] 24.8 kg/m2 Chelo Floro CNM Work Phone: [facility] 07-02-2024 16:35-0400 Body weight 57.61 kg Chelo Floro CNM Work Phone: [facility] 07-02-2024 16:35-0400 Diastolic blood pressure 70 mm[Hg] Chelo Floro CNM Work Phone: [facility] 07-02-2024 16:35-0400 Systolic blood pressure 120 mm[Hg] Chelo Floro CNM Work Phone: [facility] 06-14-2024 09:42-0400 Body mass index (BMI) [Ratio] 24.22 kg/m2 Chelo Floro CNM Work Phone: [facility] 06-14-2024 09:42-0400 Body weight 56.25 kg Chelo Floro CNM Work Phone: [facility] 06-14-2024 09:42-0400 Diastolic blood pressure 70 mm[Hg] Chelo Floro CNM Work Phone: [facility] 06-14-2024 09:42-0400 Systolic blood pressure 120 mm[Hg] Chelo Floro CNM Work Phone: [facility] 06-04-2024 15:43-0400 Body mass index (BMI) [Ratio] 23.83 kg/m2 Chelo Floro CNM Work Phone: [facility] 06-04-2024 15:43-0400 Body weight 55.34 kg Chelo Floro CNM Work Phone: [facility] 06-04-2024 15:43-0400 Diastolic blood pressure 80 mm[Hg] Chelo Floro CNM Work Phone: [facility] 06-04-2024 15:43-0400 Systolic blood pressure 118 mm[Hg] Chelo Briscoe CNM Work Phone: [facility] 05-03-2024 15:10-0400 Body mass index (BMI) [Ratio] 24.22 kg/m2 Chelo Briscoe CNM Work Phone: [facility] 05-03-2024 15:10-0400 Body weight 56.25 kg Chelo Briscoe CNM Work Phone: [facility] 11-18-2023 10:47-0500 Body height 152.4 cm Tanya Roche MD Work Phone: [facility] 11-18-2023 10:47-0500 Body mass index (BMI) [Ratio] 24.8 kg/m2 Tanya Roche MD Work Phone: [facility] 11-18-2023 10:47-0500 Body weight 57.61 kg Tanya Roche MD Work Phone: [facility] 11-18-2023 10:47-0500 Diastolic blood pressure 78 mm[Hg] Tanya Roche MD Work Phone: [facility] 11-18-2023 10:47-0500 Heart rate 68 /min Tanya Roche MD Work Phone: [facility] 11-18-2023 10:47-0500 Systolic blood pressure 122 mm[Hg] Tanya Roche MD Work Phone: [facility] Healthcare Encounters Encounter Date Encounter Type Care Provider Facility Start: 10-29-2024 End: 10-29-2024 Telephone encounter Chelo Briscoe CNM Work Phone: [facility] Start: 10-25-2024 End: 10-25-2024 Subsequent care visit Chelo Briscoe CNM Work Phone: [facility] Comment on above: Encounter for prenat al care of first , third trimester (Primary Dx); Elevated blood pressure affecting in third trimester, antepartum Start: 10-25-2024 ambulatory CHELO L FLORO Not Cammie ilable Start: 10-08-2024 End: 10-08-2024 Subsequent care visit Chelo Arthur Floro CNM Work Phone: [facility] Comment on above: Encounter for prenat al care of first , third trimester (Primary Dx); Other epilepsy with status epilepticus, not intractable ([facility]) Start: 10-08-2024 End: 10-08-2024 ambulatory CHELO L FLORO Not Available Start: 10-08-2024 End: 10-08-2024 Bamboo flowsheet Chelo L Floro CNM Work Phone: [facility] Start: 10-08-2024 End: 10-08-2024 Bamboo flowsheet Chelo L Floro CNM Work Phone: [facility] Start: 09-21-2024 End: 09-21-2024 Bamboo flowsheet Feliciano S Rusher DPM Work Phone: [facility] Start: 09-21-2024 End: 09-21-2024 Bamboo flowsheet Feliciano S Rusher DPM Work Phone: [facility] Start: 09-21-2024 End: 09-21-2024 Office outpatient visit 15 minutes Feliciano S Rusher DPM Work Phone: [facility] Comment on above: Ingrown toenail (Akila aster Dx); Left foot pain Start: 09-21-2024 End: 09-21-2024 ambulatory FELICIANO S RUSHER Not Available Start: 09-10-2024 End: 09-10-2024 Telephone encounter Chelo L Floro CNM Work Phone: [facility] Start: 09-05-2024 End: 09-05-2024 Telephone encounter Chelo L Floro CNM Work Phone: [facility] Start: 09-04-2024 End: 09-04-2024 Subsequent care visit Chelo Carbajalo CNM Work Phone: [facility] Comment [...] 08-07-2024 End: 08-07-2024 Subsequent care visit Chelo Carbajalo CNM Work Phone: [facility] Comment on above: Encounter for prenat al care of first , second trimester (Primary Dx); headache in second trimester; Other epilepsy with status epilepticus, not intractable ([facility]) Start: 08-07-2024 End: 08-07-2024 Bamboo flowsheet Chelo L Floro CNM Work Phone: [facility] Start: 08-07-2024 End: 08-07-2024 Bamboo flowsheet Chelo Arthur Floro CNM Work Phone: [facility] Start: 07-30-2024 End: 07-30-2024 Orders Only Tanya Roche MD Work Phone: [facility] Start: 07-25-2024 End: 07-25-2024 Telephone encounter Chelo Carbajalo CNM Work Phone: [facility] Start: 07-25-2024 End: 07-25-2024 Office consultation new/estab patient 60 min Bess Gonzalez MD Work Phone: [facility] Comment on above: Seizure disorder dur ing in second trimester (CMS- HCC) (Primary Dx) Start: 07-25-2024 End: 07-25-2024 ambulatory CHELO [facility] Start: 07-10-2024 End: 07-10-2024 Chart abstracting Bess Gonzalez MD Work Phone: [facility] Start: 07-10-2024 End: 07-10-2024 Telephone encounter Chelo Carbajalo CNM Work Phone: [facility] Start: 07-06-2024 End: 07-06-2024 Refill Tanya Roche MD Work Phone: [facility] Comment on above: Seizure disorder (CM S/HCC) Start: 07-05-2024 End: 07-05-2024 Refill Tanya Roche MD Work Phone: [facility] Comment on above: Seizure disorder (CM S/HCC) Start: 07-05-2024 End: 07-05-2024 Telephone encounter Tanya Roche MD Work Phone: [facility] Comment on above: Seizure disorder (CM S/HCC) Start: 07-02-2024 End: 07-02-2024 Subsequent care visit Chelo Briscoe CNM Work Phone: [facility] Comment on above: Encounter for prenat al care of first , second trimester (Primary Dx); related condition in second trimester Start: 07-02-2024 End: 07-02-2024 ambulatory CHELO CARBAJALO Not Available Start: 07-02-2024 End: 07-02-2024 Bamboo flowsheet Chelo Arthur Carbajalo CNM Work Phone: [facility] Start: 07-02-2024 End: 07-02-2024 Bamboo flowsheet Chelo Atrhur Carbajalo CNM Work Phone: [facility] [...] 05-03-2024 End: 05-03-2024 Initial care visit Chelo L Floro CNM Work Phone: [facility] Comment on above: GA: 8w4d Start: 05-03-2024 End: 05-03-2024 ambulatory CHELO L FLORO Not Available Start: 12-27-2023 End: 12-27-2023 ambulatory CHELO L FLORO Not Available Start: 12-26-2023 Refill Casandra smith THUMB SEWER-GUEST RELATIONS ASSOCIATE Work Phone: [facility] Start: 12-20-2023 End: 12-21-2023 Emergency department patient visit CASANDRA KINCAID 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/HCC) (Primary Dx) Start: 11-18-2023 End: 11-18-2023 ambulatory TANYA ROCHE Not Available Start: 11-17-2023 Chart abstracting Tanya graff MD Work Phone: [facility] Start: 11-08-2023 End: 11-08-2023 ambulatory CHELO L FLORO Not Available Start: 06-23-2022 Telephone encounter Hiwot tracy MD Work Phone: Neurology Comment on above: Other (Please mail a nother copy of lab order to family.) Start: 06-07-2022 End: 06-07-2022 ambulatory HIWOT BRYANT Facility:[facility] Start: 06-07-2022 End: 06-07-2022 ambulatory Hiwot Bryant MD Work Phone: Neurology Comment on above: 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 Start: 05-05-2022 Refill Hiwot Bryant MD [...] Antibody screen rbc each serum technique Chelo Briscoe CN Work Phone: Start: 05-03-2024 Hemoglobin glycosyla orly a1c Chelo Briscoe CN Work Phone: Start: 05-03-2024 Iaad ia hepatitis b surface antigen Chelo Briscoe CN Work Phone: Start: 05-03-2024 TSH W/REFLEX TO FT4 Amber Briscoe CN Work Phone: Start: 05-03-2024 Urine test visual color cmprsn meths Chelo Briscoe CN Work Phone: Start: 04-23-2021 Adult depression scr eening assessment Hiwot Bryant MD Work Phone: Plan of Treatment Date Care Activity Detail Author Start: 07-25-2025 Adult BMI Screening Adult BMI Screen ing [facility] Start: 07-25-2025 Tobacco Screening Tobacco Screening [facility] Start: 01-01-2025 DTaP,Tdap and Td Vaccines (7 - Td or Tdap) DTaP,Tdap and Td Vaccines (7 - Td or Tdap) [facility] Start: 12-27-2024 End: 12-27-2024 Patient encounter procedure 12/27/2024 2:00 PM EDT Office Visit [facility] [address] [place] [address] Chelo Briscoe, CN [address] [place], [place] [id number] [facility] Start: 12-19-2024 Adult BMI Screening Adult BMI Screen ing [facility] Start: 12-19-2024 Tobacco Screening Tobacco Screening [facility] Start: 11-08-2024 End: 11-08-2024 Patient encounter procedure 11/08/2024 2:30 PM EST Routine [facility] [address] [place] [address] Chelo Briscoe, CNM [address] [place] [address] [facility] Start: 11-08-2024 End: 11-08-2024 ambulatory 11/08/2024 11:10 AM EST Initial [facility] [address] [address] Tom Boland DO [address] [place] [address] [place] [address] [facility] Start: 10-30-2024 End: 10-30-2024 Patient encounter procedure 10/30/2024 10:00 AM EST Routine [facility] [address] [place] [address] Chelo Briscoe, CNM [address] [place] [address] [facility] Start: 10-29-2024 End: 10-29-2024 Patient encounter procedure 10/29/2024 6:30 PM EST Routine [facility] [address] [place] [address] Chelo Briscoe, CNM [address] [place] [address] [facility] Start: 10-23-2024 End: 10-23-2024 Patient encounter procedure 10/23/2024 3:30 PM EST Routine [facility] [address] [place] [address] Chelo Briscoe, CNM [address] [place] [address] [facility] Start: 10-08-2024 End: 10-08-2024 Patient encounter procedure [facility] Comment on above: Arrived Start: 09-21-2024 End: 09-21-2024 Patient encounter procedure 09/21/2024 9:00 AM EST [facility] Visit [facility] [address] [place] [phone] Feliciano Chapa, DPM [address] [place] [address] Arrived [facility] Comment on above: Arrived Start: 09-04-2024 End: 09-04-2024 Patient encounter procedure 09/04/2024 2:30 PM EST Routine [facility] [address] [place] [address] Chelo Briscoe, CNM [address] [place], [place] [id number] [facility] Start: 09-04-2024 End: 09-04-2025 CBC panel - Blood by Automated count CBC Lab Routine Screening for iron deficiency anemia Expected: 09/04/2024 (Approximate), Expires: 09/04/2025 [facility] Comment on above: Expected: 09/04/2024 (Approximate), Expires: 09/04/2025 Start: 09-04-2024 End: 09-04-2025 GLUCOSE, GESTATIONAL SCREEN (50G)-135 CUTOFF GLUCOSE, GESTATIONAL SCREEN (50G)-135 CUTOFF Lab Routine Screening for diabetes mellitus (DM) Expected: 09/04/2024 (Approximate), Expires: 09/04/2025 [facility] Healthcare Work Phone: Comment on above: Expected: 09/04/2024 (Approximate), Expires: 09/04/2025 Start: 09-04-2024 End: 09-04-2025 US for US OB follow up transabdominal approach Imaging Routine related condition in third trimester Expected: 09/04/2024, Expires: 09/04/2025 [facility] Comment on above: Expected: 09/04/2024 , Expires: 09/04/2025 Start: 08-07-2024 End: 08-07-2024 Patient encounter procedure 08/07/2024 2:30 PM EDT Routine [facility] [address] [place] [phone] Chelo Briscoe CNM [address] [place] [address] [facility] Start: 07-30-2024 End: 07-30-2024 Professional / ancillary services management 07/30/2024 5:00 PM EDT Ancillary Procedure [facility] [address] [phone] [facility] Start: 07-30-2024 End: 07-30-2024 Patient encounter procedure 07/30/2024 4:30 PM EDT Routine [facility] [address] [place] [phone] Chelo Briscoe CNM [address] [place] [address] [facility] Start: 07-25-2024 End: 07-25-2024 Patient encounter procedure [facility] Start: 07-02-2024 End: 07-02-2024 Patient encounter procedure [facility] Comment on above: Arrived Start: 07-02-2024 End: 07-02-2025 US for US OB 14+ weeks anatomy scan Imaging Routine related condition in second trimester Expected: 07/02/2024, Expires: 07/02/2025 [facility] Work Phone: Comment on above: Expected: 07/02/2024 , Expires: 07/02/2025 Start: 06-10-2024 Influenza vaccination Influenza Vacc ine [facility] Start: 06-04-2024 End: 06-04-2024 Patient encounter procedure 06/04/2024 3:45 PM EDT Routine [facility] [address] [place] [phone] Chelo Briscoe CNM [address] [place] [address] Arrived [facility] Comment on above: Arrived Start: 05-31-2024 End: 05-31-2024 Patient encounter procedure 05/31/2024 4:30 PM EDT Routine [facility] [address] [place] [phone] Chelo Briscoe, [facility] [address] [place] [address] [facility] Start: 12-13-2023 End: 12-13-2023 Patient encounter procedure 12/13/2023 2:00 PM EST Office Visit [facility] [address] [place] [phone] Chelo Briscoe, [facility] [address] [place] [address] [facility] Start: 11-18-2023 End: 11-18-2023 Patient encounter procedure 11/18/2023 10:50 AM EST Office Visit [facility] [address] [address] Tanya Roche MD [address] [facility] [address] [place] [address] [facility] Start: 2023 Screening for malign ant neoplasm of cervix Pap Smear [facility] Start: 06-10-2023 Influenza vaccination Influenza Vacc ine [facility] Start: 06-10-2022 Influenza vaccination INFLUENZA (#1) [facility] Start: 06-07-2022 End: 08-07-2022 levETIRAcetam [Mass/volume] in Serum or Plasma LEVETIRACETAM Lab Routine Generalized convulsive epilepsy without intractable epilepsy (HCC) Expected: 06/07/2022, Expires: 08/07/2022 [facility] Work Phone: Comment on above: Expected: 06/07/2022 , Expires: 08/07/2022 Start: 04-23-2022 Adult depression screening assessment DEPRESSION SCREENING [facility] Start: 2021 Urine microalbumin profile DTAP,TDAP,TD (1 - Tdap) [facility] Start: 2020 Adult BMI Follow Up Plan Adult BMI Follow Up Plan [facility] Start: 2020 CHLAMYDIA SCREENING (18-24) CHLAMYDIA SCREENING (18-24) [facility] Start: 2020 GC (GONORRHEA) SCREENING (18-24) GC (GONORRHEA) SCREENING (18-24) [facility] Start: 2020 HEPATITIS C SCREENING HEPATITIS C SC REENING [facility] Start: 2020 HIV SCREENING HIV SCREENING [facility] Start: 2016 PEDS TO ADULT TRANSITION ANNUAL ASSESSMENT PEDS TO ADULT TRANSITION ANNUAL ASSESSMENT [facility] Start: 2014 Depression Screening Depression Scre ening [facility] Start: 2014 PEDS TO ADULT TRANSITION INITIAL DISCUSSION PEDS TO ADULT TRANSITION INITIAL DISCUSSION [facility] Start: 2013 HPV VACCINE (1 - 2-d ose series) HPV VACCINE (1 - 2-dose series) [facility] Start: 2012 MENINGOCOCCAL B: Consider based on risk (1 of 2 - Risk Bexsero 2-dose series) MENINGOCOCCAL B: Consider based on risk (1 of 2 - Risk Bexsero 2-dose series) [facility] Start: 05-09-2003 COVID-19 VACCINE (#1) COVID-19 VACCI NE (#1) [facility] Start: 2002 HEPATITIS B (1 of 3 - 3-dose series) HEPATITIS B (1 of 3 - 3-dose series) [facility] Immunizations Immunization Date Immunization Notes Care Provider Fa kacie 10-31-2020 influenza virus vaccine, unspecified formulation Casandra Kincaid APRN-GUEST RELATIONS ASSOCIATE Work Phone: [facility] Payers Date Payer Category Payer Commercial Managed C are - [employer] [id number] 2023 Unknown [id number] 2023 Unknown [id number] 2022 Private Health Insurance [id number] 2022 Unknown [id number] 2018 Unknown [employer] [id number] 2018-Present [phone] [address] [address] [place] [address] PPO [id number] 2002 Unknown [id number] [id number] .1286 2002 Unknown [id number] .1286 2002 Unknown [id number] [id number] .1286 2002 Unknown [id number] 2.16.840.1.424405.3.579.2 .1286 2002 Unknown [id number] 2.16.840.1.562891.3.579.2 .1259 2002 Unknown [id number] 2.16.840.1.681399.3.579.2 .1259 2002 Unknown [id number] 2.16.840.1.700435.3.579.2 .1259 2002 Unknown [id number] 2.16.840.1.853884.3.579.2 .1259 2002 Unknown [id number] 2.16.840.1.699000.3.579.2 .9 2002 Unknown [id number] 2.16.840.1.259821.3.579.2 .9 2002 Unknown [id number] 2.16.840.1.723253.3.579.2 .9 2002 Unknown [id number] 2.16.840.1.774388.3.579.2 .9 2002 Unknown [id number] 2.16.840.1.853344.3.579.2 .9 2002 Unknown [id number] 2.16.840.1.883868.3.579.2 .9 2002 Unknown [id number] 2.16.840.1.799824.3.579.2 .9 2002 Unknown [id number] 2.16.840.1.903700.3.579.2 .9 2002 Unknown [id number] [id number] .1259 Social History Date Type Detail Facility Start: 10-09-2018 End: 11-08-2023 Tobacco smoking status NHIS Never smoked tobacco [facility] Start: 2019 [facility] Start: 2002 Sex Assigned At Female [facility] Start: 10-09-2018 End: 11-08-2023 Tobacco use and exposure Smokeless tobacco non-user [facility] Start: 05-21-2022 End: 05-31-2022 Exposure to SARS-CoV-2 (event) Unable to assess [facility] Work Phone: Start: 11-08-2023 End: 09-21-2024 Alcohol intake Lifetime non-drinker (finding) [facility] Start: 11-08-2023 End: 09-21-2024 History of Social function [facility] Start: 11-08-2023 End: 09-21-2024 Tobacco use panel [facility] Start: 2002 Sex Assigned At Not on file [facility] Childcare Unknown [facility] Start: 03-18-2024 [facility] Start: 05-24-2024 Gender identity Identifies as female gender (finding) [facility] Start: 05-13-2015 Sex Female (finding) [facility] Goals Date Patient Goal Desired Activity /State Personal health goal Clinical Notes 05-01-2014 to 10-29-2024 Telephone Encounter - Aneta Pop - 10/29/2024 11:08 AM ESTTelephone Encounter - Aneta Pop - 10/29/2024 11:08 AM Michelle Briscoe CNM - 10/25/2024 9:00 AM EST Note Date & Type Note Facility 10-29-2024 Telephone encounter Note Hi there, my name is Yefri. chago Forbes a roxanne I am a patient of [facility]. I am 34 weeks and I have an appointment with her today. At 630I was sent to [facility] , admitted and then discharged a Tuesday evening. I did just get my blood pressure taken here at work. By a nurse who actually used to work for [employer] once and it was 157 over 88, and then 10 min later, it was 138 over 92, so Cony suggested that I let Amber know I have been having pain in my chest for about 2 h now, so have someone give me a call back at [phone]. Thanks, PI. Done [facility] 10-29-2024 Miscellaneous Notes Hi there, my name is Yefri. Andrei s a m I am a patient of [facility]. I am 34 weeks and I have an appointment with her today. At 630I was sent to [facility] , admitted and then discharged a Tuesday evening. I did just get my blood pressure taken here at work. By a nurse who actually used to work for [employer] once and it was 157 over 88, and then 10 min later, it was 138 over 92, so Cony suggested that I let Amber know I have been having pain in my chest for about 2 h now, so have someone give me a call back at [phone]. Thanks, PI. Done documented in this encounter [facility] 10-25-2024 History of Present illness Narrative Subjective No chief complaint on file. Janki Persaud is a 23 y.o. at 33w4d with a working estimated date of delivery [...] Lv 1 Current Her is complicated by: itchy all over, history of epilepsy, no seizures for several months. Objective Physical Exam weight: 145 lb Expected Total Weight Gain: 25 lb-35 lb Pregravid BMI: 24.22 BP: 140/90 Urine protein-negative Urine glucose-negative Assessment/Plan Diagnoses and all orders for this visit: Encounter for care of first , third trimester Elevated blood pressure affecting in third trimester, antepartum MA obtains BP and the first one was 140/90 and 160/100. After a couple minutes of rest on her left side I took the BP and it was 130/84. Patient's pulse is elevated at 118 and she states I can always feel my heart pounding at different times of the day and then I sit and rest and it goes away. I want to send patient to the hospital for evaluation of blood pressure and heart. Dr Lindo school operations manager for OB today and she will manage and call me if needed. Patient going to call her and have him come and get her and drive her to [place]. Continue vitamin. Labs reviewed. GBS taken. Expected mode of delivery Follow up in 1 week for a routine visit. documented in this encounter [facility] 10-08-2024 History of Present illness Narrative Subjective [...] by: seizure disorder/ epilepsy last seizure was 2020 almost 5 years ago. She sees neurology and did see MFM also Objective Physical Exam weight: 142 lb Expected Total Weight Gain: 25 lb-35 lb Pregravid BMI: 24.22 BP: 120/78 Urine protein-negative Urine glucose-negative Assessment/Plan Continue vitamin. Labs reviewed. GBS taken. Expected mode of delivery Follow up in 1 week for a routine visit. documented in this encounter [facility] 09-21-2024 History of Present illness Narrative Images [...] History Past Medical History: Diagnosis Date Epilepsy ([facility]) 11/21/2023 ETD (eustachian tube dysfunction) History of being hospitalized 2009 Strep Seizure disorder ([facility]) Medications Current Outpatient Medications: folic acid (Folvite) [...] History: Procedure Laterality Date MOUTH SURGERY 08/2020 [place] teeth implant OTHER SURGICAL HISTORY 2002 Pyloric [...] Feliciano Chapa DPM documented in this encounter [facility] 09-10-2024 Telephone encounter Note Pt called again regarding message concerning discontinue of her cream [facility] 09-10-2024 Miscellaneous Notes Pt called again regarding message concerning discontinue of her cream documented in this encounter [facility] 09-05-2024 Telephone encounter Note Patient called in today stating the terbinafine cream you prescribed her yesterday is discontinued and she needs something else called in. Ty [facility] 09-05-2024 Miscellaneous Notes Patient called in today stating the terbinafine cream you prescribed her yesterday is discontinued and she needs something else called in. Ty documented in this encounter [facility] 09-04-2024 History of Present illness Narrative Subjective [...] a routine visit. documented in this encounter [facility] 08-07-2024 History of Present illness Narrative Subjective No chief complaint on file. Yefri Persuad is a 23 y.o. at 22w2d with [...] Current Her is complicated by: epilepsy, saw [facility] The following portions of the chart were [...] a routine visit. documented in this encounter [facility] 07-25-2024 Telephone encounter Note Patient called and wants to know if she can reschedule her appt to 24 weeks, instead of coming in on Tuesday. Please call her at [phone]. Ty [facility] 07-25-2024 Miscellaneous Notes Patient called and wants to know if she can reschedule her appt to 24 weeks, instead of coming in on Tuesday. Please call her at [phone]. Ty documented in this encounter [facility] 07-25-2024 History of Present illness Narrative Headache/epigastric [...] yet Have you been seen here at [facility] in a previous ? No Recent ER visits or hospitalizations? No Bring blood sugar log or meter with you today? (Please bring them with you for every visit at [facility]) n/a Flu vaccine (Aug-December)? No Any concerns [...] Active Problem List Diagnosis Seizure disorder during ([facility]) Past Medical History: Diagnosis Date Eustachian tube dysfunction Seizures ([facility]) Visual impairment glasses PAST OBSTETRICAL HISTORY: OB History 1 Para Term AB Living SAB IAB Ectopic Multiple Live Births SURGICAL HISTORY: Past Surgical History: Procedure Laterality Date DENTAL SURGERY wisdom teeth EXCISION LESION LOWER EXTREMITY Left 02/06/2021 Performed by Feliciano Chapa DPM at [facility] TONSILLECTOMY ALLERGIES: Allergies Allergen Reactions Ketamine Strange behavior waking up, not sure if it was the Ketamine CURRENT MEDICATIONS: Current Outpatient Medications: folic acid (FOLVITE) 1 mg tablet, Take 1 tablet (1 mg total) by mouth in the morning., Disp: , Rfl: levETIRAcetam (KEPPRA) 250 mg tablet, Take 1 tablet (250 mg total) by mouth in the morning., Disp: , Rfl: [id number] acid ( 19) 29 mg iron- 1 [...] and the other consultants, we search on epic and all the available care everywhere epic I did review all the imaging studies of the patient available on EMR, ordered by the primary care physician and the other trial consultant HABITS: Patient activity no restrictions, diet [...] OB office. Term spontaneous vaginal delivery at local [facility] is anticipated with C section reserve for [...] levels 3. Term spontaneous vaginal delivery at local [facility] is anticipated with C section reserve for routine obstetrical indications. DISPOSITION: At this point the patient is in complete care of her appraiser timber. Patient does have ultrasound office visit scheduled with us. Thank you for allowing me to participate in Yefri Persaud . If there any questions please do not hesitate to contact us. Sincerely, BESS GONZALEZ MD documented in this encounter [facility] 07-10-2024 Telephone encounter Note Patient called lvm @ 10:55am saying she had received a call last wk from Amber's nurse Jazmine saying she would be receiving a call from maternal medicine. Pt would like to know why she was referred to them and she has not received a call yet from maternal medicine yet. [facility] 07-10-2024 Miscellaneous Notes Patient called lvm @ 10:55am saying she had received a call last wk from [facility] nurse Jazmine saying she would be receiving a call from maternal medicine. Pt would like to know why she was referred to them and she has not received a call yet from maternal medicine yet. documented in this encounter [facility] 07-05-2024 Telephone encounter Note Pt left message questioning dosage of her medication, as well as saying the specialty pharmacy sent a request and they have yet to receive anything back from us. Please advise. [facility] 07-05-2024 Miscellaneous Notes Pt left message questioning dosage of her medication, as well as saying the specialty pharmacy sent a request and they have yet to receive anything back from us. Please advise. documented in this encounter [facility] 07-02-2024 History of Present illness Narrative Subjective [...] a routine visit. documented in this encounter [facility] 06-14-2024 History of Present illness Narrative Subjective [...] this visit: headache in second trimester - xijcamyevb-hxvlwxlyusaau-depjglv e 50-325-40 MG tablet; Take 1 tablet [...] a routine visit. documented in this encounter [facility] 06-14-2024 Telephone encounter Note Patient left a voicemail- she has had a consistent migraine x 1 week all day long. She is staying hydrated and eating well. Tylenol is not helping. She vomited 8 times this morning. She was tearful on the voicemail. Thank you. [facility] 06-14-2024 Miscellaneous Notes Patient left a voicemail- she has had a consistent migraine x 1 week all day long. She is staying hydrated and eating well. Tylenol is not helping. She vomited 8 times this morning. She was tearful on the voicemail. Thank you. documented in this encounter [facility] 06-04-2024 History of Present illness Narrative Subjective [...] a routine visit. documented in this encounter [facility] 05-31-2024 Telephone encounter Note My MA called and spoke with patient and went over the safe meds list. Patient does not want anything for headaches at this time [facility] 05-31-2024 Miscellaneous Notes My MA called and spoke with patient and went over the safe meds list. Patient does not want anything for headaches at this time Pt cb to see if someone had read her my chart message. She still isnt feeling well and doesn't know what to do documented in this encounter [facility] 05-29-2024 Telephone encounter Note Pt cb to see if someone had read her my chart message. She still isnt feeling well and doesn't know what to do [facility] 05-03-2024 History of Present illness Narrative Subjective [...] and I will also refer her to [facility] for baseline consultation., Blue education folder given. Patient educated on safe medication list. Genetic testing information given. Discussed the do's and don'ts in the blue folder. We discussed labs and what we draw and what we are testing for. Patient is also informed that we do a urine drug test. Patient also given office phone number and [facility] number to call in case of an emergency or after hours needs. PVU and all questions answered. We did discuss place of delivery. Patient should plan to go to [facility] for all services unless an emergency and they need to go to the closest ER. We can make other arrangements possibly if patient would like to deliver at another facility but I did explain I am now at [facility] 100% of the time and would like to do all deliveries there. documented in this encounter [facility] 11-18-2023 History of Present illness Narrative Subjective [...] 11 Past Medical History: Diagnosis Date Epilepsy ([facility]) ETD (eustachian tube dysfunction) History of being hospitalized 2009 Strep Seizure disorder ([facility]) Past Surgical History: Procedure Laterality Date MOUTH SURGERY 08/2020 [place] teeth implant OTHER SURGICAL HISTORY 2002 Pyloric [...] downgoing Left Plantar: downgoing Right pathological reflexes: Poalo's absent. Ankle clonus absent. Left pathological reflexes: Paolo's absent. Ankle clonus absent. Coordination Iasjwi-hn-pqom, rapid alternating movements and vhwl-fn-twfg normal bilaterally without dysmetria. Gait Normal casual, [...] episodes and symptoms. documented in this encounter [facility] 06-23-2022 Miscellaneous Notes Lab order mailed. Liz Mckeon RN General call : Full name of person calling: Nehal Xiong Relationship to patient: mom Phone # : [phone] Reason for call: Please mail another copy of lab order to family. Mom has not received it. Patient of Dr. Bryant documented in this encounter [facility] 06-07-2022 Note HNO ID: [id number] Author: Hiwot Bryant MD Service: ? Author Type: Physician Type: Progress Notes Filed: 06/07/2022 1:42 PM Note Text: [facility] [place], Epilepsy Center Pediatric Epilepsy Date of Service: 06/07/2022 EPILEPSY CENTER - RETURN VISIT Last Epilepsy Visit: 04/30/2021 AGE: Yefri is now 21 year old. The patient was accompanied during the visit by the: mother We had a visit using: [employer] I received consent from the patient/parent/guardian to [...] dose in 05/2021 (more content not included)... [facility] 06-07-2022 History of Present illness Narrative Images from the original note were not included. [facility] [place] Ep[facility]psy [facility] Pediatric Epilepsy Date of Service: 06/07/2022 EPILEPSY CENTER - RETURN VISIT Last Epilepsy Visit: 04/30/2021 AGE: Yefri is now 21 year old. The patient was accompanied during the visit by the: mother We had a visit using: [employer] I received consent from the patient/parent/guardian to [...] which included preparing to see the patient, holy-fy-bymd patient care, completing clinical documentation, counseling and educating the patient/family/caregiver, and ordering medications, tests, or procedures. Hiwot Bryant M.D. Professor of Neurology, [facility] of [facility] Staff Physician, [facility] Ep[facility]psy [facility] [place] [id number] CC: [facility] [place] Referring Team Johanne Meza MD Referring Team, [facility] [phone] [place] [address] [place] [address] Johanne Meza ([facility]) [address] [place] [address] The family of: Yefri Xiong [address] [place] [address] documented in this encounter [facility] 05-06-2022 Miscellaneous Notes The following approved medication [...] electronically. Thank you. -Routed to Dr. Annette Mckeon, [place] Prescription Refill: Requested by: pharmacy Please Fax Caller Contact Number: [phone] (home) Pharmacy Name: [facility] Pharmacy Number: [id number] Generic/ brand: generic 30 or 90 day supply requested: 90 Last appointment: 04/30/21 Next Appointment: none Patient of Dr. miller documented in this encounter [facility] 07-15-2021 Note HNO ID: [id number] Author: Hiwot Bryant MD Service: ? Author Type: Physician Type: Progress Notes Filed: 07/15/2021 4:28 PM Note Text: [facility] [place], Epilepsy Center Pediatric Epilepsy Date of Service: [...] pandemic. Hiwot Bryant M.D. Professor of Neurology, 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 07/28/2009 04/29/2021 documented as of this encounter (statuses as of 05/06/2022) [facility] History of Past illness Narrative* Problem Noted Date Resolved Date Epilepsy 05/01/2014 04/29/2021 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 07/28/2009 04/29/2021 documented as of this encounter (statuses as of 06/07/2022) [facility] History of Past illness Narrative* Problem Noted Date Resolved Date Epilepsy 05/01/2014 04/29/2021 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 07/28/2009 04/29/2021 documented as of this encounter (statuses as of 06/23/2022) [facility] Diagnosis 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 [facility] Diagnosis 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 Generalized convulsive 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 [facility] Diagnosis 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)- Primary [facility] Diagnosis Seizure disorder during in second trimester (CMS-HCC)- Primary [facility] Diagnosis Encounter for care of first , second trimester- Primary headache in second trimester Other epilepsy with status epilepticus, not intractable (CMS/HCC) [facility] Diagnosis Skin rash- Primary Rash and other nonspecific skin eruption Screening for diabetes mellitus (DM) Screening for diabetes mellitus Screening for iron deficiency anemia related condition in third trimester [facility] Diagnosis Encounter for care of first , first trimester- Primary [facility] Diagnosis Ingrown toenail- Primary Ingrowing [...] care of first , third trimester- Primary Elevated blood pressure affecting in third trimester, antepartum documented in this encounter [facility]ructionsNot on filedocumented in this encounterProMedica [facility] SystemInstructionsNot on filedocumented in this encounterProMediWebupo SystemInstructionsNot on filedocumented in this encounterProGerman [facility] Summary Purpose Family History No Family History Records FoundNo Family History Records FoundNo Family History Records FoundNo Family History Records FoundNo Family History Records Found Advance Directives No Advanced Directives Records FoundNo Advanced Directives Records FoundNo Advanced Directives Records FoundNo Advanced Directives Records FoundNo Advanced Directives Records Found Reason for Referral Specialty Diagnoses / Procedures Referred By Contac t Referred To Contact Obstetrics and Gynecology Diagnoses Encounter for care of first , first trimester Procedures OR OFFICE/OUTPATIENT NEW HIGH MDM 60 MINUTES Kanika Briscoekhoi Gibson, CNM [address] [place] [address] Chelo Briscoe, CNM [address] [place] [address] Referral ID Status Reason Start Date Expiration Date Visits Requested Visits Authorized [id number] Pending Review Specialty Services Required 05/29/2024 11/25/2024 1 1 Additional Source Comments INFORMATION SOURCE (unrecogn ized section and content) DATE CREATED AUTHOR 09/18/2021 [facility] dical Specialist DATE CREATED AUTHOR AUTHOR'S ORGANIZ ATION 07/07/2022 [facility] DATE CREATED AUTHOR AUTHOR'S ORGANIZ ATION 12/22/2023 [facility] DATE CREATED AUTHOR AUTHOR'S ORGANIZ ATION 07/27/2024 [facility] DATE CREATED AUTHOR AUTHOR'S ORGANIZ ATION 10/28/2024 [facility] dical Specialists EPIC Source Comments (unrecognize d section and content) In the event this informatio n is protected by the Federal Confidentiality of Alcohol and Drug Abuse Patient Records regulations: The Federal rules restrict any use of the information to criminally investigate or prosecute any alcohol or drug abuse patient.[facility] Hospital[facility] the event this information is protected by the Federal Confidentiality of Alcohol and Drug Abuse Patient Records regulations: The Federal rules restrict any use of the information to criminally investigate or prosecute any alcohol or drug abuse patient.[facility] Hospital[facility] the event this information is protected by the Federal Confidentiality of Alcohol and Drug Abuse Patient Records regulations: The Federal rules restrict any use of the information to criminally investigate or prosecute any alcohol or drug abuse patient.[facility] Reason for Visit (unrecogniz ed section and [...] Care Teams (unrecognized sec tion and content) Plant Maintenance Worker Relationship Specialty Start Date End Date Johanne Meza MD [address] [place] [phone] PCP - General Family Practice 04/29/14 Johanne Meza MD [address] [place] [address] NI Referring Team Family Practice 04/29/21 Plant Maintenance Worker Relationship Specialty Start Date End Date Johanne Meza MD [address] [place] [phone] PCP - General Family Practice 04/29/14 Johanne Meza MD [address] [place] [phone] NI Referring Team Family Practice 04/29/21 Plant Maintenance Worker Relationship Specialty Start Date End Date Johanne Meza MD [address] [place] [address] PCP - General Family Practice 04/29/14 Johanne Meza MD [address] [place] [address] NI Referring Team Family Practice 04/29/21 Plant Maintenance Worker Relationship Specialty Start Date End Date Johanne Meza MD [address] [place] [address] PCP - External PCP Family Medicine 03/19/23 Plant Maintenance Worker Relationship Specialty Start Date End Date Johanne Meza MD [address] [place] [address] PCP - External PCP Family Medicine 03/19/23 Plant Maintenance Worker Relationship Specialty Start Date End Date Johanne Meza MD [address] [place] [address] PCP - General Family Medicine 10/21/17 Plant Maintenance Worker Relationship Specialty Start Date End Date Johanne Meza MD [address] [place] [address] PCP - External PCP Family Medicine 03/19/23 Plant Maintenance Worker Relationship Specialty Start Date End Date Johanne Meza MD [address] [place] [address] PCP - General Family Medicine 10/21/17 Plant Maintenance Worker Relationship Specialty Start Date End Date Johanne Meza MD [address] [place] [address] PCP - General Family Medicine 10/21/17 Plant Maintenance Worker Relationship Specialty Start Date End Date Johanne Meza MD [address] [place] [address] PCP - External PCP Family Medicine 03/19/23 Plant Maintenance Worker Relationship Specialty Start Date End Date Johanne Meza MD [address] [place] [address] PCP - External PCP Family Medicine 03/19/23 Plant Maintenance Worker Relationship Specialty Start Date End Date Johanne Meza MD [address] [place] [phone] PCP - External PCP Family Medicine 03/19/23 Plant Maintenance Worker Relationship Specialty Start Date End Date Johanne Meza MD [address] [place] [phone] PCP - External PCP Family Medicine 03/19/23 Plant Maintenance Worker Relationship Specialty Start Date End Date Johanne Meza MD [address] [place] [address] PCP - External PCP Family Medicine 03/19/23 Plant Maintenance Worker Relationship Specialty Start Date End Date Johanne Meza MD [address] [place] [address] PCP - External PCP Family Medicine 03/19/23 Plant Maintenance Worker Relationship Specialty Start Date End Date Johanne Meza MD [address] [place] [address] PCP - External PCP Family Medicine 03/19/23 Plant Maintenance Worker Relationship Specialty Start Date End Date Johanne Meza MD [address] [place] [address] PCP - External PCP Family Medicine 03/19/23 Plant Maintenance Worker Relationship Specialty Start Date End Date Johanne Meza MD [address] [place] [address] PCP - External PCP Family Medicine 03/19/23 Plant Maintenance Worker Relationship Specialty Start Date End Date Johanne Meza MD [address] [place] [address] PCP - External PCP Family Medicine 03/19/23 Plant Maintenance Worker Relationship Specialty Start Date End Date Johanne Meza MD [address] [place] [address] PCP - External PCP Family Medicine 03/19/23 Plant Maintenance Worker Relationship Specialty Start Date End Date Johanne Meza MD [address] [place] [address] PCP - External PCP Family Medicine 03/19/23 [...] BE BASED ON THE PRIMARY CLINICAL RECORDS. [facility] [email or web address] [facility]. provides no warranty or guarantee of the accuracy or completeness of information in this document.
[2024-10-29 12:33] VITALS: BP 143/77; PULSE 115
[2024-10-29 12:42] LABS: Bilirubin Urine NEGATIVE (NEGATIVE); Blood Urine NEGATIVE (NEGATIVE); Clarity Urine CLEAR (CLEAR); Color Urine LT. YELLOW (YELLOW); Glucose Urine UA NEGATIVE (NEGATIVE); Ketones Urine NEGATIVE (NEGATIVE); Leukocyte Esterase Urine NEGATIVE (NEGATIVE); Nitrite Urine NEGATIVE (NEGATIVE); Protein Urine NEGATIVE (NEG/TRACE); Urobilinogen Urine 0.2 EU/dL (0.2-1.0)
--- NOTE | 2024-10-29 12:43 | PC.NURSE ---
10/29/2024 patient arrives to unit and has complaints of chest pains starting at 0830/0900 this morning. patient states, I was headed to the office for a office visit with Lana Sheriarnaud and she was not to arrive to the office until 1pm so I texted her adnw e came up with a plan to just have me come here to [facility]. Patient shows RN notes she made from this morning starting with around 0830 chest pains & mildly hard to breathe and heart rate at 105-109, 1047 bp-157/88 and heart rate-98, 1059 bp-138/92 and heart rate-103, 1127 bp-160/92 and heart rate-113. Patient also states that sometimes she feels like her heart is racing but her apple watch does not display any high heart rate. Patient states, I was just here on 10/25/2024 for an overnight stay and they did lab work. RN talks with Dr. Lindo and gathering a plan of care at this time. At this time orders obtained for urinalysis and P:C ratio. Verbal orders repeated back and verified at this time.
[2024-10-29 12:49] LABS: Creatinine Urine Random 57.96 mg/dL (20.00-300.00); Total Protein Urine Random 17.3 mg/dL (<=11.9)
[2024-10-29 12:52] VITALS: BP 132/85; PULSE 100; PULSE 106; TEMP 36.7
--- NOTE | 2024-10-29 12:54 | PC.NURSE ---
when RN asks patient are you short of breath right now? , patient states, slightly but im not sure it is worth telling you , RN clarifies do you feel just slightly short of breath or not at all just to clarify? and patient states, just slightly short of breath and i do have a slight headache. rating 5-6/10 on numeric scale.
--- NOTE | 2024-10-29 12:59 | PC.NURSE ---
Dr. Lindo at bedside communicating with patient. Patient's mother also at bedside.
--- NOTE | 2024-10-29 13:01 | PC.NURSE ---
patient states, I don't want to do the same blood work tests I just did last week. I just don't want to be dramatic. Patient has heart monitor on at this time for 30 days. Patient explains everything that was explained to RN to Dr. Lindo. Dr. Lindo orders to put patient on telemetry and observe patient.
--- NOTE | 2024-10-29 13:22 | PC.NURSE ---
Dr. Lindo observes patient strip for well being and contractions and also reviews lab results at this time.
--- NOTE | 2024-10-29 13:33 | PC.NURSE ---
RN at bedside and patient expresses wishing to not be monitored with telemetry again or to have any lab work done again. patient wishes to be discharged vs be observed any longer. Dr. Lindo approves order for discharge and going to bedside to discuss plan of care with patient and nike athlete Lana Briscoe from this point on. Dr. Lindo provides discharge order at this time and RN repeats back and verifies verbal order.
== END 2024-10-29 13:50 | disposition home or self-care (01) ==
PROVIDERS: Admitting Provider Obstetrics & Gynecology; PCP Family Medicine; Visit Provider Obstetrics & Gynecology
DX: O36.8190 Decreased fetal movements, unspecified trimester, not applicable or unspecified (principal); Z3A.00 Weeks of gestation of pregnancy not specified
CPT/HCPCS: 81003; 82570; 84156; G0378; G0379